=== PATIENT | female | born 1990 | race Caucasian/White ===

== ENCOUNTER 2023-05-04 10:52 | Outpatient (OUT) | payer BC, SELFPAY ==
[2023-05-04 12:50] LABS: Basophils Absolute Auto 0.1 10^3/uL (0.0-0.1); Eosinophils Absolute Auto 0.4 10^3/uL (0.0-0.7); Eosinophils Percent Auto 5.6 % (0.9-7.0); Hematocrit 40.1 % (36.0-48.0); Immature Granulocytes Abs Auto 0.03 10^3/uL (0.00-0.03); Immature Granulocytes Pct Auto 0.4 % (0.0-0.5); Lymphocytes Absolute Auto 2.4 10^3/uL (1.2-3.8); Lymphocytes Percent Auto 31.6 % (20.5-60.0); Mean Corpuscular HGB Conc 32.4 g/dL (29.9-35.2); Mean Corpuscular Hemoglobin 27.5 pg (26.7-34.0); Mean Corpuscular Volume 84.8 fL (81.0-99.0); Monocytes Absolute Auto 0.5 10^3/uL (0.3-0.8); Monocytes Percent Auto 6.7 % (1.7-12.0); Neutrophils Absolute Auto 4.2 10^3/uL (1.4-6.5); Neutrophils Percent Auto 54.7 % (43.0-75.0); Platelet Count 289 10^3/uL (150-450); Red Blood Count 4.73 10^6/uL (4.20-5.40); Red Cell Distribution Width 12.7 % (11.0-15.0); White Blood Count 7.7 10^3/uL (4.0-11.0)
[2023-05-04 13:05] LABS: Estimated Average Glucose 100 mg/dL; Glycohemoglobin A1C 5.1 % (4.5-6.2)
[2023-05-04 13:26] LABS: HCG Quantitative <1 mIU/mL
[2023-05-04 15:42] LABS: Free T4 1.12 ng/dL (0.76-1.46)
[2023-05-05 04:07] LABS: Luteinizing Hormone(LH) 9.1 mIU/mL (.)
[2023-05-07 14:08] LABS: Anti-Mullerian Hormone (AMH) 5.02 ng/mL (.)
[2023-05-11 02:07] LABS: DHEA, Serum 264 ng/dL (31-701)
== END 2023-05-04 10:53 | disposition home or self-care (01) ==
LOC: LAB 10:55
PROVIDERS: Visit Provider Obstetrics & Gynecology
DX: E28.2 Polycystic ovarian syndrome (principal)
CPT/HCPCS: 36415; 82397; 82626; 82627; 83001; 83002; 83036; 84439; 84443; 84702; 85025

== ENCOUNTER 2023-06-03 15:03 | Outpatient (OUT) | payer BC, SELFPAY ==
--- NOTE | 2023-06-03 15:07 | US_ITS ---
[address] [address] Patient Name: MABEL TOMLIN MRN: [id number] date: 1990 Sex: F Assigned Patient Location: US Current Patient Location: US Accession/Order Number: [id number] Exam Date: 06/03/2023 15:08 Report Date: 06/04/2023 18:00 At the request of: MARSHALL SALINAS Procedure: US OB transvaginal EXAMINATION: US OB transvaginal HISTORY: VAGINAL BLEEDING IN EARLY COMPARISON: No relevant comparison available. FINDINGS: Area of anechoic echogenicity in the endometrial cavity measuring 5.1 mm No pole is identified Cervix: Closed, 4 cm The uterus is normal, anteverted The ovaries are normal Clinical age: 5 weeks 3 days Clinical RONALDO: 01/31/2024 US/US OB transvaginal IMPRESSION: Possible very early intrauterine gestation. Correlate with beta hCG. Follow-up recommended Electronically authenticated by: BEN DURANT Date: 06/04/2023 18:00
== END 2023-06-03 15:04 | disposition home or self-care (01) ==
LOC: US 15:04
PROVIDERS: Visit Provider Physician Assistant
DX: R10.2 Pelvic and perineal pain (principal); R10.9 Unspecified abdominal pain; N92.6 Irregular menstruation, unspecified
CPT/HCPCS: 76817

== ENCOUNTER 2023-06-18 08:30 | Outpatient (OUT) | payer BC, SELFPAY ==
--- NOTE | 2023-06-18 08:32 | US_ITS ---
[address] [address] Patient Name: MABEL TOMLIN MRN: [id number] date: 1990 Sex: F Assigned Patient Location: US Current Patient Location: US Accession/Order Number: [id number] Exam Date: 06/18/2023 08:32 Report Date: 06/18/2023 10:23 At the request of: MIRLANDE RENE Procedure: US OB transvaginal EXAMINATION: US OB transvaginal HISTORY: MISSED MENSES COMPARISON: No relevant comparison available. FINDINGS: Plaza intrauterine gestation Gestational sac: 2.1 cm, 7 weeks 4 days CRL: 1.03 cm Yolk sac 0.1 mm Heart rate: 138 bpm Cervix: Closed, 4.2 cm The uterus is normal, retroverted, retroflexed The right ovary measures 3.3 x 2.5 x 3.0 cm. 1.8 cm corpus luteal cyst The left ovary is not visualized Clinical age: Unknown Ultrasound age: 7 weeks 1 day Ultrasound RONALDO: 02/03/2024 US/US OB transvaginal IMPRESSION: Viable plaza intrauterine gestation measuring 7 weeks 1 day Electronically authenticated by: BEN DURANT Date: 06/18/2023 10:23
== END 2023-06-18 08:31 | disposition home or self-care (01) ==
LOC: US 08:30
PROVIDERS: Visit Provider Obstetrics & Gynecology
DX: Z34.91 Encounter for supervision of normal pregnancy, unspecified, first trimester (principal); N92.6 Irregular menstruation, unspecified
CPT/HCPCS: 76817

== ENCOUNTER 2023-07-01 09:48 | Outpatient (OUT) | payer BC, SELFPAY ==
--- NOTE | 2023-07-01 09:58 | US_ITS ---
[place] [id number] Patient Name: MABEL TOMLIN MRN: [id number] date: 1990 Sex: F Assigned Patient Location: [facility] Current Patient Location: RAD Accession/Order Number: [id number] Exam Date: 07/01/2023 10:00 Report Date: 07/01/2023 15:17 At the request of: MIRLANDE RENE Procedure: US OB transvaginal EXAMINATION: US OB transvaginal HISTORY: Bleeding In Early O20.9, History Of Miscarriage COMPARISON: Ultrasound OB transvaginal 06/18/2023, 06/03/2023 FINDINGS: GESTATIONAL SAC: Present and normal appearing. YOLK SAC: Present and normal appearing. POLE: Present and normal appearing. CARDIAC: Present. UTERUS: Normal size and appearance. OVARIES: Right: Normal. Left: Not seen. CERVIX: 4.1 cm in length and closed. CUL-DE-SAC: Normal. OTHER: None. AGE BY LMP: 9 weeks 0 days RONALDO BY LMP: 02/03/2024 AGE BY US CRL: 9 weeks 0 days RONALDO BY US CRL: 02/03/2024 US/US OB transvaginal IMPRESSION: 1. Single live intrauterine . 2. No suspicious findings to suggest impending . Electronically authenticated by: FAVIAN FLORENTINO Date: 07/01/2023 15:17
== END 2023-07-01 09:49 | disposition home or self-care (01) ==
PROVIDERS: Visit Provider Obstetrics & Gynecology
DX: O20.9 Hemorrhage in early pregnancy, unspecified (principal); Z3A.09 9 weeks gestation of pregnancy
CPT/HCPCS: 76817

== ENCOUNTER 2023-07-06 11:57 | Outpatient (OUT) | payer BC, SELFPAY ==
[2023-07-06 12:35] LABS: Basophils Absolute Auto 0.1 10^3/uL (0.0-0.1); Basophils Percent Auto 0.6 % (0.2-2.0); Eosinophils Absolute Auto 0.4 10^3/uL (0.0-0.7); Eosinophils Percent Auto 2.8 % (0.9-7.0); Hematocrit 37.1 % (36.0-48.0); Hemoglobin 12.8 g/dL (12.0-16.0); Immature Granulocytes Abs Auto 0.05 10^3/uL (0.00-0.03); Immature Granulocytes Pct Auto 0.4 % (0.0-0.5); Lymphocytes Absolute Auto 2.3 10^3/uL (1.2-3.8); Lymphocytes Percent Auto 17.2 % (20.5-60.0); Mean Corpuscular HGB Conc 34.5 g/dL (29.9-35.2); Mean Corpuscular Hemoglobin 28.3 pg (26.7-34.0); Mean Corpuscular Volume 82.1 fL (81.0-99.0); Mean Platelet Volume 9.8 fL (9.5-13.5); Monocytes Percent Auto 7.4 % (1.7-12.0); Neutrophils Absolute Auto 9.4 10^3/uL (1.4-6.5); Neutrophils Percent Auto 71.6 % (43.0-75.0); Platelet Count 278 10^3/uL (150-450); Red Blood Count 4.52 10^6/uL (4.20-5.40); White Blood Count 13.1 10^3/uL (4.0-11.0)
[2023-07-06 12:43] LABS: BOX Test Sent Out Y
[2023-07-06 13:18] LABS: Thyroid Stimulating Hormone 0.037 uIU/mL (0.358-3.740)
[2023-07-06 13:26] LABS: Estimated Average Glucose 97 mg/dL
[2023-07-07 06:09] LABS: HBsAg Screen Negative (Negative); HCV Ab Non Reactive (Non Reactive); HIV Ab/p24 Ag Screen Non Reactive (Non Reactive)
[2023-07-07 07:08] LABS: Rubella Antibodies, IgG 1.04 index (Immune >0.99)
[2023-07-07 12:09] LABS: Rapid Plasma Reagin, Quant Non Reactive titer (NonRea<1:1)
== END 2023-07-06 11:58 | disposition home or self-care (01) ==
LOC: LAB 11:58
PROVIDERS: Visit Provider Obstetrics & Gynecology
DX: Z34.80 Encounter for supervision of other normal pregnancy, unspecified trimester (principal)
CPT/HCPCS: 36415; 83036; 84443; 85025; 86592; 86762; 86803; 86850; 86900; 86901; 87086; 87340; 87389

== ENCOUNTER 2023-09-23 08:27 | Outpatient (OUT) | payer BC, SELFPAY ==
--- NOTE | 2023-09-23 08:30 | US_ITS ---
[address] [address] Patient Name: MABEL TOMLIN MRN: [id number] date: 1990 Sex: F Assigned Patient Location: [facility] Current Patient Location: [facility] Accession/Order Number: [id number] Exam Date: 09/23/2023 08:31 Report Date: 09/23/2023 10:13 At the request of: MIRLANDE RENE Procedure: US OB anatomy EXAMINATION: US OB anatomy, US OB cervical length HISTORY: ANATOMY COMPARISON: No relevant comparison available. TECHNIQUE: Transabdominal sonographic examination was performed for obstetrical and evaluation. FINDINGS: Number: 1 Heart Rate: 141.0 bpm H.B. /min Amniotic Fluid Volume: Subjectively normal Placental Location: ANTERIOR with lower margin 1.9 cm from os. Cervix Length: 4.2 cm, closed. ANATOMY: Normal Structures -cerebellum, choroid plexus, cisterna magna, lateral cerebral ventricles, orbits, midline falx, hard palate, four-chamber heart, RVOT, LVOT, stomach, kidneys, bladder, umbilical cord insertion into abdomen, three-vessel cord, cervical spine, thoracic spine, lumbar spine, sacral spine, right upper extremity, left upper extremity, right lower extremity, left lower extremity. SUBOPTIMALLY SEEN: None ABNORMALITIES: None BIOMETRY: BPD: 5.1 cm 21 weeks 2 days HC: 18.8 cm 21 weeks 1 days AC: 17.8 cm 22 weeks 5 days FL: 3.4 cm 20 weeks 5 days EFW:444.1 grams; 67% FL/AC: 19.0 FL/BPD: 67.0 HC/AC: 1.1 GESTATIONAL AGE: Age by EDC: 21 weeks 2 days RONALDO by EDC: 02/01/2024 Age by current US: 21 weeks 3 days RONALDO by current US: 01/31/2024 US/US OB anatomy IMPRESSION: 1. Single live intrauterine with growth detailed above. 2. Low-lying anterior placenta. Electronically authenticated by: FAVIAN FLORENTINO Date: 09/23/2023 10:13
--- NOTE | 2023-09-23 08:30 | US_ITS ---
[address] [address] Patient Name: MABEL TOMLIN MRN: [id number] date: 1990 Sex: F Assigned Patient Location: [facility] Current Patient Location: [facility] Accession/Order Number: [id number] Exam Date: 09/23/2023 08:31 Report Date: 09/23/2023 10:13 At the request of: MIRLANDE RENE Procedure: US OB cervical length EXAMINATION: US OB anatomy, US OB cervical length HISTORY: ANATOMY COMPARISON: No relevant comparison available. TECHNIQUE: Transabdominal sonographic examination was performed for obstetrical and evaluation. FINDINGS: Number: 1 Heart Rate: 141.0 bpm H.B. /min Amniotic Fluid Volume: Subjectively normal Placental Location: ANTERIOR with lower margin 1.9 cm from os. Cervix Length: 4.2 cm, closed. ANATOMY: Normal Structures -cerebellum, choroid plexus, cisterna magna, lateral cerebral ventricles, orbits, midline falx, hard palate, four-chamber heart, RVOT, LVOT, stomach, kidneys, bladder, umbilical cord insertion into abdomen, three-vessel cord, cervical spine, thoracic spine, lumbar spine, sacral spine, right upper extremity, left upper extremity, right lower extremity, left lower extremity. SUBOPTIMALLY SEEN: None ABNORMALITIES: None BIOMETRY: BPD: 5.1 cm 21 weeks 2 days HC: 18.8 cm 21 weeks 1 days AC: 17.8 cm 22 weeks 5 days FL: 3.4 cm 20 weeks 5 days EFW:444.1 grams; 67% FL/AC: 19.0 FL/BPD: 67.0 HC/AC: 1.1 GESTATIONAL AGE: Age by EDC: 21 weeks 2 days RONALDO by EDC: 02/01/2024 Age by current US: 21 weeks 3 days RONALDO by current US: 01/31/2024 US/US OB cervical length IMPRESSION: 1. Single live intrauterine with growth detailed above. 2. Low-lying anterior placenta. Electronically authenticated by: FAVIAN FLORENTINO Date: 09/23/2023 10:13
--- OUTSIDE RECORDS SUMMARY | 2023-09-23 08:30 | XMS_ITS | CCD ---
Author Name Unknown Address [address] [place] [id number] Organization [facility] Care Team Providers Care Demo Coordinator Name Role Phone Elina Jean Primary Care Physician Jory Doran Primary Care Physician RITA SALINAS Attending Unavailable MIRLANDE BLAIR Attending Unavailable Rik Crespo Attending Unavailable rita salinas Admitting Unavailable rita salinas Attending Unavailable Mirlande BLAIR Admitting Unavailable Mirlande BLAIR Attending Unavailable Narcisa Gordon Attending Unavailable Missler, Jory Owusu Attending Unavailab le Missler, Jory Owusu Attending Unavailab le Missler, Jory Owusu Attending Unavailab le Missler, Jory Owusu Attending Unavailab le Missler, Jory Owusu Attending Unavailab le Missler, Jory Owusu Attending Unavailab le ERAN DODIMITRI Admitting Unavailable ERAN DODIMITRI Attending Unavailable ERAN DODIMITRI Admitting Unavailable ERAN DO, DIMITRI Attending Unavailable EDGARDSheylay R Admitting Unavailable EDGARDMirlande R Attending Unavailable EDGARDSheylay R Admitting Unavailable EDGARDMirlande R Attending Unavailable Allergies Allergy Classification Reported Allergen(s) Allergy Type Date of Onset Reaction(s) Facility (15 sources) atomoxetine; Translations: [atomoxetine] Drug Allergy Drug-induced acute pancreatitis (disorder) [facility] Medications Current Medications Medication Drug Class(es) Dates Sig (Normalized) Sig (Original) 24 hr amphetamine aspartate 1.25 mg / amphetamine sulfate 1.25 mg / dextroamphetamine saccharate 1.25 mg / dextroamphetamine sulfate 1.25 mg extended release oral capsule (14 sources) Central Nervous System Stimulant Start: 08-25-2023 Adderall XR 5 mg oral capsule, extended release 5 mg, 1 cap(s), Oral, qAM, 30 cap(s), Refill(s) 0 Start Date: 08/25/23 Status: Ordered Start: 05-24-2023 Adderall XR 5 mg oral capsule, extended release 5 mg, 1 cap(s), Oral, qAM, 30 cap(s), Refill(s) 0 Start Date: 05/24/23 Status: Ordered Start: 04-22-2023 End: 05-22-2023 Adderall XR 5 mg oral capsul e, extended release 5 mg, 1 cap(s), Oral, qAM for 30 day(s), 30 cap(s), Refill(s) 0 Start Date: 04/22/23 Stop Date: 05/22/23 Status: Ordered Start: 02-22-2023 End: 04-21-2023 Adderall XR 5 mg oral capsul e, extended release 5 mg, 1 cap(s), Oral, qAM for 30 day(s), 30 cap(s), Refill(s) 0 Start Date: 03/22/23 Stop Date: 04/21/23 Status: Ordered Start: 01-19-2023 End: 02-18-2023 Adderall XR 5 mg oral capsul e, extended release 5 mg, 1 cap(s), Oral, qAM for 30 day(s), 30 cap(s), Refill(s) 0 Start Date: 01/19/23 Stop Date: 02/18/23 Status: Ordered Start: 11-23-2022 End: 12-23-2022 Adderall XR 5 mg oral capsul e, extended release 5 mg, 1 cap(s), Oral, qAM for 30 day(s), 30 cap(s), Refill(s) 0 Start Date: 11/23/22 Stop Date: 12/23/22 Status: Ordered Start: 09-23-2022 End: 10-23-2022 Adderall XR 5 mg oral capsul e, extended release 5 mg, 1 cap(s), Oral, qAM for 30 day(s), 30 cap(s), Refill(s) 0, call for refills Start Date: 09/23/22 Stop Date: 10/23/22 Status: Ordered Start: 03-03-2017 take 2 capsules by m outh once daily in the morning Adderall XR 20 mg Cap-ER 40 mg = 2 cap(s), Oral, qAM, Refills(s) 0 Start Date: 03/03/17 Status: Ordered Start: 03-03-2017 take 2 capsules by m outh once daily in the morning Adderall XR 20 mg Cap-ER 40 mg = 2 cap(s), Oral, qAM, Refills(s) 0 Start Date: 03/03/17 Status: Ordered azithromycin 500 mg oral tablet (1 source) Macrolide Antimicrobial Start: 01-14-2021 take 1 tablet by mouth once daily Zithromax TRI-JOHN 500 mg oral tablet 500 mg = 1 tab(s), Oral, Daily, # 3 tab(s), Refills(s) 0 Start Date: 01/14/21 Status: Ordered cetirizine hydrochloride 10 mg oral tablet (2 sources) Histamine-1 Receptor Antagonist Start: 01-14-2021 take 1 tablet by mouth once daily cetirizine 10 mg Tab 10 mg = 1 tab(s), Oral, Daily, # 30 tab(s), Refills(s) 0 Start Date: 01/14/21 Status: Ordered dicyclomine hydrochloride 10 mg oral capsule (1 source) Anticholinergic Start: 07-24-2022 End: 07-31-2022 take 1 capsule by mouth four times daily Bentyl 10 mg Cap 10 mg = 1 cap(s), Oral, QID, X 7 day(s), # 14 cap(s), Refills(s) 0 Start Date: 07/24/22 Stop Date: 07/31/22 Status: Ordered Etonogestrel (2 sources) Progestin Start: 03-02-2017 Implanon Implant, Once, Refills(s) 0 Start Date: 03/02/17 Status: Ordered levocetirizine dihydrochloride 5 mg oral tablet (12 sources) Histamine-1 Receptor Antagonist Start: 09-23-2022 Xyzal 5 mg oral tablet Refill(s) 0 Start Date: 09/23/22 Status: Ordered Multivitamin preparation (12 sources) Start: 09-23-2022 multivitamin Refill(s) 0 Start Date: 09/23/22 Status: Ordered Zithromax TRI-JOHN 500 mg oral tablet (1 source) Start: 01-14-2021 take 1 tablet by mouth once daily Zithromax TRI-JOHN 500 mg oral tablet 500 mg = 1 tab(s), Oral, Daily, # 3 tab(s), Refills(s) 0 Start Date: 01/14/21 Status: Ordered Zofran ODT 4 mg Tab-Dis (1 source) Start: 07-24-2022 take 1 tablet by mouth every eight hours Zofran ODT 4 mg Tab-Dis 4 mg = 1 tab(s), Oral, q8hr, # 12 tab(s), Refills(s) 0 Start Date: 07/24/22 Status: Ordered Problems Active Problems Problem Classification Problem Date Documented Da te Episodic/Chronic Attention-deficit, conduct, and disruptive behavior disorders (18 sources) Attention deficit hyperactivity disorder; Translations: [Attention-deficit hyperactivity disorder, unspecified type] Onset: 09-18-2022 05-25-2010 Chronic Chronic obstructive pulmonary disease and bronchiectasis (4 sources) Bronchitis; Translations: [Bronchitis, not specified as acute or chronic] Onset: 03-15-2023 Episodic Mood disorders (4 sources) Depressive disorder 03-02-2017 Chronic Nausea and vomiting (1 source) Nausea and vomiting; Translations: [Nausea with vomiting, unspecified] Onset: 07-24-2022 Episodic Other aftercare (3 sources) Long-term current use of drug therapy; Translations: [Other half-way (current) drug therapy] Onset: 01-19-2023 Episodic Other gastrointestinal disorders (1 source) Diarrhea; Translations: [Diarrhea, unspecified] Onset: 07-24-2022 Episodic Other gastrointestinal disorders (1 source) Constipation, unspecified; Translations: [Constipation, unspecified] Onset: 07-07-2023 Episodic Other nutritional; endocrine; and metabolic disorders (1 source) Obesity; Translations: [Other obesity] Onset: 09-23-2022 Chronic Other nutritional; endocrine; and metabolic disorders (13 sources) Overweight in adulthood with body mass index of 25 or more but less than 30; Translations: [Body mass index (BMI) 27.0-27.9, adult] Onset: 09-23-2022 Episodic Other nutritional; endocrine; and metabolic disorders (12 sources) Overweight; Translations: [Overweight] Onset: 01-19-2023 Episodic Other upper respiratory disease (12 sources) Seasonal allergic rhinitis 09-23-2022 Chronic Pancreatic disorders (not diabetes) (4 sources) Pancreatitis 10-13-2013 Episodic Residual codes; unclassified (2 sources) Gestation period, 12 weeks 07-09-2023 Episodic Unclassified (10 sources) Drug therapy finding 01-19-2023 Unclassified (4 sources) Patient encounter status 01-19-2023 Past or Other Problems Problem Classification Problem Date Documented Da te Episodic/Chronic Fluid and electrolyte disorders (2 sources) Dehydration Onset: 03-06-2012 10-13-2013 Episodic Results Test Name Value Interpretation Reference Range Facility AFP Maternalon 09-08-2023 AFP [Mass/Vol] 34.6 ng/mL Invalid Interpretation Code [facility] Comment on above: Performed By: #### 1 [id number] ####[id number] [place] [address] AFP [MoM] 0.87 Invalid Interpretation Code [facility] Comment on above: Performed By: #### 1 [id number] ####[id number] [place] [address] AFP Comment Comment Invalid Interpretation Code [facility] Comment on above: Result Comment: Maximo Whitaker, Ph.D., [facility] Director References: Available Upon Request. Multiples Of Median Cutoffs For AFP Elevations Da Silva 2.5 Black 2.8 IDD 2.0 Twins 4.5 Abbreviation Definitions IDD - Insulin Dep Diabetes OSBR - Open Spina Bifida Risk For further inquiries contact [facility] at [phone]. This test was developed and its performance characteristics determined by [facility]. It has not been cleared or approved by the Food and Drug Administration. Performed at: [facility] [address] [facility], [place] [id number] [facility] Yuri Albert Performed By: #### 1 [id number] ####[facility] [address] [place] [address] AFP interpretation [Interp] Negative Invalid Interpretation Code [facility] Comment on above: Performed By: #### 1 [id number] ####[facility] [address] [place] [address] AFP interpretation Edmundo [Interp] Comment Invalid Interpretation Code [facility] Comment on above: Result Comment: Inte rpretation: Screen Negative This result is screen negative for OSB. The AFP MoM calculated is based on the gestational age provided. MS-AFP can identify up to 80% of open neural tube defects. Closed neural tube defects and some open defects may not be detected by this test. This test does not screen for Down Syndrome or Trisomy 18. If screening for Down Syndrome or Trisomy 18 is desired, contact [facility] to discuss available options. The [place] [employer] recommends amniocentesis be offered to women age 35 and older. Performed By: #### 1 [id number] ####[place] [address] AFP Maternal Report Invalid Interpretation Code [facility] Comment on above: Performed By: #### 1 [id number] ####[place] [id number] AGE.AT DELIVERY:TIME:PT: 31.1 Invalid Interpretation Code [facility] Comment on above: Performed By: #### 1 [id number] ####[place] [id number] GESTATIONAL AGE METHOD:PRID:PT: Ultrasound Invalid Interpretation Code [facility] Comment on above: Result Comment: 16:6 on 08/23/2023 Recalculations are not recommended when gestational dating by LMP and ultrasound are within 10 days. Performed By: #### 1 [id number] ####[place] [id number] GESTATIONAL AGE:TIME:PT: 18.4 week(s) Invalid Interpretation Code [facility] Comment on above: Performed By: #### 1 [id number] ####[place] [address] [id number] INSULIN DEPENDENT DIABETES MELLITUS:PRTHR:PT: No Invalid Interpretation Code [facility] Comment on above: Performed By: #### 1 [id number] ####[place] [id number] MULTIPLE :FIND:PT: No Invalid Interpretation Code [facility] Comment on above: Performed By: #### 1 [id number] ####[facility] [address] [place] [address] NEURAL TUBE DEFECT RISK:LIKELIHOOD:PT: 13987 Invalid Interpretation Code [facility] Comment on above: Performed By: #### 1 [id number] ####[facility] [address] [place] [address] RACE:TYPE:PT: Invalid Interpretation Code [facility] Comment on above: Performed By: #### 1 [id number] ####[facility] [address] [place] [address] Physician Orderon 09-08-2023 Physician Order [id number] 3#1.00TIFF [facility] CHEMISTRYOrdered By: SYSTEM SYSTEM on 09-03-2023 TSH Qn 0.66 m[IU]/L Normal 0.34 - 5.60 mcIU/mL Remisol Chem Consent for Treatmenton Consent for Treatment [id number] #1.00TIFF Normal [facility] Consent for Treatment [id number] #1.00TIFF Normal [facility] Physician Orderon 09-03-2023 Physician Order [id number] 47#1.00TIFF Normal [facility] TSHon 09-03-2023 TSH Qn 0.66 m[IU]/L Normal 0.34-5.60 [facility] Comment on above: Performed By: #### 2 [id number] #### [facility] [address] [place] [address] Ambulatory Visit Summaryon 1 09-16-2022 Ambulatory Visit Summary JOSIE TOMLIN :1990 Visit Date:07/16/2023 Ambulatory Visit Instructions Your Diagnosis ADHD - Attention deficit disorder with hyperactivity High risk medication use 12 weeks gestation of Overweight BMI 29.0-29.9,adult Your Care Team Attending Physician - Jory Monet Primary Care Physician - Jory Monet This Is Your Medications List amphetamine-dextroam phetamine (Adderall XR 5 mg oral capsule, extended release) levocetirizine (Xyzal 5 mg oral tablet) multivitamin Procedures Performed Pap smear and HPV cotesting (12/2021), Colonoscopy (2009), Maxillary sinus endoscopy with removal of cyst. Discharge Vitals Temperature (Oral) 36.8 ?C Heart Rate (Peripheral) 89 Blood Pressure 124/68 Height 168 cm Height 66 in Weight 83.5 kg Weight 183.7 lb BMI 29.58 What to do next You Need to Schedule the Following Appointments Follow Up with Jory Monet When: In 3 months Comments: f/u ADHD, med recheck Where: [address] [facility], [place] [address]- Medications What How Much When Why Instructions Unchanged amphetamine-dextroam phetamine (Adderall XR 5 mg oral capsule, extended release) 1 Capsules By Mouth Once a day (in the morning) ADHD - Attention deficit disorder with hyperactivity Unchanged levocetirizine (Xyzal 5 mg oral tablet) Unchanged multivitamin Allergies Strattera (Drug-induced acute pancreatitis) Problems Ongoing - Any problem that you are currently receiving treatment for. 12 weeks gestation of ADHD - Attention deficit disorder with hyperactivity BMI 29.0-29.9,adult High risk medication use Overweight Seasonal allergic rhinitis Patient Survey You may receive a survey via text or e-mail asking about your office visit. Please share your experience with us by completing your survey. We appreciate your feedback and thank you for choosing us for your care. Education Materials BMI for Adults What is BMI? Body mass index (BMI) is a number that is calculated from a person's weight and height. BMI can help estimate how much of a person's weight is composed of fat. BMI does not measure body fat directly. Rather, it is an alternative to procedures that directly measure body fat, which can be difficult and expensive. BMI can help identify people who may be at higher risk for certain medical problems. What are BMI measurements used for? BMI is used as a screening tool to identify possible weight problems. It helps determine whether a person is obese, overweight, a healthy weight, or underweight. BMI is useful for: ? Identifying a weight problem that may be related to a medical condition or may increase the risk for medical problems. ? Promoting changes, such as changes in diet and exercise, to help reach a healthy weight. BMI screening can be repeated to see if these changes are working. How is BMI calculated? BMI involves measuring your weight in relation to your height. Both height and weight are measured, and the BMI is calculated from those numbers. This can be done either in [place] or metric measurements. Note that charts and online BMI calculators are available to help you find your BMI quickly and easily without having to do these calculations yourself. To calculate your BMI in [place] measurements: 1. Measure your weight in pounds (lb). 2. Multiply the number of pounds by 703. ? For example, for a person who weighs 180 lb, multiply that number by 703, which equals 126,540. 3. Measure your height in inches. Then multiply that number by itself to get a measurement called inches squared. ? For example, for a person who is 70 inches tall, the inches squared measurement is 70 inches x 70 inches, which equals 4,900 inches squared. 4. Divide the total from step 2 (number of lb x 703) by the total from step 3 (inches squared): 126,540 ? 4,900 = 25.8. This is your BMI. To calculate your BMI in metric measurements: 1. Measure your weight in kilograms (kg). 2. Measure your height in meters (m). Then multiply that number by itself to get a measurement called meters squared. ? For example, for a person who is 1.75 m tall, the meters squared measurement is 1.75 m x 1.75 m, which is equal to 3.1 meters squared. 3. Divide the number of kilograms (your weight) by the meters squared number. In this example: 70 ? 3.1 = 22.6. This is your BMI. What do the results mean? BMI charts are used to identify whether you are underweight, normal weight, overweight, or obese. The following guidelines will be used: ? Underweight: BMI less than 18.5. ? Normal weight: BMI between 18.5 and 24.9. ? Overweight: BMI between 25 and 29.9. ? Obese: BMI of 30 or above. Keep these notes in mind: ? Weight includes both fat and muscle, so someone with a muscular build (more content not included)... Normal [facility] Medicine Office/Clini c Noteon 07-16-2023 Family Medicine Office/Clinic Note Chief Complaint pt here for 3 month f/u. HPI Staff Last routine labs: 07/24/22 smoker status: never Pap (21-64yo): due flu vaccine status: utd covid vaccine: utd History of Present Illness Josie is a 32 yo female presenting today for 3 mo f/u Pt is currently 12 weeks - due 02/03/24 ADHD f/u: Symptoms are present in more than one setting and include: Trouble focusing: yes Inability to concentrate: yes Trouble completing tasks: yes Hyperactivity: yes Current medications: Adderall 5mg ER qd Symptoms are well-controlled on the current regimen There are no significant side effects such as: Palpitations, Chest pain, Decreased appetite, Weight loss, Insomnia, Anxiety/jitteriness Drug holidays are not taken. Improvements have been made in work, attentiveness, hyperactivity, impulsivity, school/work behavior, home behavior, and in organizational skills. OARRS Verification: OARRS report reviewed. No problems noted. Review of Systems PHQ Score Initial Depression Screen Score: 0 SCORE Physical Exam Vitals & Measurements T: 36.8 ?C(Oral) HR: 89(Peripheral) BP: 124/68 SpO2: 98% HT: 66 in HT: 168 cm WT: 83.5 kg WT: 183.7 lb BMI: 29.58 General: Well developed, well nourished, in no acute distress Eyes: Bilateral PERRLA, conjunctivae and sclerae wnl, EOMs intact, lids without stye, chalazion, ect/extropion, ptosis, xanthelasma, blepharitis. No discharge to inner canthi.Negative for corneal abrasion or foreign bodies. Ears: grossly normal hearing Nose: No deformity, discharge, inflammation, or lesions. No congestion, no erythema; pink & moist turbinates; clear rhinorrhea. Mouth: mucous membranes pink, moist and intact. [place] posterior oropharynx, no palatal inflammation, uvula midline, no cobble-stoning, no enlarged tonsils, no tonsillar exudate, no ulcers, no active post nasal drip. tongue midline and wnl. Good dentition. Neck: Neck supple. No lymphadenopathy. Trachea midline. No thyroid, masses, tenderness, or enlargement noted. No bruit. Lungs: Normal respiratory effort and clear to auscultation Cardio: Regular rate and rhythm, normal S1 and S2, no murmur, no rub Abdomen: not assessed Musculoskeletal: No deformity or scoliosis noted. No vertebral tenderness. Normal range of motion. No vertebral point tenderness. Joints normal. No erythema, edema, effusion, crepitus, or ecchymosis. Straight leg raise negative Extremity: No clubbing, cyanosis, edema, or deformity. Normal ROM with upper and lower extremities, bilaterally. Neurologic: Cranial nerves II-XII grossly intact. motor strength equal & normal bilaterally, sensation equal & normal bilaterally. Gait normal. Skin: No rashes, ulcerations, or suspicious lesions Mental Status: Alert and oriented x3. Normal mood and affect Assessment/Plan 1. ADHD - Attention deficit disorder with hyperactivity (F90.9: Attention-deficit hyperactivity disorder, unspecified type) Pt counseled at length that teratogenicity risk is unknown with the use of Adderall during . She elected to continue the medication during this time and has discussed this with her OBGYN. stable Patient to continue medications: Adderall XR 5mg qAM at this time (see note above) Discussed side effects of this medication including: dependency, abuse, increased BP, seizures, sexual dysfunction, growth suppression, aggressive behavior, withdrawal sx if abrupt D/C (prolonged high-dose use). Pt verbalized understanding. OARRS reviewed - Patient is approved at this time for Rx f/u 3 months, call for refills in between appts Ordered: amphetamine-dextroam phetamine, 5 mg, 1 cap(s), Oral, qAM, 30 cap(s), Refill(s) 0, [email or web address] #[id number], 168, cm, 07/16/23 9:27:00 EST, Height/Length Dosing, 83.5, kg, 07/16/23 9:27:00 EST, Weight Dosing 2. 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 Last fill was 06/25/23. 3. 12 weeks gestation of (Z3A.12: 12 weeks gestation of ) followed by [facility] XIAO - Dr. Blair 4. Overweight (E66.3: Overweight) BMI is within goal range. Continue well balanced diet and portion control. Continue to exercise as tolerated to maintain weight 5. BMI 29.0-29.9,adult (Z68.29: Body mass index [BMI] 29.0-29.9, adult) The standard range for ages 18 and older is >=18.5 and < 25 kg/m2. Your BMI today was above this range, this falls in the overweight to obese category and there are medical benefits to weight loss. We can offer counselling, referral, and/or medical support in addressing this problem. Your BMI and weight management will be followed at subsequent visits. Follow-up With When Contact Information Jory Monet In 3 months [address] [facility], [place] [address]- Additional Instructions: f/u ADHD, med recheck Patient Education BMI for Adults Attention Def (more content not included)... Normal [facility] Comment on above: Result Comment: Elec tronically Signed By: Jory Monet\.br\Date and Time Signed: 07/16/23 09:50 EST Patient Educationon 07-09-20 23 Patient Education Mental and Behavioral Health Attention Deficit Hyperactivity Disorder, Adult Attention deficit hyperactivity disorder (ADHD) is a mental health disorder that starts during childhood. For many people with ADHD, the disorder continues into the adult years. Treatment can help you manage your symptoms. There are three main types of ADHD: ? Inattentive. With this type, adults have difficulty paying attention. This may affect cognitive abilities. ? Hyperactive-impulsiv e. With this type, adults have a lot of energy and have difficulty controlling their behavior. ? Combination type. Some people may have symptoms of both types. What are the causes? The exact cause of ADHD is not known. Most experts believe a person's genes and environment possibly contribute to ADHD. What increases the risk? The following factors may make you more likely to develop this condition: ? Having a first-degree relative such as a parent, brother, or sister, with the condition. ? Being born before 37 weeks of (prematurely) or at a low weight. ? Being born to a mother who smoked tobacco or drank alcohol during . ? Having experienced a brain injury. ? Being exposed to lead or other toxins in the womb or early in life. What are the signs or symptoms? Symptoms of this condition depend on the type of ADHD. Symptoms of the inattentive type include: ? Difficulty paying attention or following instructions. ? Often making simple mistakes. ? Being disorganized. ? Avoiding tasks that require time and attention. ? Losing and forgetting things. Symptoms of the hyperactive-impulsiv e type include: ? Restlessness. ? Talking out of turn, interrupting others, or talking too much. ? Difficulty with: ? Sitting still. ? Feeling motivated. ? Relaxing. ? Waiting in line or waiting for a turn. People with the combination type have symptoms of both of the other types. In adults, this condition may lead to certain problems, such as: ? Keeping jobs. ? Performing tasks at work. ? Having stable relationships. ? Being on time or keeping to a schedule. How is this diagnosed? This condition is diagnosed based on your current symptoms and your history of symptoms. The diagnosis can be made by a health care provider such as a primary care provider or a mental health rn transitional care. Your health care provider may use a symptom checklist or a behavior rating scale to evaluate your symptoms. Your health care provider may also want to talk with people who have observed your behaviors throughout your life. How is this treated? This condition can be treated with medicines and behavior therapy. Medicines may be the best option to reduce impulsive behaviors and improve attention. Your health care provider may recommend: ? Stimulant medicines. These are the most common medicines used for adult ADHD. They affect certain chemicals in the brain (neurotransmitters) and improve your ability to control your symptoms. ? A non-stimulant medicine. These medicines can also improve focus, attention, and impulsive behavior. It may take weeks to months to see the effects of this medicine. Counseling and behavioral management are also important for treating ADHD. Counseling is often used along with medicine. Your health care provider may suggest: ? Cognitive behavioral therapy (CBT). This type of therapy teaches you to replace negative thoughts and actions with positive thoughts and actions. When used as part of ADHD treatment, this therapy may also include: ? Coping strategies for organization, time management, impulse control, and stress reduction. ? Mindfulness and meditation training. ? Behavioral management. You may work with a scrum coach who is specially trained to help people with ADHD manage and organize activities and function more effectively. Follow these instructions at home: Medicines ? Take ftib-zys-axxjlei and prescription medicines only as told by your health care provider. ? Talk with your health care provider about the possible side effects of your medicines and how to manage them. Alcohol use ? Do not drink alcohol if: ? Your health care provider tells you not to drink. ? You are , may be , or are planning to become . ? If you drink alcohol: ? Limit how much you use to: ? 0?1 drink a day for women. ? 0?2 drinks a day for men. ? Know how much alcohol is in your drink. In the [place] one drink equals one 12 oz bottle of beer (355 mL), one 5 oz glass of wine (148 mL), or one 1? oz glass of hard liquor (44 mL). Lifestyle ? Do not use illegal drugs. ? Get enough sleep. ? Eat a healthy diet. ? Exercise regularly. Exercise can help to reduce stress and anxiety. General instructions ? Learn as much as you can about adult ADHD, and work closely with your health care providers to find the treatments that work best for you. ? Follow th (more content not included)... Normal [facility] ED Note-Physicianon 07-08-20 ED Note-Physician Basic Information Time Seen: Rik Crespo DO 07/07/2023 14:55 Chief Complaint pt states no BM x2 weeks now causing abd pain and bloating. 10 weeks IUP. no relief at home with enema, miralax or stool softeners History of Present Illness 32-year-old female who is currently 10 weeks to the emergency department chief complaint of constipation. Patient reports that she has morning sickness that is quite severe for which she takes Zofran. She believes the constipation of decreased intake, Zofran, dehydration has caused her to become severely constipated. She reports she did go but inability to. She attempted manual disimpaction at home. Review of Systems A 10 point review of systems is negative except as noted above. Medical and Surgical History: Reviewed and noted Social history: Lives at home Tobacco: Denies Physical Exam Vitals & Measurements T: 36.8 ?C(Oral) HR: 90(Monitored) RR: 16 BP: 141/81 SpO2: 96% HT: 168 cm WT: 84 kg BMI: 29.76 VITALS: I have reviewed the triage vital signs. GENERAL: Well developed, well appearing adult in no acute distress. NEURO: Alert and oriented. Moves all extremities. Face is symmetric and expressive. EYES: PERRL. No scleral icterus or conjunctival injection. No discharge. HENT: Normocephalic, atraumatic. Hearing is grossly intact. Nares grossly patent and without discharge. Mucous membranes moist. NECK: No JVD. Patient moves neck without restriction. CARDIO: Rhythm regular. Normal rate. No murmur, rub, or gallop. Pulses equal bilaterally in the upper and lower extremity. No lower extremity edema. PULM: Lungs clear to auscultation in all lopez. No wheezes, rales, or rhonchi. No conversational dyspnea. No splinting, stridor, or accessory muscle use. GI/: Abdomen is soft and non-tender. Normoactive bowel sounds. EXTREMITIES: Symmetric muscle bulk. No joint swelling. No clubbing, cyanosis, or deformity. SKIN: Warm and dry. Normal turgor. No rash or lesions appreciated. PSYCH: Mood, affect, and interaction is appropriate to the setting. Medical Decision Making 32-year-old female to the emergency department chief complaint of constipation. Vital stable, the patient is afebrile. Nurse present at the bedside, rectal exam was performed. There is no stool in the vault. Does not appear to be a impaction. Discussed risks and benefits of x-ray imaging and she is agreeable. She has stool burden throughout the colon. UA unremarkable. We discussed therapy at home. Will initiate MiraLAX, Colace. Return precaution discussed. All questions were answered. The patient was discharged home. Assessment/Plan Acute constipation (K59.00: Constipation, unspecified) Orders: UA With Cult Reflex XR Abdomen 1 View Disposition Plan Patient Discharge Condition Stable Discharge Disposition Home Discharge Prescription List Prescriptions No active prescription medications Follow-up With When Contact Information Jory Doran In 3 days 07/10/2023 EST [address], [place] [address]- Business (1) Additional Instructions: Call the office of your primary care doctor to arrange for follow-up within the above-stated timeframe. Follow-up with your primary care doctor about this ED visit. You should review your labs, imaging, and diagnoses from this ED visit with your primary care physician. There are occasionally non-emergent findings that require additional follow-up after your ED visit. If you were prescribed medications you should discuss possible side-effects and drug interactions with your pharmacist. Call 911 or go to the nearest Emergency Department if you develop any new or worsening symptoms. Seek immediate medical attention if you develop: worsening abdominal pain, new or worsening nausea, new or worsening vomiting, new or worsening diarrhea, chest pain, shortness of breath, pain with urination, problems urinating, fever, chills, weakness, or any new or worsening symptoms. Begin taking Colace stool softener. Buy one 250 g container of MiraLAX. Buy 2x 32oz ounce Gatorade's. Split the 250 g MiraLAX between the 2 Gatorade's. Drink 1 of those tonight. If no results drink the other 1 tomorrow. Patient Education Constipation, Adult Problem List/Past Medical History Ongoing ADHD - Attention deficit disorder with hyperactivity BMI 29.0-29.9,adult High risk medication use Overweight Seasonal allergic rhinitis Historical No qualifying data Procedure/Surgical History Pap smear and HPV cotesting (12/2021), Colonoscopy (2009), Maxillary sinus endoscopy with removal of cyst. Medications Inpatient No active inpatient medications Home Adderall XR 5 mg oral capsule, extended release, 5 mg= 1 cap(s), Oral, qAM multivitamin Xyzal 5 mg oral tablet Allergies Strattera (Drug-induced acute pancreatitis) Social History Alcohol - Denies Alcohol Use, 05/25/2010 Current, Beer, 1-2 times per week, 03/02/2017 Substance Abuse - Denies Substance Abuse, (more content not included)... Normal [facility] Comment on above: Result Comment: Elec tronically Signed By: Rik Crespo DO\.br\Date and Time Signed: 07/08/23 08:26 EST Consent for Treatmenton 12-0 Consent for Treatment [id number] 4#1.00TIFF Normal [facility] Discharge Instructionson Discharge Instructions [id number] 4#1.00TIFF Normal [facility] ED Clinical Summaryon 2022 ED Clinical Summary [place] [id number] ED Clinical Summary Person Information Name: JOSIE TOMLIN [facility] Age: 32 Years : 1990 Sex: Female Language: Slovenian PCP: Jory Monet Marital Status: Single Visit Id: Visit Reason: Constipation; Abdominal pain - ; SEVERE CONSTIPATION - SEVERE PAIN , 10 WKS Speciality: Acuity: 3 Enc Type: Emergency Med Service: Emergency Arrival: 07/07/2023 13:22:40 Discharge: 07/07/2023 16:18:41 LOS: 000 02:56 Checkin: 07/07/2023 13:22:40 Checkout: 07/07/2023 16:18:41 Dispo Type: Home (Routine DC) EVENTS: Event Name Event Status Request Date/Time Start Date/Time Complete Date/Time Arrive Complete 07/07/2023 13:22:40 07/07/2023 13:22:40 07/07/2023 13:22:40 Document Home Meds Request 07/07/2023 13:22:40 Triage Complete 07/07/2023 13:22:40 07/07/2023 13:38:47 07/07/2023 13:38:47 Bed Assign Complete 07/07/2023 14:46:53 07/07/2023 14:46:53 07/07/2023 14:46:53 Dr Exam Complete 07/07/2023 14:46:53 07/07/2023 14:55:22 07/07/2023 14:55:22 RN Exam Complete 07/07/2023 14:46:53 07/07/2023 15:22:53 07/07/2023 15:22:53 Registration Complete 07/07/2023 14:55:22 07/07/2023 15:03:31 07/07/2023 15:03:31 Pending Labs Complete 07/07/2023 14:55:45 07/07/2023 15:33:56 Lab Complete 07/07/2023 14:55:45 07/07/2023 15:33:56 Urine Collect Complete 07/07/2023 14:55:45 07/07/2023 15:33:56 Reg Complete Request 07/07/2023 15:03:31 Reg Bed Request Complete 07/07/2023 15:03:31 07/07/2023 15:03:31 07/07/2023 15:03:31 X-Ray Complete 07/07/2023 15:09:53 07/07/2023 15:24:34 07/07/2023 15:37:45 Wet Read Request 07/07/2023 15:37:45 Discharge Complete 07/07/2023 16:13:47 07/07/2023 16:18:46 07/07/2023 16:18:46 Transfer Complete 07/07/2023 16:18:46 07/07/2023 16:18:46 07/07/2023 16:18:46 ADDRESS: [address] [place] [id number] PHYS DOC NOTES: MEDICAL INFORMATION: Prescriptions Given: Medications to Continue with No Changes Other Medications amphetamine-dextroam phetamine (Adderall XR 5 mg oral capsule, extended release) 1 Capsules By Mouth once a day (in the morning). Refills: 0. levocetirizine (Xyzal 5 mg oral tablet) multivitamin PATIENT EDUCATION INFORMATION: Instructions: Constipation, Adult Follow up: With: Address: When: Jory Ghosh [facility], [place] [address] Business (1) In 3 days 07/10/2023 Comments: Call the office of your primary care doctor to arrange for follow-up within the above-stated timeframe. Follow-up with your primary care doctor about this ED visit. You should review your labs, imaging, and diagnoses from this ED visit with your primary care physician. There are occasionally non-emergent findings that require additional follow-up after your ED visit. If you were prescribed medications you should discuss possible side-effects and drug interactions with your pharmacist. Call 911 or go to the nearest Emergency Department if you develop any new or worsening symptoms. Seek immediate medical attention if you develop: worsening abdominal pain, new or worsening nausea, new or worsening vomiting, new or worsening diarrhea, chest pain, shortness of breath, pain with urination, problems urinating, fever, chills, weakness, or any new or worsening symptoms. Begin taking Colace stool softener. Buy one 250 g container of MiraLAX. Buy 2x 32oz ounce Gatorade's. Split the 250 g MiraLAX between the 2 Gatorade's. Drink 1 of those tonight. If no results drink the other 1 tomorrow. DIAGNOSIS: Acute constipation Normal [facility] ED Patient Education Noteon 07-07-2023 ED Patient Education Note Gastroenterology Constipation, Adult Constipation is when a person has fewer than three bowel movements in a week, has difficulty having a bowel movement, or has stools (feces) that are dry, hard, or larger than normal. Constipation may be caused by an underlying condition. It may become worse with age if a person takes certain medicines and does not take in enough fluids. Follow these instructions at home: Eating and drinking ? Eat foods that have a lot of fiber, such as beans, whole grains, and fresh fruits and vegetables. ? Limit foods that are low in fiber and high in fat and processed sugars, such as fried or sweet foods. These include armenian fries, hamburgers, cookies, candies, and soda. ? Drink enough fluid to keep your urine pale yellow. General instructions ? Exercise regularly or as told by your health care provider. Try to do 150 minutes of moderate exercise each week. ? Use the bathroom when you have the urge to go. Do not hold it in. ? Take nqlz-dva-mckxlmy and prescription medicines only as told by your health care provider. This includes any fiber supplements. ? During bowel movements: ? Practice deep breathing while relaxing the lower abdomen. ? Practice pelvic floor relaxation. ? Watch your condition for any changes. Let your health care provider know about them. ? Keep all follow-up visits as told by your health care provider. This is important. Contact a health care provider if: ? You have pain that gets worse. ? You have a fever. ? You do not have a bowel movement after 4 days. ? You vomit. ? You are not hungry or you lose weight. ? You are bleeding from the opening between the buttocks (anus). ? You have thin, pencil-like stools. Get help right away if: ? You have a fever and your symptoms suddenly get worse. ? You leak stool or have blood in your stool. ? Your abdomen is bloated. ? You have severe pain in your abdomen. ? You feel dizzy or you faint. Summary ? Constipation is when a person has fewer than three bowel movements in a week, has difficulty having a bowel movement, or has stools (feces) that are dry, hard, or larger than normal. ? Eat foods that have a lot of fiber, such as beans, whole grains, and fresh fruits and vegetables. ? Drink enough fluid to keep your urine pale yellow. ? Take awhh-yyj-qslnnrk and prescription medicines only as told by your health care provider. This includes any fiber supplements. This information is not intended to replace advice given to you by your health care provider. Make sure you discuss any questions you have with your health care provider. Document Revised: 06/05/2020 Document Reviewed: 06/05/2020 [employer] Patient Education ? 2022 [employer] Normal [facility] ED Patient Summaryon 023 ED Patient Summary [place] [id number] Patient Discharge Instructions Person Information Name: JOSIE TOMLIN Age: 32 Years Arrival Date: 07/07/2023 13:22:40 Discharge Diagnosis: Acute constipation Primary Care Physician: Jory Monet Provider Information Primary Provider: Rik Crespo DO Advanced Handkerchief Presser:None The exam and treatment you received in the Emergency Department were for an urgent problem and are not intended as complete care. It is important that you follow up with a doctor, nurse practitioner, or physician?s licensed loan officer assistant for ongoing care. If your symptoms become worse or you do not improve as expected and you are unable to reach your usual health care provider, you should return to the Emergency Department. We are available 24 hours a day. JOSIE TOMLIN has been given the following list of patient education materials, prescriptions and follow-up instructions: Follow-up Instructions: With: Address: When: [address], [place] [address] Business (1) In 3 days 07/10/2023 Comments: Call the office of your primary care doctor to arrange for follow-up within the above-stated timeframe. Follow-up with your primary care doctor about this ED visit. You should review your labs, imaging, and diagnoses from this ED visit with your primary care physician. There are occasionally non-emergent findings that require additional follow-up after your ED visit. If you were prescribed medications you should discuss possible side-effects and drug interactions with your pharmacist. Call 911 or go to the nearest Emergency Department if you develop any new or worsening symptoms. Seek immediate medical attention if you develop: worsening abdominal pain, new or worsening nausea, new or worsening vomiting, new or worsening diarrhea, chest pain, shortness of breath, pain with urination, problems urinating, fever, chills, weakness, or any new or worsening symptoms. Begin taking Colace stool softener. Buy one 250 g container of MiraLAX. Buy 2x 32oz ounce Gatorade's. Split the 250 g MiraLAX between the 2 Gatorade's. Drink 1 of those tonight. If no results drink the other 1 tomorrow. In the event that this physician does not participate in your insurance network, please consult with your insurance company to find a nearby participating provider. Patient Education Materials: Constipation, Adult A MESSAGE TO ALL PATIENTS REGARDING OPIOIDS PRESCRIPTION OPIOIDS: WHAT YOU NEED TO KNOW Prescription opioids can be used to help relieve hnnkudzi-mk-maontk pain and are often prescribed following a surgery or injury, or for certain health conditions. These medications can be an important part of the treatment but also come with serious risks. It is important to work with your healthcare provider to make sure you are getting the safest, most effective care. WHAT ARE THE RISKS AND SIDE EFFECTS OF OPIOID USE? Prescription opioids carry serious risks of addiction and overdose, especially with prolonged use. An opioid overdose, often marked by slowed breathing, can cause sudden . The use of prescription opioids can have a number of side effects as well, even when taken as directed: ? Tolerance?meaning you might need to take more of the medication for the same pain relief ? Physical dependence?meaning you have symptoms of withdrawal when a medication is stopped ? Increased sensitivity to pain ? Constipation ? Nausea, vomiting, and dry mouth ? Sleepiness and dizziness ? Confusion ? Depression ? Low levels of testosterone that can result in lower sex drive, energy, and strength ? Itching and sweating RISKS ARE GREATER WITH: ? History of drug misuse, substance use disorder, or overdose ? Mental health conditions (such as depression or anxiety) ? Sleep apnea ? Older age (65 years and older) ? Avoid alcohol while taking prescription opioids. Also, unless specifically advised by your health care provider, medications to avoid include: ? Benzodiazepines (such as Xanax or Valium) ? Muscle relaxants (such as Soma or Flexeril) ? Hypnotics (such as Ambien or Lunesta) ? Other prescription opioids KNOW YOUR OPTIONS Talk to your health care provider about ways to manage your pain that don?t involve prescription opioids. Some of these options may actually work better and have fewer risks and side effects. Options may include: ? Pain relievers such as acetaminophen, ibuprofen, and naproxen ? Some medication that are also used for depression or seizures ? Physical therapy and exercise ? Cognitive behavioral therapy, a psychological, goal-directed approach, in which patients learn how to modify physical, behavioral, and emotional triggers of pain and stress. IF YOU ARE PRESCRIBED OPIOIDS FOR PAIN: ? Never take op (more content not included)... Normal [facility] RAD - Consent to Procedureon 07-07-2023 RAD - Consent to Procedure [id number] 2#1.00TIFF Normal [facility] UA With Cult Reflexon 2022 Bacteria LM Ql (Urine sed) TRACE Normal Trace [facility] Comment on above: Performed By: #### 1 [id number] #### [facility] [address] [place] [address] Bilirubin Ql (U) Negative Normal Negative [facility] Comment on above: Performed By: #### 1 [id number] #### [facility] [address] [place] [address] Clarity (U) CLEAR Normal Clear [facility] Comment on above: Performed By: #### 1 [id number] #### [facility] [address] [place] [address] Color (U) YELLOW Normal Yellow [facility] Comment on above: Performed By: #### 1 [id number] #### [facility] [address] [place] [address] Epithelial cells.squamous LM.HPF (Urine sed) [#/Area] 0-2 Normal 0-2 [facility] Comment on above: Performed By: #### 1 [id number] #### [facility] [address] [place] [address] Glucose Test strip (U) [Mass/Vol] Negative Normal Negative [facility] Comment on above: Performed By: #### 1 [id number] #### [facility] [address] [place] [address] Hemoglobin Ql (U) Negative Normal Negative [facility] Comment on above: Performed By: #### 1 [id number] #### [facility] [address] [place] [address] Ketones (U) [Mass/Vol] 2+ Abnormal Negative [facility] Comment on above: Performed By: #### 1 [id number] #### [facility] [address] [place] [address] [place].plasma/Lithiu m.RBC (Bld) [Mass ratio] 0-3 Normal 0-3 [facility] Comment on above: Performed By: #### 1 [id number] #### [facility] [address] [place] [address] Mucus Ql (Urine sed) 1+ Normal [facility] Comment on above: Performed By: #### 1 [id number] #### [facility] [address] [place] [address] Nitrite Ql (U) Negative Normal Negative [facility] Comment on above: Performed By: #### 1 [id number] #### [facility] [address] [place] [address] pH (U) 5.5 [pH] Invalid Interpretation Code 5.0-9.0 [facility] Comment on above: Performed By: #### 1 [id number] #### [facility] [address] [place] [address] Protein (U) [Mass/Vol] Negative Normal Negative [facility] Comment on above: Performed By: #### 1 [id number] #### [facility] [address] [place] [address] Specific gravity (U) [Rel density] 1.025 Invalid Interpretation Code 1.005-1.030 [facility] Comment on above: Performed By: #### 1 [id number] #### [facility] [address] [place] [address] Type of Urine collection method Clean Catch Normal [facility] Comment on above: Performed By: #### 1 [id number] #### [facility] [address] [place] [address] Urobilinogen Qn (U) 0.2 {Imelda'U}/dL Normal 0.0-1.0 [facility] Comment on above: Performed By: #### 1 [id number] #### [facility] [address] [place] [address] WBC Auto Ql (U) TRACE Abnormal Negative [facility] Comment on above: Performed By: #### 1 [id number] #### [facility] [address] [place] [address] WBC LM.HPF (Urine sed) [#/Area] 0-5 Normal 0-5 [facility] Comment on above: Performed By: #### 1 [id number] #### [facility] [address] [place] [address] URINALYSISOrdered By: Jaymie Hernandez on 07-07-2023 Bacteria LM Ql (Urine sed) Trace /HPF Normal Trace/HPF [facility] UA Auto SS Bilirubin Ql (U) Negative (07/07/23 3:12 PM) Normal Negative [facility] UA Auto SS Clarity (U) Clear (07/07/23 3:12 PM) Normal Clear [facility] UA Auto SS Color (U) Yellow (07/07/23 3:12 PM) Normal Yellow [facility] UA Auto SS Epithelial cells.squamous LM.HPF (Urine sed) [#/Area] 0-2 /HPF Normal 0-2/HPF [facility] UA Aut o SS Glucose Test strip (U) [Mass/Vol] Negative (07/07/23 3:12 PM) Normal Negative [facility] UA Auto SS Hemoglobin Ql (U) Negative (07/07/23 3:12 PM) Normal Negative [facility] UA Auto SS Ketones (U) [Mass/Vol] 2+ *ABN* (07/07/23 3:12 PM) Invalid Interpretation Code Negative [facility] UA Auto SS [place].plasma/Lithiu m.RBC (Bld) [Mass ratio] 0-3 /HPF Normal 0-3/HPF [facility] UA Auto SS Mucus Ql (Urine sed) 1+ (07/07/23 3:12 PM) Normal [facility] UA Auto SS Nitrite Ql (U) Negative (07/07/23 3:12 PM) Normal Negative [facility] UA Auto SS pH (U) 5.5 *NA* (07/07/23 3:12 PM) Invalid Interpretation Code 5.0 - 9.0 [facility] UA Auto SS Protein (U) [Mass/Vol] Negative (07/07/23 3:12 PM) Normal Negative [facility] UA Auto SS Specific gravity (U) [Rel density] 1.025 *NA* (07/07/23 3:12 PM) Invalid Interpretation Code 1.005 - 1.030 [facility] UA Auto SS UA Spec Desc Clean Catch (07/07/23 3:12 PM) Normal [facility] UA Auto SS Urobilinogen Qn (U) 0.8986486 {Imelda'U}/dL Normal 0.0 - 1.0 EU/dL [facility] UA Auto SS WBC Auto Ql (U) Trace *ABN* (07/07/23 3:12 PM) Invalid Interpretation Code Negative [facility] UA Auto SS WBC LM.HPF (Urine sed) [#/Area] 0-5 /HPF Normal 0-5/HPF [facility] UA Auto SS XR Abdomen 1 Viewon 07-07-20 XR Abdomen 1 View Exam Date/Time: 07/07/2023 15:37 EST Reason for Exam: Constipation Report IMPRESSION: THERE ARE NO ACUTE CHANGES. CLINICAL HISTORY: Constipation COMPARISON: NONE. KUB FINDINGS: There are no distended loops of bowel. There is no evidence of obstruction. There are no acute osseous changes. Ordering Provider: Rik Crespo FINAL REPORT Dictated: 07/07/2023 3:45 pm Scotty Cristobal MD, V. Signed (Electronic Signature): 07/07/2023 3:45 pm Signed by: Scotty Cristobal MD, V. Transcribed by: KALI Technologist: MARILYN Technical Comments Radiation Dose: Ka,r in mGy = na DAP = na Normal [facility]CG Quanton 05-27-2023 HCG.beta subunit Qn 249 m[IU]/mL High 1-3 Fis [facility] Comment on above: Result Comment: GEST ATIONAL AGE HCG RANGE (mIU/mL) NON- <1-3 0.2-1 WEEKS 5-50 1-2 WEEKS 50-500 2-3 WEEKS 100-5,000 3-4 WEEKS 500-10,000 4-5 WEEKS 1,000-50,000 5-6 WEEKS 10,000-100,000 6-8 WEEKS 15,000-200,000 8-12 WEEKS 10,000-100,000 Performed By: #### 2 [id number] #### [facility] [address] [place] [id number] CHEMISTRYOrdered By: SYSTEM SYSTEM on 05-27-2023 HCG.beta subunit Qn 249 m[IU]/mL High 1 - 3 mIU/mL F [facility] Comment on above: Interpretive Data: G ESTATIONAL AGE HCG RANGE (mIU/mL) NON- <1-3 0.2-1 WEEKS 5-50 1-2 WEEKS 50-500 2-3 WEEKS 100-5,000 3-4 WEEKS 500-10,000 4-5 WEEKS 1,000-50,000 5-6 WEEKS 10,000-100,000 6-8 WEEKS 15,000-200,000 8-12 WEEKS 10,000-100,000 Consent for Treatmenton 10 Consent for Treatment [id number] #1.00TIFF Normal [facility] Physician Orderon 05-27-2023 Physician Order [id number] 4#1.00TIFF Normal [facility]CG [facility] 05-25-2023 HCG.beta subunit Qn 71 m[IU]/mL High 1-[address] [facility] Comment on above: Result Comment: GEST ATIONAL AGE HCG RANGE (mIU/mL) NON- <1-3 0.2-1 WEEKS 5-50 1-2 WEEKS 50-500 2-3 WEEKS 100-5,000 3-4 WEEKS 500-10,000 4-5 WEEKS 1,000-50,000 5-6 WEEKS 10,000-100,000 6-8 WEEKS 15,000-200,000 8-12 WEEKS 10,000-100,000 Performed By: #### 2 [id number] #### [facility] [address] [place] [address] CHEMISTRYOrdered By: SYSTEM SYSTEM on 05-25-2023 HCG.beta subunit Qn 71 m[IU]/mL High 1 - 3 [facility]IU[facility] Comment on above: Interpretive Data: G ESTATIONAL AGE HCG RANGE (mIU/mL) NON- <1-3 0.2-1 WEEKS 5-50 1-2 WEEKS 50-500 2-3 WEEKS 100-5,000 3-4 WEEKS 500-10,000 4-5 WEEKS 1,000-50,000 5-6 WEEKS 10,000-100,000 6-8 WEEKS 15,000-200,000 8-12 WEEKS 10,000-100,000 Consent for Treatmenton 05-03 Consent for Treatment [id number] #1.00TIFF [facility] Physician Orderon 05-25-2023 Physician Order [id number] 3#1.00TIFF [facility] Ambulatory Visit Summaryon 0 04-30-2023 Ambulatory Visit Summary JOSIE TOMLIN :1990 Visit Date:04/30/2023 Ambulatory Visit Instructions Your Diagnosis ADHD - Attention deficit disorder with hyperactivity High risk medication use Overweight BMI 29.0-29.9,adult Your Care Team Attending Physician - Jory Monet Primary Care Physician - Jory Monet This Is Your Medications List amphetamine-dextroam phetamine (Adderall XR 5 mg oral capsule, extended release) levocetirizine (Xyzal 5 mg oral tablet) multivitamin Procedures Performed Pap smear and HPV cotesting (12/2021), Colonoscopy (2009), Maxillary sinus endoscopy with removal of cyst. Discharge Vitals Temperature (Oral) 36.5 ?C Heart Rate (Peripheral) 82 Blood Pressure 118/62 Height 168 cm Height 66 in Weight 82.9 kg Weight 182.38 lb BMI 29.37 What to do next Scheduled Follow-Up Appointments Wednesday 7:00 AM EST With: Jory Monet Where: [facility] Primary Care Normal [facility] Office/Clini c Noteon 04-30-2023 Family Medicine Office/Clinic Note Chief Complaint pt here for 3 month f/u. HPI Staff Last routine labs: 07/24/22 smoker status: never Pap (21-64yo): utd flu vaccine status: due History of Present Illness Josie is a 32 yo female presenting today for f/u med recheck Pt informed me she recently had a miscarriage at 7 weeks gestational age. ADHD f/u: Symptoms are present in more than one setting and include: Trouble focusing: yes Inability to concentrate: yes Trouble completing tasks: yes Hyperactivity: yes Current medications: Adderall 5mg ER qd Symptoms are well-controlled on the current regimen There are no significant side effects such as: Palpitations, Chest pain, Decreased appetite, Weight loss, Insomnia, Anxiety/jitteriness Drug holidays are not taken. Improvements have been made in work, attentiveness, hyperactivity, impulsivity, school/work behavior, home behavior, and in organizational skills. OARRS Verification: OARRS report reviewed. No problems noted. Review of Systems PHQ Score Initial Depression Screen Score: 0 Physical Exam Vitals & Measurements T: 36.5 ?C(Oral) HR: 82(Peripheral) BP: 118/62 SpO2: 99% HT: 66 in HT: 168 cm WT: 82.9 kg WT: 182.38 lb BMI: 29.37 General: Well developed, well nourished, in no acute distress Eyes: Bilateral PERRLA, conjunctivae and sclerae wnl, EOMs intact, lids without stye, chalazion, ect/extropion, ptosis, xanthelasma, blepharitis. No discharge to inner canthi.Negative for corneal abrasion or foreign bodies. Ears: grossly normal hearing Nose: No deformity, discharge, inflammation, or lesions. No congestion, no erythema; pink & moist turbinates; clear rhinorrhea. Mouth: mucous membranes pink, moist and intact. [place] posterior oropharynx, no palatal inflammation, uvula midline, no cobble-stoning, no enlarged tonsils, no tonsillar exudate, no ulcers, no active post nasal drip. tongue midline and wnl. Good dentition. Neck: Neck supple. No lymphadenopathy. Trachea midline. No thyroid, masses, tenderness, or enlargement noted. No bruit. Lungs: Normal respiratory effort and clear to auscultation Cardio: Regular rate and rhythm, normal S1 and S2, no murmur, no rub Abdomen: not assessed Musculoskeletal: No deformity or scoliosis noted. No vertebral tenderness. Normal range of motion. No vertebral point tenderness. Joints normal. No erythema, edema, effusion, crepitus, or ecchymosis. Straight leg raise negative Extremity: No clubbing, cyanosis, edema, or deformity. Normal ROM with upper and lower extremities, bilaterally. Neurologic: Cranial nerves II-XII grossly intact. motor strength equal & normal bilaterally, sensation equal & normal bilaterally. Gait normal. Skin: No rashes, ulcerations, or suspicious lesions Mental Status: Alert and oriented x3. Normal mood and affect Assessment/Plan 1. ADHD - Attention deficit disorder with hyperactivity (F90.9: Attention-deficit hyperactivity disorder, unspecified type) Pt counseled at length that teratogenicity risk is unknown with the use of Adderall during . I encouraged the pt to stop the medication if trying to conceive - pt verbalized understanding. She will f/u with her OBGYN regarding trying to conceive and her medications. She has appt with Dr. Blair on 05/06/23. stable Patient to continue medications: Adderall XR 5mg qAM at this time (see note above) Discussed side effects of this medication including: dependency, abuse, increased BP, seizures, sexual dysfunction, growth suppression, aggressive behavior, withdrawal sx if abrupt D/C (prolonged high-dose use). Pt verbalized understanding. OARRS reviewed - Patient is approved at this time for Rx f/u 3 months, call for refills in between appts 2. High risk medication use (Z79.899: Other half-way (current) drug therapy) 04/30/2023 07:28:10 I certify that I have reviewed the OARRS report and all PDMP information in this chart. 3. Overweight (E66.3: Overweight) Reviewed importance of making a lifestyle change regarding dietary choices. Discussed goals. Encouraged routine cardio exercise with Goal: 3-5x/week for 30-45 minutes. Start out slow and increase to achieve your goals. Avoid late night snacking, do not skip breakfast and monitor cooking habits/avoid fast food and fried/fatty foods. Will monitor for progress. 4. BMI 29.0-29.9,adult (Z68.29: Body mass index [BMI] 29.0-29.9, adult) The standard range for ages 18 and older is >=18.5 and < 25 kg/m2. Your BMI today was above this range, this falls in the overweight to obese category and there are medical benefits to weight loss. We can offer counselling, referral, and/or medical support in addressing this problem. Your BMI and weight management will be followed at subsequent visits. Follow-up With When Contact Information Jory Monet In 3 months [address], [place] [address]- Additional Instructions: f/u ADHD, med recheck Patient Education BMI for Adults Attention Deficit Hyperactivity (more content not included)... Normal [facility] Comment on above: Result Comment: Elec tronically Signed By: Jory Monet\.br\Date and Time Signed: 04/30/23 07:32 EDT Patient Educationon 04-26-20 Patient Education Mental and Behavioral Health Attention Deficit Hyperactivity Disorder, Adult Attention deficit hyperactivity disorder (ADHD) is a mental health disorder that starts during childhood (neurodevelopmental disorder). For many people with ADHD, the disorder continues into the adult years. Treatment can help you manage your symptoms. What are the causes? The exact cause of ADHD is not known. Most experts believe genetics and environmental factors contribute to ADHD. What increases the risk? The following factors may make you more likely to develop this condition: ? Having a family history of ADHD. ? Being male. ? Being born to a mother who smoked or drank alcohol during . ? Being exposed to lead or other toxins in the womb or early in life. ? Being born before 37 weeks of (prematurely) or at a low weight. ? Having experienced a brain injury. What are the signs or symptoms? Symptoms of this condition depend on the type of ADHD. The two main types are inattentive and hyperactive-impulsiv e. Some people may have symptoms of both types. Symptoms of the inattentive type include: ? Difficulty paying attention. ? Making careless mistakes. ? Not following instructions. ? Being disorganized. ? Avoiding tasks that require time and attention. ? Losing and forgetting things. ? Being easily distracted. Symptoms of the hyperactive-impulsiv e type include: ? Restlessness. ? Talking too much. ? Interrupting. ? Difficulty with: ? Sitting still. ? Feeling motivated. ? Relaxing. ? Waiting in line or waiting for a turn. In adults, this condition may lead to certain problems, such as: ? Keeping jobs. ? Performing tasks at work. ? Having stable relationships. ? Being on time or keeping to a schedule. How is this diagnosed? This condition is diagnosed based on your current symptoms and your history of symptoms. The diagnosis can be made by a health care provider such as a primary care provider or a mental health rn transitional care. Your health care provider may use a symptom checklist or a behavior rating scale to evaluate your symptoms. He or she may also want to talk with people who have observed your behaviors throughout your life. How is this treated? This condition can be treated with medicines and behavior therapy. Medicines may be the best option to reduce impulsive behaviors and improve attention. Your health care provider may recommend: ? Stimulant medicines. These are the most common medicines used for adult ADHD. They affect certain chemicals in the brain (neurotransmitters) and improve your ability to control your symptoms. ? A non-stimulant medicine for adult ADHD (atomoxetine). This medicine increases a neurotransmitter called norepinephrine. It may take weeks to months to see effects from this medicine. Counseling and behavioral management are also important for treating ADHD. Counseling is often used along with medicine. Your health care provider may suggest: ? Cognitive behavioral therapy (CBT). This type of therapy teaches you to replace negative thoughts and actions with positive thoughts and actions. When used as part of ADHD treatment, this therapy may also include: ? Coping strategies for organization, time management, impulse control, and stress reduction. ? Mindfulness and meditation training. ? Behavioral management. You may work with a scrum coach who is specially trained to help people with ADHD manage and organize activities and function more effectively. Follow these instructions at home: Medicines ? Take ngis-cjt-xyrawls and prescription medicines only as told by your health care provider. ? Talk with your health care provider about the possible side effects of your medicines and how to manage them. Lifestyle ? Do not use drugs. ? Do not drink alcohol if: ? Your health care provider tells you not to drink. ? You are , may be , or are planning to become . ? If you drink alcohol: ? Limit how much you use to: ? 0?1 drink a day for women. ? 0?2 drinks a day for men. ? Be aware of how much alcohol is in your drink. In the [place] one drink equals one 12 oz bottle of beer (355 mL), one 5 oz glass of wine (148 mL), or one 1? oz glass of hard liquor (44 mL). ? Get enough sleep. ? Eat a healthy diet. ? Exercise regularly. Exercise can help to reduce stress and anxiety. General instructions ? Learn as much as you can about adult ADHD, and work closely with your health care providers to find the treatments that work best for you. ? Follow the same schedule each day. ? Use reminder devices like notes, calendars, and phone apps to stay on time and organized. ? Keep all follow-up visits as told by your health care provider and therapist. This is important. Where to find more information A health care provider may be able to recommend resources that are available online (more content not included)... [facility] HCG.beta subunit Qn 1 m[IU]/mL Normal 1-3 [facility] Comment on above: Result Comment: GEST ATIONAL AGE HCG RANGE (mIU/mL) NON- <1-3 0.2-1 WEEKS 5-50 1-2 WEEKS 50-500 2-3 WEEKS 100-5,000 3-4 WEEKS 500-10,000 4-5 WEEKS 1,000-50,000 5-6 WEEKS 10,000-100,000 6-8 WEEKS 15,000-200,000 8-12 WEEKS 10,000-100,000 Performed By: #### [id number] #### [facility] [address] [place] [address] CHEMISTRYOrdered By: SYSTEM SYSTEM on 04-09-2023 HCG.beta subunit Qn 1 m[IU]/mL Normal 1 - 3 mIU/mL FTM C Remisol Consent for Treatmenton Consent for Treatment [id number] #1.00CD:127 Normal [facility] Physician Orderon 04-09-2023 Physician Order [id number] #1.00CD:127 Normal [facility] BhCG Quanton 04-02-2023 HCG.beta subunit Qn 14 m[IU]/mL High 1-[address] [facility] Comment on above: Result Comment: GEST ATIONAL AGE HCG RANGE (mIU/mL) NON- <1-3 0.2-1 WEEKS 5-50 1-2 WEEKS 50-500 2-3 WEEKS 100-5,000 3-4 WEEKS 500-10,000 4-5 WEEKS 1,000-50,000 5-6 WEEKS 10,000-100,000 6-8 WEEKS 15,000-200,000 8-12 WEEKS 10,000-100,000 Performed By: #### 2 [id number] #### [facility] [address] [place] [address] CHEMISTRYOrdered By: SYSTEM SYSTEM on 04-02-2023 HCG.beta subunit Qn 14 m[IU]/mL High 1 - 3 mIU/mL FT [facility] Remisol Consent for Treatmenton Consent for Treatment [id number] #1.00CD:127 Normal [facility] Physician Orderon 04-02-2023 Physician Order [id number]#1.00CD:127 Normal [facility] Reportson 01-22-2023 Lab Reports [id number]# 1.00CD:127 Normal [facility] Medicine Office/Clini c Noteon 01-19-2023 Family Medicine Office/Clinic Note Chief Complaint pt here for medication refills. History of Present Illness Pt is 32 yo female presenting today for medication recheck. ADHD f/u: Current medications: Adderall XR 5mg qAM Symptoms are well-controlled on the current regimen but pt reports ongoing issues with memory and reports the medication is not perfect but she deals with it There are no significant side effects such as: Palpitations, Chest pain, Decreased appetite, Weight loss, Insomnia, Anxiety/jitteriness Drug holidays are not taken. Improvements have been made in work, attentiveness, hyperactivity, impulsivity, school/work behavior, home behavior, and in organizational skills. A refill is needed today Health Maintenance: Routine labs: 07/24/23, due now Pap (21-64yo): 2020 colonoscopy/cologuar d (45-75yo): not due yet Mammogram (qyr 45-54, q2yrs 55-85): not due yet non-smoker Specialists: none Review of Systems PHQ Score Initial Depression Screen Score: 0 Physical Exam Vitals & Measurements HR: 91(Peripheral) BP: 124/62 SpO2: 99% HT: 66 in HT: 168 cm WT: 81.1 kg WT: 178.42 lb BMI: 28.73 General: Well developed, well nourished, in no acute distress Eyes: Pupils equal, round, and reactive to light. Conjunctivae and sclerae normal, and extraocular movements intact Ears: TM normal, grossly normal hearing Nose: No deformity, discharge, inflammation, or lesions Mouth: MMM. Oropharynx and posterior pharynx without lesions or exudates. Tongue WNL Neck: Neck supple. No lymphadenopathy. Trachea midline. No thyroid, masses, tenderness, or enlargement noted. No bruit. Lungs: Normal respiratory effort and clear to auscultation Cardio: Regular rate and rhythm, normal S1 and S2, no murmur, no rub Abdomen: not assessed Musculoskeletal: No deformity or scoliosis noted. Normal range of motion. Joints normal. No erythema, edema, effusion, or ecchymosis Extremity: No clubbing, cyanosis or edema. Neurologic: Grossly normal Skin: No rashes, ulcerations, or suspicious lesions Mental Status: Alert and oriented x3. Normal mood and affect Assessment/Plan 1. ADHD - Attention deficit disorder with hyperactivity (F90.9: Attention-deficit hyperactivity disorder, unspecified type) stable Patient to continue medications: Adderall XR 5mg qAM Genesight swab completed at appt today - will call with results and make medication changes accordingly. Discussed side effects of this medication including: dependency, abuse, increased BP, seizures, sexual dysfunction, growth suppression, aggressive behavior, withdrawal sx if abrupt D/C (prolonged high-dose use). Pt verbalized understanding. OARRS reviewed - Patient is approved at this time for Rx f/u 3 months, call for refills in between appts Ordered: amphetamine-dextroam phetamine, 5 mg, 1 cap(s), Oral, qAM for 30 day(s), 30 cap(s), Refill(s) 0 2. High risk medication use (Z79.899: Other half-way (current) drug therapy) 01/19/2023 08:20:29 I certify that I have reviewed the OARRS report and all PDMP information in this chart. Last fill was 12/27/22. see #1 3. Routine adult health maintenance (Z00.00: Encounter for general adult medical examination without abnormal findings) counseled pt on diet/exercise and staying UTD on routine screenings and vaccines - pt verbalized understanding complete routine labs prior to f/u appt Ordered: CBC w/ Auto Diff Comprehensive Metabolic Panel Lipid Panel TSH With T4fr Reflex 4. BMI 28.0-28.9,adult (Z68.28: Body mass index [BMI] 28.0-28.9, adult) The standard range for ages 18 and older is >=18.5 and < 25 kg/m2. Your BMI today was above this range, this falls in the overweight to obese category and there are medical benefits to weight loss. We can offer counselling, referral, and/or medical support in addressing this problem. Your BMI and weight management will be followed at subsequent visits. 5. Overweight (E66.3: Overweight) Reviewed importance of making a lifestyle change regarding dietary choices. Discussed goals. Encouraged routine cardio exercise with Goal: 3-5x/week for 30-45 minutes. Start out slow and increase to achieve your goals. Avoid late night snacking, do not skip breakfast and monitor cooking habits/avoid fast food and fried/fatty foods. Will monitor for progress. Follow-up With When Contact Information Jory Monet In 3 months [address], [place] [address]- Additional Instructions: f/u ADHD Patient Education Health Maintenance, Female Exercising to Lose Weight Calorie Counting for Weight Loss BMI for Adults Attention Deficit Hyperactivity Disorder, Adult Problem List/Past Medical History Ongoing ADHD - Attention deficit disorder with hyperactivity BMI 28.0-28.9,adult High risk medication use Overweight Routine adult health maintenance Seasonal allergic rhinitis Historical No qualifying data Procedure/Surgical History Pap smear and HPV cotesting (01/01 (more content not included)... Normal [facility] Comment on above: Result Comment: Elec tronically Signed By: Jory Monet\.br\Date and Time Signed: 01/19/23 08:23 EDT Patient Educationon 01-20-20 Patient Education Mental and Behavioral Health Attention Deficit Hyperactivity Disorder, Adult Attention deficit hyperactivity disorder (ADHD) is a mental health disorder that starts during childhood (neurodevelopmental disorder). For many people with ADHD, the disorder continues into the adult years. Treatment can help you manage your symptoms. What are the causes? The exact cause of ADHD is not known. Most experts believe genetics and environmental factors contribute to ADHD. What increases the risk? The following factors may make you more likely to develop this condition: ? Having a family history of ADHD. ? Being male. ? Being born to a mother who smoked or drank alcohol during . ? Being exposed to lead or other toxins in the womb or early in life. ? Being born before 37 weeks of (prematurely) or at a low weight. ? Having experienced a brain injury. What are the signs or symptoms? Symptoms of this condition depend on the type of ADHD. The two main types are inattentive and hyperactive-impulsiv e. Some people may have symptoms of both types. Symptoms of the inattentive type include: ? Difficulty paying attention. ? Making careless mistakes. ? Not following instructions. ? Being disorganized. ? Avoiding tasks that require time and attention. ? Losing and forgetting things. ? Being easily distracted. Symptoms of the hyperactive-impulsiv e type include: ? Restlessness. ? Talking too much. ? Interrupting. ? Difficulty with: ? Sitting still. ? Feeling motivated. ? Relaxing. ? Waiting in line or waiting for a turn. In adults, this condition may lead to certain problems, such as: ? Keeping jobs. ? Performing tasks at work. ? Having stable relationships. ? Being on time or keeping to a schedule. How is this diagnosed? This condition is diagnosed based on your current symptoms and your history of symptoms. The diagnosis can be made by a health care provider such as a primary care provider or a mental health rn transitional care. Your health care provider may use a symptom checklist or a behavior rating scale to evaluate your symptoms. He or she may also want to talk with people who have observed your behaviors throughout your life. How is this treated? This condition can be treated with medicines and behavior therapy. Medicines may be the best option to reduce impulsive behaviors and improve attention. Your health care provider may recommend: ? Stimulant medicines. These are the most common medicines used for adult ADHD. They affect certain chemicals in the brain (neurotransmitters) and improve your ability to control your symptoms. ? A non-stimulant medicine for adult ADHD (atomoxetine). This medicine increases a neurotransmitter called norepinephrine. It may take weeks to months to see effects from this medicine. Counseling and behavioral management are also important for treating ADHD. Counseling is often used along with medicine. Your health care provider may suggest: ? Cognitive behavioral therapy (CBT). This type of therapy teaches you to replace negative thoughts and actions with positive thoughts and actions. When used as part of ADHD treatment, this therapy may also include: ? Coping strategies for organization, time management, impulse control, and stress reduction. ? Mindfulness and meditation training. ? Behavioral management. You may work with a scrum coach who is specially trained to help people with ADHD manage and organize activities and function more effectively. Follow these instructions at home: Medicines ? Take vaar-kbs-lakkpcm and prescription medicines only as told by your health care provider. ? Talk with your health care provider about the possible side effects of your medicines and how to manage them. Lifestyle ? Do not use drugs. ? Do not drink alcohol if: ? Your health care provider tells you not to drink. ? You are , may be , or are planning to become . ? If you drink alcohol: ? Limit how much you use to: ? 0?1 drink a day for women. ? 0?2 drinks a day for men. ? Be aware of how much alcohol is in your drink. In the [place] one drink equals one 12 oz bottle of beer (355 mL), one 5 oz glass of wine (148 mL), or one 1? oz glass of hard liquor (44 mL). ? Get enough sleep. ? Eat a healthy diet. ? Exercise regularly. Exercise can help to reduce stress and anxiety. General instructions ? Learn as much as you can about adult ADHD, and work closely with your health care providers to find the treatments that work best for you. ? Follow the same schedule each day. ? Use reminder devices like notes, calendars, and phone apps to stay on time and organized. ? Keep all follow-up visits as told by your health care provider and therapist. This is important. Where to find more information A health care provider may be able to recommend resources that are available online (more content not included)... Normal [facility] 12-08-2022 Consent [id number] #1.00CD:127 Normal [facility] Nurse Consultation Noteon Nurse Consultation Note Reason for Visit Kenalog Injection Medications Adderall XR 5 mg oral capsule, extended release, 5 mg= 1 cap(s), Oral, qAM multivitamin Xyzal 5 mg oral tablet Allergies Strattera (Drug-induced acute pancreatitis) Immunizations Vaccine Date Status Comments influenza virus vaccine, inactivated 06/17/2022 Recorded SARS-CoV-2 (COVID-19) mRNA BNT-162b2 vax 07/27/2021 Recorded influenza virus vaccine, inactivated 05/15/2021 Recorded SARS-CoV-2 (COVID-19) mRNA BNT-162b2 vax 11/15/2020 Given Prophylaxis SARS-CoV-2 (COVID-19) mRNA BNT-162b2 vax 10/18/2020 Given Prophylaxis influenza virus vaccine, inactivated 05/13/2020 Recorded influenza virus vaccine, inactivated 05/19/2019 Recorded influenza virus vaccine, inactivated 04/28/2018 Recorded influenza virus vaccine, inactivated 05/13/2016 Recorded diphtheria/pertussis , acel/tetanus adult 11/21/2015 Recorded measles/mumps/rubell a virus vaccine 11/21/2015 Recorded influenza virus vaccine, inactivated 06/15/2015 Recorded influenza virus vaccine, inactivated 05/12/2013 Recorded influenza virus vaccine, inactivated 07/05/2012 Recorded typhoid vaccine, inactivated 12/04/2011 Recorded influenza virus vaccine, inactivated 06/21/2007 Recorded varicella virus vaccine 11/24/2006 Recorded human papillomavirus vaccine 11/24/2006 Recorded diphtheria/pertussis , acel/tetanus adult 03/31/2006 Recorded influenza, whole 04/25/2003 Recorded influenza, whole 05/09/2002 Recorded measles/mumps/rubell a virus vaccine 02/14/1998 Recorded DTaP, unspecified formulation 02/14/1998 Recorded varicella virus vaccine 02/18/1995 Recorded DTaP, unspecified formulation 08/21/1994 Recorded measles/mumps/rubell a virus vaccine 04/27/1994 Recorded haemophilus b conjugate (PRP-T) vaccine 04/27/1994 Recorded hepatitis B pediatric vaccine 10/01/1993 Recorded Hib, unspecified formulation 06/30/1993 Recorded DTaP, unspecified formulation 06/30/1993 Recorded Hib, unspecified formulation 04/21/1993 Recorded DTaP, unspecified formulation 04/21/1993 Recorded hepatitis B pediatric vaccine 02/17/1993 Recorded Hib, unspecified formulation 02/17/1993 Recorded DTaP, unspecified formulation 02/17/1993 Recorded hepatitis B pediatric vaccine 01/20/1993 Recorded [facility] Formson 09-24-2022 Forms [id number] #1.00CD:127 [facility] Medication [facility] 023 Medication Consent [id number] #1.00CD:127 [facility] Ambulatory Visit Summaryon 09-23-2022 Ambulatory Visit Summary JOSIE TOMLIN :1990 Visit Date:09/23/2022 Ambulatory Visit Instructions Your Diagnosis ADHD - Attention deficit disorder with hyperactivity BMI 27.0-27.9,adult Other obesity Your Care Team Attending Physician - Espinoza HARDEN, Jory Owusu Primary Care Physician - Ted THAKKAR, Elina Rhodes This Is Your Medications List amphetamine-dextroam phetamine (Adderall XR 5 mg oral capsule, extended release) levocetirizine (Xyzal 5 mg oral tablet) multivitamin [Image Removed: STOP]Stop taking these medications azithromycin (Zithromax TRI-JOHN 500 mg oral tablet) cetirizine (cetirizine 10 mg Tab) etonogestrel (Implanon) ondansetron (Zofran ODT 4 mg Tab-Dis) Procedures Performed Pap smear and HPV cotesting (12/2021), Colonoscopy (2009), Maxillary sinus endoscopy with removal of cyst. Discharge Vitals Heart Rate (Peripheral) 96 Respiratory Rate 18 Blood Pressure 118/78 Height 168 cm Height 66 in Weight 78.3 kg Weight 172.26 lb BMI 27.74 What to do next You Need to Schedule the Following Appointments Follow Up with Espinoza HARDEN, Jory Owusu When: In 3 months Comments: f/u ADHD Where: [address], [facility] [place] [address]- Medications What How Much When Why Instructions Changed amphetamine-dextroam phetamine (Adderall XR 5 mg oral capsule, extended release) 1 Capsules By Mouth Once a day (in the morning) ADHD - Attention deficit disorder with hyperactivity Duration: 30 Days call for refills Printed Prescription Unchanged levocetirizine (Xyzal 5 mg oral tablet) Unchanged multivitamin What How Much When Comments Stop Taking azithromycin (Zithromax TRI-JOHN 500 mg oral tablet) 1 Tablets By Mouth Every day Stop Taking cetirizine (cetirizine 10 mg Tab) 1 Tablets By Mouth Every day Stop Taking etonogestrel (Implanon) Implant Once Stop Taking ondansetron (Zofran ODT 4 mg Tab-Dis) 1 Tablets By Mouth Every 8 hours Allergies Strattera (Drug-induced acute pancreatitis) Problems Ongoing - Any problem that you are currently receiving treatment for. ADHD - Attention deficit disorder with hyperactivity Historical - Any problem that you are no longer receiving treatment for. Depression Pancreatitis Education Materials BMI for Adults Body mass index (BMI) is a number that is calculated from a person's weight and height. BMI may help to estimate how much of a person's weight is composed of fat. BMI can help identify those who may be at higher risk for certain medical problems. How is BMI used with adults? BMI is used as a screening tool to identify possible weight problems. It is used to check whether a person is obese, overweight, healthy weight, or underweight. How is BMI calculated? BMI measures your weight and compares it to your height. This can be done either in [place] ([place] or metric measurements. Note that charts are available to help you find your BMI quickly and easily without having to do these calculations yourself. To calculate your BMI in [place] measurements, your health care provider will: 1. Measure your weight in pounds (lb). 2. Multiply the number of pounds by 703. ? For example, for a person who weighs 180 lb, multiply that number by 703, which equals 126,540. 3. Measure your height in inches (in). Then multiply that number by itself to get a measurement called inches squared. ? For example, for a person who is 70 in tall, the inches squared measurement is 70 in x 70 in, which equals 4900 inches squared. 4. Divide the total from Step 2 (number of lb x 703) by the total from Step 3 (inches squared): 126,540 ? 4900 = 25.8. This is your BMI. To calculate your BMI in metric measurements, your health care provider will: 1. Measure your weight in kilograms (kg). 2. Measure your height in meters (m). Then multiply that number by itself to get a measurement called meters squared. ? For example, for a person who is 1.75 m tall, the meters squared measurement is 1.75 m x 1.75 m, which is equal to 3.1 meters squared. 3. Divide the number of kilograms (your weight) by the meters squared number. In this example: 70 ? 3.1 = 22.6. This is your BMI. How is BMI interpreted? To interpret your results, your health care provider will use BMI charts to identify whether you are underweight, normal weight, overweight, or obese. The following guidelines will be used: ? Underweight: BMI less than 18.5. ? Normal weight: BMI between 18.5 and 24.9. ? Overweight: BMI between 25 and 29.9. ? Obese: BMI of 30 and above. Please note: ? Weight includes both fat and muscle, so someone with a muscular build, such as an athlete, may have a BMI that is higher than 24.9. In cases like these, BMI is not an accurate measure of body fat. ? To determine if excess body fat is the cause of a BMI of 25 or higher, further assessments may need to be don (more content not included)... Normal [facility]/Afshin Finnon 09-23-2022 Family Medicine Office/Clinic Note Chief Complaint Establish --- Takes adderall and it was time for an appointment History of Present Illness Pt is a 31 yo female presenting today to [facility]. Pt was previously a patient at [facility] primary care and [facility]. Medical hx includes the following: Pt has hx of ADHD, she is currently taking Adderall 10mg XR currently. Pt reports good control Pt denies medication side effects Appetite is appropriate Sleep is normal, no difficulty falling asleep. Improvements have been made in work, have been made in attentiveness, have been made in hyperactivity, have been made in impulsivity, have been made in work behavior, have been made in home behavior, and have been made in organizational skills. Pt is interested in cutting back dose to 5mg XR in the morning as a trial. OARRS Verification: OARRS report reviewed. Last fill was 08/29/22. No problems noted. 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 no recent vision changes reported Dentist: yes, has routine exams/cleanings Specialists: none Pap: 2021 at [facility] colonoscopy: 2009 at [facility] routine labs done at [facility] within the last year Review of Systems PHQ Score Initial Depression Screen Score: 0 Physical Exam Vitals & Measurements HR: 96(Peripheral) RR: 18 BP: 118/78 SpO2: 98% HT: 66 in HT: 168 cm WT: 78.3 kg WT: 172.26 lb BMI: 27.74 General: Well developed, well nourished, in no acute distress Eyes: Pupils equal, round, and reactive to light. Conjunctivae and sclerae normal, and extraocular movements intact Ears: TM clear, grossly normal hearing Nose: No deformity, discharge, inflammation, or lesions Mouth: MMM. Oropharynx and posterior pharynx without lesions or exudates. Tongue WNL Neck: Neck supple. No lymphadenopathy. Trachea midline. No thyroid, masses, tenderness, or enlargement noted. No bruit. Lungs: Normal respiratory effort and clear to auscultation Cardio: Regular rate and rhythm, normal S1 and S2, no murmur, no rub Abdomen: not assessed Musculoskeletal: No deformity or scoliosis noted. Normal range of motion. Joints normal. No erythema, edema, effusion, or ecchymosis Extremity: No clubbing, cyanosis or edema. Neurologic: Grossly normal Skin: No rashes, ulcerations, or suspicious lesions Mental Status: Alert and oriented x3. Normal mood and affect Assessment/Plan 1. ADHD - Attention deficit disorder with hyperactivity (F90.9: Attention-deficit hyperactivity disorder, unspecified type) chronic controlled 09/23/2022 16:37:56 I certify that I have reviewed the OARRS report and all PDMP information in this chart. Filled out paper Rx for Adderall XR 5mg once in the AM #30. Pt to trial lower dose and reassess in 1 mo. Last fill was 08/29/22. Medication agreement signed at appt today. Discussed medication side effects Pt verbalized understanding. f/u q3mo call for monthly refills Ordered: amphetamine-dextroam phetamine, 5 mg, 1 cap(s), Oral, qAM for 30 day(s), 30 cap(s), Refill(s) 0, call for refills 2. BMI 27.0-27.9,adult (Z68.27: Body mass index [BMI] 27.0-27.9, adult) The standard range for ages 18 and older is >=18.5 and < 25 kg/m2. Your BMI today was above this range, this falls in the overweight to obese category and there are medical benefits to weight loss. We can offer counselling, referral, and/or medical support in addressing this problem. Your BMI and weight management will be followed at subsequent visits. 3. Other obesity (E66.8: Other obesity) Reviewed importance of making a lifestyle change regarding dietary choices. Discussed goals. Encouraged routine cardio exercise with Goal: 3-5x/week for 30-45 minutes. Start out slow and increase to achieve your goals. Avoid late night snacking, do not skip breakfast and monitor cooking habits/avoid fast food and fried/fatty foods. Will monitor for progress. Follow-up With When Contact Information Jory Monet In 3 months [address] [facility] [address], [place] [address]- Additional Instructions: f/u ADHD Patient Education BMI for Adults Attention Deficit Hyperactivity Disorder, Adult Problem List/Past Medical History Ongoing ADHD - Attention deficit disorder with hyperactivity Seasonal allergic rhinitis Historical Depression Pancreatitis Procedure/Surgical History Pap smear and HPV cotesting (12/2021), Colonoscopy (2009), Maxillary sinus endoscopy with removal of cyst. Medications Adderall XR 5 mg oral capsule, extended release, 5 mg= 1 cap(s), Oral, qAM multivitamin Xyzal 5 mg oral tablet Allergies Strattera (Drug-induced acute pancreatitis) Social History Alcohol - Denies Alcohol Use, 05/25/2010 Current, Beer, 1-2 times per week, 03/02/2017 Substance Abuse - Denies Substance Abuse, 05/25/2010 Tobacco - Denies Tobacco Use, 05/25/2010 Never (less than 100 in lifetime) Tobacco Use:. Ne (more content not included)... Normal [facility] Comment on above: Result Comment: Elec tronically Signed By: Jory Monet\.br\Date and Time Signed: 09/23/22 17:03 EST Patient Educationon 09-23-19 23 Patient Education Mental and Behavioral Health Attention Deficit Hyperactivity Disorder, Adult Attention deficit hyperactivity disorder (ADHD) is a mental health disorder that starts during childhood (neurodevelopmental disorder). For many people with ADHD, the disorder continues into the adult years. Treatment can help you manage your symptoms. What are the causes? The exact cause of ADHD is not known. Most experts believe genetics and environmental factors contribute to ADHD. What increases the risk? The following factors may make you more likely to develop this condition: ? Having a family history of ADHD. ? Being male. ? Being born to a mother who smoked or drank alcohol during . ? Being exposed to lead or other toxins in the womb or early in life. ? Being born before 37 weeks of (prematurely) or at a low weight. ? Having experienced a brain injury. What are the signs or symptoms? Symptoms of this condition depend on the type of ADHD. The two main types are inattentive and hyperactive-impulsiv e. Some people may have symptoms of both types. Symptoms of the inattentive type include: ? Difficulty paying attention. ? Making careless mistakes. ? Not following instructions. ? Being disorganized. ? Avoiding tasks that require time and attention. ? Losing and forgetting things. ? Being easily distracted. Symptoms of the hyperactive-impulsiv e type include: ? Restlessness. ? Talking too much. ? Interrupting. ? Difficulty with: ? Sitting still. ? Feeling motivated. ? Relaxing. ? Waiting in line or waiting for a turn. In adults, this condition may lead to certain problems, such as: ? Keeping jobs. ? Performing tasks at work. ? Having stable relationships. ? Being on time or keeping to a schedule. How is this diagnosed? This condition is diagnosed based on your current symptoms and your history of symptoms. The diagnosis can be made by a health care provider such as a primary care provider or a mental health rn transitional care. Your health care provider may use a symptom checklist or a behavior rating scale to evaluate your symptoms. He or she may also want to talk with people who have observed your behaviors throughout your life. How is this treated? This condition can be treated with medicines and behavior therapy. Medicines may be the best option to reduce impulsive behaviors and improve attention. Your health care provider may recommend: ? Stimulant medicines. These are the most common medicines used for adult ADHD. They affect certain chemicals in the brain (neurotransmitters) and improve your ability to control your symptoms. ? A non-stimulant medicine for adult ADHD (atomoxetine). This medicine increases a neurotransmitter called norepinephrine. It may take weeks to months to see effects from this medicine. Counseling and behavioral management are also important for treating ADHD. Counseling is often used along with medicine. Your health care provider may suggest: ? Cognitive behavioral therapy (CBT). This type of therapy teaches you to replace negative thoughts and actions with positive thoughts and actions. When used as part of ADHD treatment, this therapy may also include: ? Coping strategies for organization, time management, impulse control, and stress reduction. ? Mindfulness and meditation training. ? Behavioral management. You may work with a scrum coach who is specially trained to help people with ADHD manage and organize activities and function more effectively. Follow these instructions at home: Medicines ? Take eyiw-oqo-tuhkksl and prescription medicines only as told by your health care provider. ? Talk with your health care provider about the possible side effects of your medicines and how to manage them. Lifestyle ? Do not use drugs. ? Do not drink alcohol if: ? Your health care provider tells you not to drink. ? You are , may be , or are planning to become . ? If you drink alcohol: ? Limit how much you use to: ? 0?1 drink a day for women. ? 0?2 drinks a day for men. ? Be aware of how much alcohol is in your drink. In the [place] one drink equals one 12 oz bottle of beer (355 mL), one 5 oz glass of wine (148 mL), or one 1? oz glass of hard liquor (44 mL). ? Get enough sleep. ? Eat a healthy diet. ? Exercise regularly. Exercise can help to reduce stress and anxiety. General instructions ? Learn as much as you can about adult ADHD, and work closely with your health care providers to find the treatments that work best for you. ? Follow the same schedule each day. ? Use reminder devices like notes, calendars, and phone apps to stay on time and organized. ? Keep all follow-up visits as told by your health care provider and therapist. This is important. Where to find more information A health care provider may be able to recommend resources that are available online (more content not included)... Normal [facility] CHEMISTRYOrdered By: SYSTEM SYSTEM on 07-24-2022 Albumin [Mass/Vol] 4.4 g/dL Normal 3.3 - 5.0 gm/dL [facility] Albumin/Globulin [Mass ratio] 1.3 {ratio} Normal 1.1 - 2.2 [facility] ALP [Catalytic activity/Vol] 51 [iU]/d Normal 21 - 98 Int._Unit/L [facility] ALT No additional P-5'-P [Catalytic activity/Vol] 24 [iU]/d Normal 6 - 46 Int._Unit/L [facility] Anion gap [Moles/Vol] 13 mmol/L Normal 6 - 16 mEq/L [facility] Rem[facility] AST [Catalytic activity/Vol] 22 [iU]/d Normal 5 - 43 Int._Unit/L [facility] Bilirubin [Mass/Vol] 3.1 mg/dL High 0.0 - 1 .1 mg/dL [facility] Bilirubin.direct [Mass/Vol] 0.3 mg/dL Normal 0.1 - 0.4 mg/dL [facility] Bilirubin.indirect [Mass or moles/Vol] 2.8 mg/dL High 0.1 - 0.9 mg/dL [facility] Calcium [Mass/Vol] 8.6 mg/dL Low 8.9 - 11. 1 mg/dL [facility] Chloride [Moles/Vol] 101 mmol/L Normal 101 - 1 11 mmol/L [facility] CO2 [Moles/Vol] 22 mmol/L Normal 21 - 31 mmol/L [facility] Creatinine [Mass/Vol] 0.6 mg/dL Normal 0.5 - 1.3 mg/dL [facility] GFR/1.73 sq M.predicted among blacks MDRD (S/P/Bld) [Vol rate/Area] mL/min/1.73 m2 Normal >=59mL/min/1. 73 m2 [facility] S GFR/1.73 sq M.predicted among non-blacks MDRD (S/P/Bld) [Vol rate/Area] mL/min/1.73 m2 Normal >=59mL/min/1. 73 m2 [facility] S Globulin (S) [Mass/Vol] 3.4 g/dL Normal 1.4 - 4.0 gm/dL [facility] Glucose [Mass/Vol] 105 mg/dL Normal 55 - 199 mg/dL [facility] Lipase [Catalytic activity/Vol] 28 U/L Normal 13 - 58 unit/L [facility] Potassium [Moles/Vol] 3.5 mmol/L Normal 3.5 - 5.3 mmol/L [facility] Protein [Mass/Vol] 7.8 g/dL Normal 6.0 - 7.8 gm/dL [facility] Sodium [Moles/Vol] 132 mmol/L Low 135 - 145 mmol/L [facility] Urea nitrogen [Mass/Vol] 15 mg/dL Normal 5 - 21 mg/dL [facility] Urea nitrogen/Creatinine [Mass ratio] 25 mg/mg High 10 - 20 [facility] HEMATOLOGYOrdered By: SYSTEM SYSTEM on 07-24-2022 Basophils/100 WBC (Bld) 0.2 % Normal 0.0 - 2.0 % [facility]eAutoSS Basophils/Leukocytes Auto (Bld) [Pure # fraction] 0.0 E9/L Normal 0.0 - 0.2 E9/L [facility] Eosinophils/100 WBC (Bld) 1.4 % Normal 0.0 - 8.0 % [facility] Eosinophils/Leukocyte s Auto (Bld) [Pure # fraction] 0.1 E9/L Normal 0.0 - 0.5 E9/L [facility] Lymphocytes/100 WBC (Bld) 10.7 % Low 14.0 - 50.0 % [facility] Lymphocytes/Leukocyte s Auto (Bld) [Pure # fraction] 1.2 E9/L Normal 1.0 - 4.0 E9/L [facility] Monocytes/100 WBC (Bld) 4.8 % Normal 4.0 - 14.0 % [facility]eAuto[facility] Monocytes/Leukocytes Auto (Bld) [Pure # fraction] 0.5 E9/L Normal 0.2 - 1.0 E9/L [facility] Neutrophils/100 WBC (Bld) 82.9 % High 36.0 - 75.0 % [facility] Neutrophils/Leukocyte s Auto (Bld) [Pure # fraction] 9.0 E9/L High 2.0 - 7.5 E9/L [facility] HEMATOLOGYOrdered By: Alliso n Shayy on 07-24-2022 Erythrocyte distribution width (RBC) [Ratio] 13.6 % Normal 10.9 - 14.2 % [facility] Hematocrit (Bld) [Volume fraction] 43.2 % Normal 34.0 - 46.0 % [facility] Hemoglobin (Bld) [Mass/Vol] 14.6 g/dL Normal 12.0 - 16.0 gm/dL [facility] MCH (RBC) [Entitic mass] 27.9 pg Normal 27.0 - 34.0 pg [facility] MCHC (RBC) [Mass/Vol] 33.7 g/dL Normal 31.4 - 36.0 gm/dL [facility] MCV (RBC) [Entitic vol] 82.8 fL Normal 80.0 - 100.0 fL [facility] Platelet mean volume (Bld) [Entitic vol] 7.4 fL Normal 6.4 - 10.8 fL [facility] Platelets (Bld) [#/Vol] 306.0 E9/L Normal 150.0 - 500.0 E9/L [facility] RBC (Bld) [#/Vol] 5.2 E12/L Normal 4.3 - 5.9 E12/L [facility] WBC corrected for nucl RBC Auto (Bld) [#/Vol] 10.8 E9/L Normal 4.0 - 11.0 E9/L [facility] SEROLOGYOrdered By: Anay Verdugo on 07-24-2022 Beta hCG Ql Negative (07/24/22 8:51 PM) Normal [facility] URINALYSISOrdered By: Los Verdugo on 07-24-2022 Bacteria LM Ql (Urine sed) 1+ /HPF Invalid Interpretation Code Trace/HPF [facility] UA Auto SS Bilirubin Ql (U) Negative (07/24/22 8:52 PM) Normal Negative [facility]A Auto SS Clarity (U) Clear (07/24/22 8:52 PM) Normal Clear [facility] Auto SS Color (U) Yellow (07/24/22 8:52 PM) Normal Yellow [facility]A Auto SS Epithelial cells.squamous LM.HPF (Urine sed) [#/Area] 5-8 /HPF Normal 0-2/HPF [facility] UA Aut o SS Glucose Test strip (U) [Mass/Vol] Negative (07/24/22 8:52 PM) Normal Negative [facility]A Auto SS Hemoglobin Ql (U) Negative (07/24/22 8:52 PM) Normal Negative [facility]A Auto SS Ketones (U) [Mass/Vol] Trace *NA* (07/24/22 8:52 PM) Invalid Interpretation Code Negative [facility] UA Auto SS [place].plasma/Lithiu m.RBC (Bld) [Mass ratio] 0-3 /HPF Normal 0-3/HPF [facility] UA Auto SS Mucus Ql (Urine sed) Trace (07/24/22 8:52 PM) Normal [facility] Auto SS Nitrite Ql (U) Negative (07/24/22 8:52 PM) Normal Negative [facility]A Auto SS pH (U) 6.0 *NA* (07/24/22 8:52 PM) Invalid Interpretation Code 5.0 - 9.0 [facility] Auto SS Protein (U) [Mass/Vol] Trace *ABN* (07/24/22 8:52 PM) Invalid Interpretation Code Negative [facility]A Auto SS Specific gravity (U) [Rel density] 1.025 *NA* (07/24/22 8:52 PM) Invalid Interpretation Code 1.005 - 1.030 [facility] Auto SS UA Spec Desc Clean Catch (07/24/22 8:52 PM) Normal [facility] Auto SS Urobilinogen Qn (U) [id number] {Imelda'U}/dL Normal 0.0 - 1.0 EU/dL [facility]A Auto SS WBC Auto Ql (U) Negative (07/24/22 8:52 PM) Normal Negative [facility]A Auto SS WBC LM.HPF (Urine sed) [#/Area] 6-15 /HPF Invalid Interpretation Code 0-5/HPF [facility]A Auto SS CHEMISTRYOrdered By: SYSTEM SYSTEM on 10-20-2021 Albumin [Mass/Vol] 3.9 g/dL Normal 3.3 - 5.0 gm/dL [facility] Albumin/Globulin [Mass ratio] 1.6 {ratio} Normal 1.1 - 2.2 [facility] ALP [Catalytic activity/Vol] 42 [iU]/d Normal 21 - 98 Int._Unit/L [facility] ALT No additional P-5'-P [Catalytic activity/Vol] 21 [iU]/d Normal 6 - 46 Int._Unit/L [facility] Comment on above: Result Comment: 'Spe cimen hemolyzed, result may be affected. Recommend redraw.' Anion gap [Moles/Vol] 11 mmol/L Normal 6 - 16 mEq/L [facility] AST [Catalytic activity/Vol] 34 [iU]/d Normal 5 - 43 Int._Unit/L [facility] Comment on above: Result Comment: 'Spe cimen hemolyzed, result may be affected. Recommend redraw.' Bilirubin [Mass/Vol] 1.8 mg/dL High 0.0 - 1 .1 mg/dL [facility] Comment on above: Result Comment: 'Spe cimen hemolyzed, result may be affected. Redraw is recommended.' Bilirubin.direct [Mass/Vol] 0.5 mg/dL High 0.1 - 0.4 mg/dL [facility] Comment on above: Result Comment: 'Spe cimen hemolyzed, result may be affected. Redraw recommended.' Calcium [Mass/Vol] 8.9 mg/dL Normal 8.9 - 11. 1 mg/dL [facility] Chloride [Moles/Vol] 108 mmol/L Normal 101 - 1 11 mmol/L [facility] Cholesterol [Mass/Vol] 226 mg/dL High 120 - 200 mg/dL [facility] Cholesterol in HDL [Mass/Vol] 36 mg/dL Invalid Interpretation Code [facility] Cholesterol in LDL [Mass/Vol] 180 mg/dL High <=129mg/dL [facility] Cholesterol in VLDL [Mass/Vol] 11 mg/dL Normal 7 - 40 mg/dL [facility] CO2 [Moles/Vol] 22 mmol/L Normal 21 - 31 mmol/L [facility] Creatinine [Mass/Vol] 0.7 mg/dL Normal 0.5 - 1.3 mg/dL [facility] Free T4 index Calc [Mass/Vol] 9.88 ng/dL Normal 5.90 - 13.10 ng/dL [facility] GFR/1.73 sq M.predicted among blacks MDRD (S/P/Bld) [Vol rate/Area] mL/min/1.73 m2 Normal >=59mL/min/1. 73 m2 [facility] Chem S GFR/1.73 sq M.predicted among non-blacks MDRD (S/P/Bld) [Vol rate/Area] mL/min/1.73 m2 Normal >=59mL/min/1. 73 m2 [facility] S Globulin (S) [Mass/Vol] 2.5 g/dL Normal 1.4 - 4.0 gm/dL [facility] Glucose [Mass/Vol] 92 mg/dL Normal 55 - 199 mg/dL [facility] Potassium [Moles/Vol] 4.8 mmol/L Normal 3.5 - 5.3 mmol/L [facility] Protein [Mass/Vol] 6.4 g/dL Normal 6.0 - 7.8 gm/dL [facility] Sodium [Moles/Vol] 136 mmol/L Normal 135 - 145 mmol/L [facility] T4 [Mass/Vol] 10.4 ug/dL High 4.6 - 9.1 mcg/dL [facility] T4 uptake [Mass/Vol] 38.0 % Normal 32.0 - 48.4 % [facility] Triglyceride [Mass/Vol] 57 mg/dL Normal <=149mg/dL [facility] TSH Qn 1.29 m[IU]/L Normal 0.34 - 5.60 mcIU/mL [facility] Urea nitrogen [Mass/Vol] 14 mg/dL Normal 5 - 21 mg/dL [facility] Urea nitrogen/Creatinine [Mass ratio] 20 mg/mg Normal 10 - 20 [facility] HEMATOLOGYOrdered By: SYSTEM SYSTEM on 10-20-2021 Basophils/100 WBC (Bld) 0.6 % Normal 0.0 - 2.0 % [facility] Basophils/Leukocytes Auto (Bld) [Pure # fraction] 0.0 E9/L Normal 0.0 - 0.2 E9/L [facility] Eosinophils/100 WBC (Bld) 3.2 % Normal 0.0 - 8.0 % [facility] Eosinophils/Leukocyte s Auto (Bld) [Pure # fraction] 0.2 E9/L Normal 0.0 - 0.5 E9/L [facility] Lymphocytes/100 WBC (Bld) 38.5 % Normal 14.0 - 50.0 % [facility] Lymphocytes/Leukocyte s Auto (Bld) [Pure # fraction] 2.6 E9/L Normal 1.0 - 4.0 E9/L [facility] Monocytes/100 WBC (Bld) 5.4 % Normal 4.0 - 14.0 % [facility] Monocytes/Leukocytes Auto (Bld) [Pure # fraction] 0.4 E9/L Normal 0.2 - 1.0 E9/L [facility] Neutrophils/100 WBC (Bld) 52.3 % Normal 36.0 - 75.0 % [facility] Neutrophils/Leukocyte s Auto (Bld) [Pure # fraction] 3.5 E9/L Normal 2.0 - 7.5 E9/L [facility] HEMATOLOGYOrdered By: Jer Zepeda on 10-20-2021 Erythrocyte distribution width (RBC) [Ratio] 13.2 % Normal 10.9 - 14.2 % [facility] Hematocrit (Bld) [Volume fraction] 40.1 % Normal 34.0 - 46.0 % [facility] Hemoglobin (Bld) [Mass/Vol] 13.6 g/dL Normal 12.0 - 16.0 gm/dL [facility] MCH (RBC) [Entitic mass] 27.9 pg Normal 27.0 - 34.0 pg [facility] MCHC (RBC) [Mass/Vol] 33.9 g/dL Normal 31.4 - 36.0 gm/dL [facility] MCV (RBC) [Entitic vol] 82.2 fL Normal 80.0 - 100.0 fL [facility] Platelet mean volume (Bld) [Entitic vol] 8.4 fL Normal 6.4 - 10.8 fL [facility] Platelets (Bld) [#/Vol] 287.0 E9/L Normal 150.0 - 500.0 E9/L [facility] RBC (Bld) [#/Vol] 4.9 E12/L Normal 4.3 - 5.9 E12/L [facility] WBC corrected for nucl RBC Auto (Bld) [#/Vol] 6.8 E9/L Normal 4.0 - 11.0 E9/L [facility] Vital Signs Date Time Vital Sign Value Performing Clinician Facility 09-08-2023 08:07-0500 Body weight 86.184 kg Rik Crespo [facility] Comment on above: Performed By: #### [id number] ####Bimal [facility] [id number] [place] [address] 07-07-2023 16:00-0500 Diastolic blood pressure 81 mm[Hg] Rik Crespo [facility] 07-07-2023 16:00-0500 Heart rate 90 /min Rik Zak [facility] 07-07-2023 16:00-0500 Mean blood pressure 101 mm[Hg] Rik Zak [facility] 07-07-2023 16:00-0500 SaO2% (BldA) [Mass fraction] 96 % Rik Zak [facility] 07-07-2023 16:00-0500 Systolic blood pressure 141 mm[Hg] Rik Zak [facility] 07-07-2023 15:08-0500 Diastolic blood pressure 79 mm[Hg] Rik Zak [facility] 07-07-2023 15:08-0500 Heart rate 96 /min Rik Zak [facility] 07-07-2023 15:08-0500 Mean blood pressure 92 mm[Hg] Rik Zak [facility] 07-07-2023 15:08-0500 Respiratory rate 15 /min Rik Zak [facility] 07-07-2023 15:08-0500 SaO2% (BldA) [Mass fraction] 99 % Rik Zak [facility] 07-07-2023 15:08-0500 Systolic blood pressure 119 mm[Hg] Rik Zak [facility] 07-07-2023 13:33-0500 Body temperature 98.24 [degF] Rik Zak [facility] 07-07-2023 13:33-0500 Diastolic blood pressure 91 mm[Hg] Rik Zak [facility] 07-07-2023 13:33-0500 Heart rate 110 /min Rik Zak [facility] 07-07-2023 13:33-0500 Respiratory rate 16 /min Rik Crespo [facility] 07-07-2023 13:33-0500 SaO2% (BldA) [Mass fraction] 100 % Rik Crespo [facility] 07-07-2023 13:33-0500 Systolic blood pressure 128 mm[Hg] Rik Crespo [facility] 04-30-2023 07:05-0400 Blood Pressure Location Jory Doran [facility] 04-30-2023 07:05-0400 Body temperature 97.7 [degF] Jory Missler [facility] 04-30-2023 07:05-0400 Diastolic blood pressure 62 mm[Hg] Jory Missler [facility] 04-30-2023 07:05-0400 Heart rate 82 /min Jory Missler [facility] 04-30-2023 07:05-0400 SaO2% (BldA) [Mass fraction] 99 % Jory Missler [facility] 04-30-2023 07:05-0400 Systolic blood pressure 118 mm[Hg] Jory Missler [facility] 01-19-2023 07:52-0400 Blood Pressure Location Jory Missler [facility] 01-19-2023 07:52-0400 Diastolic blood pressure 62 mm[Hg] Jory Missler [facility] 01-19-2023 07:52-0400 Heart rate 91 /min Jory Missler [facility] 01-19-2023 07:52-0400 SaO2% (BldA) [Mass fraction] 99 % Jory Missler [facility] 01-19-2023 07:52-0400 Systolic blood pressure 124 mm[Hg] Jory Missler [facility] 09-23-2022 16:18-0500 Blood Pressure Location Jory Missler [facility] 09-23-2022 16:18-0500 Diastolic blood pressure 78 mm[Hg] Jory Missler [facility] 09-23-2022 16:18-0500 Heart rate 96 /min Jory Missler [facility] 09-23-2022 16:18-0500 Respiratory rate 18 /min Jory Missler [facility] 09-23-2022 16:18-0500 SaO2% (BldA) [Mass fraction] 98 % Jory Missler [facility] 09-23-2022 16:18-0500 Systolic blood pressure 118 mm[Hg] Jory Missler [facility] 07-24-2022 23:30-0500 Diastolic blood pressure 79 mm[Hg] Kaylinn Dokken [facility] 07-24-2022 23:30-0500 Heart rate 90 /min Kaylinn Dokken [facility] 07-24-2022 23:30-0500 Respiratory rate 16 /min Kaylinn Dokken [facility] 07-24-2022 23:30-0500 SaO2% (BldA) [Mass fraction] 99 % Kaylinn Dokken [facility] 07-24-2022 23:30-0500 Systolic blood pressure 100 mm[Hg] Kaylinn Dokken [facility] 07-24-2022 22:00-0500 Diastolic blood pressure 75 mm[Hg] Kaylinn Dokken [facility] 07-24-2022 22:00-0500 Heart rate 101 /min Kaylinn Dokken [facility] 07-24-2022 22:00-0500 Mean blood pressure 87 mm[Hg] Kaylinn Dokken [facility] 07-24-2022 22:00-0500 Respiratory rate 18 /min Kaylinn Dokken [facility] 07-24-2022 22:00-0500 SaO2% (BldA) [Mass fraction] 98 % Kaylinn Dokken [facility] 07-24-2022 22:00-0500 Systolic blood pressure 110 mm[Hg] Kaylinn Dokken [facility] 07-24-2022 21:30-0500 Diastolic blood pressure 68 mm[Hg] Kaylinn Dokken [facility] 07-24-2022 21:30-0500 Heart rate 109 /min Kaylinn Dokken [facility] 07-24-2022 21:30-0500 Mean blood pressure 79 mm[Hg] Kaylinn Dokken [facility] 07-24-2022 21:30-0500 Respiratory rate 20 /min Kaylinn Dokken [facility] 07-24-2022 21:30-0500 SaO2% (BldA) [Mass fraction] 97 % Sunithan kken [facility] 07-24-2022 21:30-0500 Systolic blood pressure 100 mm[Hg] Sunithan Dokken [facility] 07-24-2022 21:00-0500 Heart rate 116 /min Jessica Lua [facility] 07-24-2022 21:00-0500 Mean blood pressure 89 mm[Hg] Sunithan kkdulce maria [facility] 07-24-2022 20:36-0500 Body temperature 98.78 [degF] Jessica Lua [facility] 07-24-2022 20:36-0500 [facility] 130 [facility] Encounters Encounter Date Encounter Type Care Provider Facility Start: 09-03-2023 End: 09-04-2023 ambulatory Mirlande BLAIR [place] Start: 09-03-2023 End: 09-03-2023 Patient encounter procedure rita dominick [facility] Start: 08-23-2023 End: 08-23-2023 ambulatory RITA SALINAS Not Available Start: 07-22-2023 End: 07-22-2023 ambulatory MIRLANDE BLAIR Not Available Start: 07-16-2023 End: 07-17-2023 ambulatory Jory Doran Facility:[facility] Start: 07-07-2023 End: 07-07-2023 Emergency department patient visit Rik Crespo [facility] Start: 07-07-2023 End: 07-07-2023 Emergency department patient visit Rik Crespo [facility] Start: 06-18-2023 End: 06-18-2023 ambulatory RITA SALINAS Not Available Start: 05-27-2023 End: 05-28-2023 ambulatory Mirlande R EDGARD [facility] Start: 05-27-2023 End: 05-27-2023 Patient encounter procedure Mirlande R EDGARD [facility] Start: 05-25-2023 End: 05-26-2023 ambulatory Mirlande R EDGARD [facility] Start: 05-25-2023 End: 05-25-2023 Patient encounter procedure Mirlande R EDGARD [facility] Start: 04-30-2023 End: 05-01-2023 ambulatory Joryvani Doran Facility:[facility] Start: 04-30-2023 End: 04-30-2023 Patient encounter procedure Jory Doran [facility] Start: 04-09-2023 End: 04-10-2023 ambulatory DIMITRI BARILLAS DO Facility[place] Start: 04-09-2023 End: 04-09-2023 Patient encounter procedure DIMITRI BARILLAS DO [facility] Start: 04-02-2023 End: 04-03-2023 ambulatory DIMITRI BARILLAS DO Facility[facility] Start: 04-02-2023 End: 04-02-2023 Patient encounter procedure DIMITRI BARILLAS DO [facility] Start: 03-15-2023 End: 03-16-2023 ambulatory Narcisa Gordon Facility:[facility] Start: 03-15-2023 End: 03-15-2023 Patient encounter procedure Narcisa Gordon [facility] Start: 01-19-2023 End: 01-20-2023 ambulatory Jory Doran [facility] Start: 01-19-2023 End: 01-19-2023 Patient encounter procedure Jory Doran [facility] Start: 01-19-2023 End: 01-19-2023 Well adult monitoring check done Jory Doran [facility] Start: 12-08-2022 End: 12-09-2022 ambulatory Jory Doran Facility:[facility] Start: 12-08-2022 End: 12-08-2022 Patient encounter procedure Jory Doran [facility] Start: 10-28-2022 ambulatory Rik Crespo Facility:[facility] Start: 09-23-2022 End: 09-24-2022 ambulatory Jory Doran Facility:[facility] Start: 09-23-2022 End: 09-23-2022 Patient encounter procedure Jory Doran [facility] Start: 07-24-2022 End: 07-24-2022 Emergency department patient visit Jessica Lua [facility] Start: 10-20-2021 End: 10-20-2021 Lab Drop off JORY DORAN [facility] Procedures Date Procedure Procedure Detail Performing Clinician Start: 12-31-2021 Microscopic examinat ion of cervical Papanicolaou smear and Human papillomavirus deoxyribonucleic acid detection cotesting Jory Doran Start: 08-02-2009 Colonoscopy Jory rosas Maxillary sinus endo scopy with removal of cyst JORY DORAN Plan of Treatment Date Care Activity Detail Author Start: 10-05-2023 ambulatory Ambulatory Facility:[facility] Immunizations Immunization Date Immunization Notes Care Provider Fa cility 06-01-2023 influenza virus vaccine, unspecified formulation rita salinas [facility] 09-26-2022 SARS-CoV-2 (COVID-19 ) [id number] Jory Doran [facility] 06-17-2022 influenza virus vaccine, unspecified formulation Jory Doran [facility] 07-27-2021 SARS-CoV-2 (COVID-19 ) mRNA BNT-162b2 vax Jory Doran [facility] 05-15-2021 influenza virus vaccine, unspecified formulation Jory Doran [facility] 11-15-2020 COVID-19, mRNA, LNP- S, PF, 30 mcg/0.3 mL dose; Translations: [Pfizer-BioNTech COVID-19 Vaccine] JORY DORAN [facility] Comment on above: Reason for Medicatio n: Prophylaxis 10-18-2020 COVID-19, mRNA, LNP- S, PF, 30 mcg/0.3 mL dose; Translations: [Pfizer-BioNTech COVID-19 Vaccine] JORY DORAN [facility] Comment on above: Reason for Medicatio n: Prophylaxis 05-13-2020 influenza virus vaccine, unspecified formulation Jory Doran [facility] 05-19-2019 influenza virus vaccine, unspecified formulation Jory Doran [facility] 04-28-2018 influenza virus vaccine, unspecified formulation Jory Missler [facility] 05-13-2016 influenza virus vaccine, unspecified formulation Jory Missler [facility] 11-21-2015 measles, mumps and rubella virus vaccine Jory Missler [facility] 11-21-2015 tetanus toxoid, redu stephon diphtheria toxoid, and acellular pertussis vaccine, adsorbed Jory Missler [facility] 06-15-2015 influenza virus vaccine, unspecified formulation Jory Missler [facility] 05-12-2013 influenza virus vaccine, unspecified formulation Jory Missler [facility] 07-05-2012 influenza virus vaccine, unspecified formulation Jory Missler [facility] 12-04-2011 typhoid vaccine, unspecified formulation Jory Missler [facility] 06-21-2007 influenza virus vaccine, unspecified formulation Jory Missler [facility] 11-24-2006 HPV, unspecified formulation Jory Missler [facility] 11-24-2006 varicella virus vaccine Jacl ynn Missler [facility] 03-31-2006 tetanus toxoid, redu stephon diphtheria toxoid, and acellular pertussis vaccine, adsorbed Jory Missler [facility] 04-25-2003 influenza, whole Jory Mis sler [facility] 05-09-2002 influenza, whole Jory Mis sler [facility] 02-14-1998 DTaP, unspecified formulation Jory Missler [facility] 02-14-1998 measles, mumps and rubella virus vaccine Jory Missler [facility] 02-18-1995 varicella virus vaccine Jacl yantoinette Hogueler [facility] 08-21-1994 DTaP, unspecified formulation Jory Missler [facility] 04-27-1994 haemophilus influenz ae type b vaccine, PRP-T conjugate Jory Doran [facility] 04-27-1994 measles, mumps and rubella virus vaccine Jory Missler [facility] 10-01-1993 hepatitis B vaccine, pediatric or pediatric/adolescent dosage Jory Missler [facility] 06-30-1993 DTaP, unspecified formulation Jory Missler [facility] 06-30-1993 Hib, unspecified formulation Jory Missler [facility] 04-21-1993 DTaP, unspecified formulation Jory Missler [facility] 04-21-1993 Hib, unspecified formulation Jory Missler [facility] 02-17-1993 DTaP, unspecified formulation Jory Missler [facility] 02-17-1993 hepatitis B vaccine, pediatric or pediatric/adolescent dosage Jory Missler [facility] 02-17-1993 Hib, unspecified formulation Jory Doran [facility] 01-20-1993 hepatitis B vaccine, pediatric or pediatric/adolescent dosage Jory Doran [facility] Payers Date Payer Category Payer Unknown [id number] 1992 Unknown [id number] 2.16.84 [id number] 1992 Unknown [id number] 1992 Unknown [id number] 2.16.840 .[id number] 1992 Unknown [id number] 2.16.8 40.1.783789.3.579.2. 1992 Unknown [id number] 2.16.8 40.1.180979.3.579.2. 1992 Unknown [id number] 2.16.8 40.1.504700.3.579.2. 1992 Unknown [id number] 2.16.8 40.1.190898.3.579.2. 1992 Unknown [id number] 2.16.8 40.1.775299.3.579.2. 1992 Unknown [id number] 2.16.8 40.1.653615.3.579.2. 1992 Unknown [id number] 2.16.8 40.1.078961.3.579.2. 1992 Unknown [id number] 2.16.8 40.1.965840.3.579.2. 1992 Unknown [id number] 2.16.8 40.1.448010.3.579.2. 1992 Unknown [id number] 2.16.8 40.1.578062.3.579.2.727 1992 Unknown [id number] 2.16.8 40.1.523886.3.579.2.727 1992 Unknown [id number] 2.16.8 40.1.113164.3.579.2.727 1992 Unknown [id number] 2.16.8 40.1.510227.3.579.2.727 1992 Unknown [id number] 2.16.8 [id number] Social History Date Type Detail Facility Tobacco smoking status [place] Sex Assigned At Female [facility] Tobacco smoking status No Smokin g Status Entered [facility] Start: 09-23-2022 End: 07-16-2023 Tobacco smoking status Never smoked tobacco (finding) [facility] Tobacco smoking status Never [facility] Functional Status Date Assessment Result Facility 07-07-2023 Functional Status N/A [facility] 04-30-2023 Functional Status N/A [facility] 01-19-2023 Functional Status N/A [facility] 09-23-2022 Functional Status N/A [facility] 07-24-2022 Functional Status N/A [facility] Clinical Notes 07-24-2022 to 07-07-2023 Laboratory Note Date & Type Note Facility 07-07-2023 Hospital Discharg e instructions Patient Education 07/07/2023 16:13:52 Constipation, Adult Constipation, Adult Constipation is when a person has fewer than three bowel movements in a week, has difficulty having a bowel movement, or has stools (feces) that are dry, hard, or larger than normal. Constipation may be caused by an underlying condition. It may become worse with age if a person takes certain medicines and does not take in enough fluids. Follow these instructions at home: Eating and drinking Eat foods that have a lot of fiber, such as beans, whole grains, and fresh fruits and vegetables. Limit foods that are low in fiber and high in fat and processed sugars, such as fried or sweet foods. These include armenian fries, hamburgers, cookies, candies, and soda. Drink enough fluid to keep your urine pale yellow. General instructions Exercise regularly or as told by your health care provider. Try to do 150 minutes of moderate exercise each week. Use the bathroom when you have the urge to go. Do not hold it in. Take xape-mzn-vqlnrno and prescription medicines only as told by your health care provider. This includes any fiber supplements. During bowel movements: ?Practice deep breathing while relaxing the lower abdomen. ?Practice pelvic floor relaxation. Watch your condition for any changes. Let your health care provider know about them. Keep all follow-up visits as told by your health care provider. This is important. Contact a health care provider if: You have pain that gets worse. You have a fever. You do not have a bowel movement after 4 days. You vomit. You are not hungry or you lose weight. You are bleeding from the opening between the buttocks (anus). You have thin, pencil-like stools. Get help right away if: You have a fever and your symptoms suddenly get worse. You leak stool or have blood in your stool. Your abdomen is bloated. You have severe pain in your abdomen. You feel dizzy or you faint. Summary Constipation is when a person has fewer than three bowel movements in a week, has difficulty having a bowel movement, or has stools (feces) that are dry, hard, or larger than normal. Eat foods that have a lot of fiber, such as beans, whole grains, and fresh fruits and vegetables. Drink enough fluid to keep your urine pale yellow. Take leyi-uho-rrqvqdx and prescription medicines only as told by your health care provider. This includes any fiber supplements. This information is not intended to replace advice given to you by your health care provider. Make sure you discuss any questions you have with your health care provider. Document Revised: 06/05/2020 Document Reviewed: 06/05/2020 [employer] Patient Education 2022 [employer]. Follow Up Care 07/07/2023 13:26:20 With:Jory Doran Address: [address] [place] [address], [place] [address] Business (1) When:07/10/2023 16:11:14 Comments:Call the office of your primary care doctor to arrange for follow-up within the above-stated timeframe. Follow-up with your primary care doctor about this ED visit. You should review your labs, imaging, and diagnoses from this ED visit with your primary care physician. There are occasionally non-emergent findings that require additional follow-up after your ED visit. If you were prescribed medications you should discuss possible side-effects and drug interactions with your pharmacist. Call 911 or go to the nearest Emergency Department if you develop any new or worsening symptoms.Seek immediate medical attention if you develop:worsening abdominal pain, new or worsening nausea, new or worsening vomiting, new or worsening diarrhea, chest pain, shortness of breath, pain with urination, problems urinating, fever, chills, weakness, or any new or worsening symptoms.Begin taking Colace stool softener. Buy one 250 g container of MiraLAX. Buy 2x 32oz ounce Gatorade's. Split the 250 g MiraLAX between the 2 Gatorade's. Drink 1 of those tonight. If no results drink the other 1 tomorrow. [facility] 04-26-2023 Hospital Discharg e instructions Patient Education 04/26/2023 07:02:54 BMI for Adults BMI for Adults What is BMI? Body mass index (BMI) is a number that is calculated from a person's weight and height. BMI can help estimate how much of a person's weight is composed of fat. BMI does not measure body fat directly. Rather, it is an alternative to procedures that directly measure body fat, which can be difficult and expensive. BMI can help identify people who may be at higher risk for certain medical problems. What are BMI measurements used for? BMI is used as a screening tool to identify possible weight problems. It helps determine whether a person is obese, overweight, a healthy weight, or underweight. BMI is useful for: Identifying a weight problem that may be related to a medical condition or may increase the risk for medical problems. Promoting changes, such as changes in diet and exercise, to help reach a healthy weight. BMI screening can be repeated to see if these changes are working. How is BMI calculated? BMI involves measuring your weight in relation to your height. Both height and weight are measured, and the BMI is calculated from those numbers. This can be done either in [place] or metric measurements. Note that charts and online BMI calculators are available to help you find your BMI quickly and easily without having to do these calculations yourself. To calculate your BMI in [place] measurements: 1.Measure your weight in pounds (lb). 2.Multiply the number of pounds by 703. For example, for a person who weighs 180 lb, multiply that number by 703, which equals 126,540. 3.Measure your height in inches. Then multiply that number by itself to get a measurement called inches squared. For example, for a person who is 70 inches tall, the inches squared measurement is 70 inches x 70 inches, which equals 4,900 inches squared. 4.Divide the total from step 2 (number of lb x 703) by the total from step 3 (inches squared): 126,540 4,900 = 25.8. This is your BMI. To calculate your BMI in metric measurements: 1.Measure your weight in kilograms (kg). 2.Measure your height in meters (m). Then multiply that number by itself to get a measurement called meters squared. For example, for a person who is 1.75 m tall, the meters squared measurement is 1.75 m x 1.75 m, which is equal to 3.1 meters squared. 3.Divide the number of kilograms (your weight) by the meters squared number. In this example: 70 3.1 = 22.6. This is your BMI. What do the results mean? BMI charts are used to identify whether you are underweight, normal weight, overweight, or obese. The following guidelines will be used: Underweight: BMI less than 18.5. Normal weight: BMI between 18.5 and 24.9. Overweight: BMI between 25 and 29.9. Obese: BMI of 30 or above. Keep these notes in mind: Weight includes both fat and muscle, so someone with a muscular build, such as an athlete, may have a BMI that is higher than 24.9. In cases like these, BMI is not an accurate measure of body fat. To determine if excess body fat is the cause of a BMI of 25 or higher, further assessments may need to be done by a health care provider. BMI is usually interpreted in the same way for men and women. Where to find more information For more information about BMI, including tools to quickly calculate your BMI, go to these websites: Centers for Disease Control and Prevention: www.cdc.gov [place] [employer]: www.heart.org National Heart, Lung, and Blood Browns: www.nhlbi.nih.gov Summary Body mass index (BMI) is a number that is calculated from a person's weight and height. BMI may help estimate how much of a person's weight is composed of fat. BMI can help identify those who may be at higher risk for certain medical problems. BMI can be measured using [place] measurements or metric measurements. BMI charts are used to identify whether you are underweight, normal weight, overweight, or obese. This information is not intended to replace advice given to you by your health care provider. Make sure you discuss any questions you have with your health care provider. Document Revised: 04/10/2020 Document Reviewed: 02/16/2020 [employer] Patient Education 2022 [employer]. 04/26/2023 07:02:53 Attention Deficit Hyperactivity Disorder, Adult Attention Deficit Hyperactivity Disorder, Adult Attention deficit hyperactivity disorder (ADHD) is a mental health disorder that starts during childhood (neurodevelopmental disorder). For many people with ADHD, the disorder continues into the adult years. Treatment can help you manage your symptoms. What are the causes? The exact cause of ADHD is not known. Most experts believe genetics and environmental factors contribute to ADHD. What increases the risk? The following factors may make you more likely to develop this condition: Having a family history of ADHD. Being male. Being born to a mother who smoked or drank alcohol during . Being exposed to lead or other toxins in the womb or early in life. Being born before 37 weeks of (prematurely) or at a low weight. Having experienced a brain injury. What are the signs or symptoms? Symptoms of this condition depend on the type of ADHD. The two main types are inattentive and hyperactive-impulsive. Some people may have symptoms of both types. Symptoms of the inattentive type include: Difficulty paying attention. Making careless mistakes. Not following instructions. Being disorganized. Avoiding tasks that require time and attention. Losing and forgetting things. Being easily distracted. Symptoms of the hyperactive-impulsive type include: Restlessness. Talking too much. Interrupting. Difficulty with: ?Sitting still. ?Feeling motivated. ?Relaxing. ?Waiting in line or waiting for a turn. In adults, this condition may lead to certain problems, such as: Keeping jobs. Performing tasks at work. Having stable relationships. Being on time or keeping to a schedule. How is this diagnosed? This condition is diagnosed based on your current symptoms and your history of symptoms. The diagnosis can be made by a health care provider such as a primary care provider or a mental health rn transitional care. Your health care provider may use a symptom checklist or a behavior rating scale to evaluate your symptoms. He or she may also want to talk with people who have observed your behaviors throughout your life. How is this treated? This condition can be treated with medicines and behavior therapy. Medicines may be the best option to reduce impulsive behaviors and improve attention. Your health care provider may recommend: Stimulant medicines. These are the most common medicines used for adult ADHD. They affect certain chemicals in the brain (neurotransmitters) and improve your ability to control your symptoms. A non-stimulant medicine for adult ADHD (atomoxetine). This medicine increases a neurotransmitter called norepinephrine. It may take weeks to months to see effects from this medicine. Counseling and behavioral management are also important for treating ADHD. Counseling is often used along with medicine. Your health care provider may suggest: Cognitive behavioral therapy (CBT). This type of therapy teaches you to replace negative thoughts and actions with positive thoughts and actions. When used as part of ADHD treatment, this therapy may also include: ?Coping strategies for organization, time management, impulse control, and stress reduction. ?Mindfulness and meditation training. Behavioral management. You may work with a scrum coach who is specially trained to help people with ADHD manage and organize activities and function more effectively. Follow these instructions at home: Medicines Take [id number] and prescription medicines only as told by your health care provider. Talk with your health care provider about the possible side effects of your medicines and how to manage them. Lifestyle Do not use drugs. Do not drink alcohol if: ?Your health care provider tells you not to drink. ?You are , may be , or are planning to become . If you drink alcohol: ?Limit how much you use to: ?0 1 drink a day for women. ?0 2 drinks a day for men. ?Be aware of how much alcohol is in your drink. In the [place] one drink equals one 12 oz bottle of beer (355 mL), one 5 oz glass of wine (148 mL), or one 1 oz glass of hard liquor (44 mL). Get enough sleep. Eat a healthy diet. Exercise regularly. Exercise can help to reduce stress and anxiety. General instructions Learn as much as you can about adult ADHD, and work closely with your health care providers to find the treatments that work best for you. Follow the same schedule each day. Use reminder devices like notes, calendars, and phone apps to stay on time and organized. Keep all follow-up visits as told by your health care provider and therapist. This is important. Where to find more information A health care provider may be able to recommend resources that are available online or over the phone. You could start with: Attention Deficit Disorder Association (ADDA): www.add.org National Browns of Mental Health (NIMH): www.nimh.nih.gov Contact a health care provider if: Your symptoms continue to cause problems. You have side effects from your medicine, such as: ?Repeated muscle twitches, coughing, or speech outbursts. ?Sleep problems. ?Loss of appetite. ?Dizziness. ?Unusually fast heartbeat. ?Stomach pains. ?Headaches. You are struggling with anxiety, depression, or substance abuse. Get help right away if you: Have a severe reaction to a medicine. If you ever feel like you may hurt yourself or others, or have thoughts about taking your own life, get help right away. You can go to the nearest emergency department or call: Your local emergency services (911 in the [place] A suicide crisis helpline, such as the National Suicide Prevention Lifeline at or 068 in the [place] This is open 24 hours a day. Summary ADHD is a mental health disorder that starts during childhood (neurodevelopmental disorder) and often continues into the adult years. The exact cause of ADHD is not known. Most experts believe genetics and environmental factors contribute to ADHD. There is no cure for ADHD, but treatment with medicine, cognitive behavioral therapy, or behavioral management can help you manage your condition. This information is not intended to replace advice given to you by your health care provider. Make sure you discuss any questions you have with your health care provider. Document Revised: 02/11/2022 Document Reviewed: 12/11/2019 [employer] Patient Education 2022 [employer]. Follow Up Care 03/25/2023 08:48:35 With:Jory Monet Address: [address], [place] [address]- When:Within 3 Month(s) Comments:f/u ADHD, med recheck [facility] 01-19-2023 Evaluation + Plan note Future Scheduled TestsTSH With T4fr Reflex 01/19/23CBC w/ Auto Diff 01/19/23Comprehensive Metabolic Panel 01/19/23Lipid Panel 01/19/23 [facility] 01-19-2023 Hospital Discharg e instructions Patient Education 01/19/2023 08:21:02 Health Maintenance, Female Health Maintenance, Female Adopting a healthy lifestyle and getting preventive care are important in promoting health and wellness. Ask your health care provider about: The right schedule for you to have regular tests and exams. Things you can do on your own to prevent diseases and keep yourself healthy. What should I know about diet, weight, and exercise? Eat a healthy diet Eat a diet that includes plenty of vegetables, fruits, low-fat dairy products, and lean protein. Do not eat a lot of foods that are high in solid fats, added sugars, or sodium. Maintain a healthy weight Body mass index (BMI) is used to identify weight problems. It estimates body fat based on height and weight. Your health care provider can help determine your BMI and help you achieve or maintain a healthy weight. Get regular exercise Get regular exercise. This is one of the most important things you can do for your health. Most adults should: Exercise for at least 150 minutes each week. The exercise should increase your heart rate and make you sweat (moderate-intensity exercise). Do strengthening exercises at least twice a week. This is in addition to the moderate-intensity exercise. Spend less time sitting. Even light physical activity can be beneficial. Watch cholesterol and blood lipids Have your blood tested for lipids and cholesterol at 20 years of age, then have this test every 5 years. Have your cholesterol levels checked more often if: Your lipid or cholesterol levels are high. You are older than 40 years of age. You are at high risk for heart disease. What should I know about cancer screening? Depending on your health history and family history, you may need to have cancer screening at various ages. This may include screening for: Breast cancer. Cervical cancer. Colorectal cancer. Skin cancer. Lung cancer. What should I know about heart disease, diabetes, and high blood pressure? Blood pressure and heart disease High blood pressure causes heart disease and increases the risk of stroke. This is more likely to develop in people who have high blood pressure readings or are overweight. Have your blood pressure checked: ?Every 3 5 years if you are 18 39 years of age. ?Every year if you are 40 years old or older. Diabetes Have regular diabetes screenings. This checks your fasting blood sugar level. Have the screening done: Once every three years after age 40 if you are at a normal weight and have a low risk for diabetes. More often and at a younger age if you are overweight or have a high risk for diabetes. What should I know about preventing infection? Hepatitis B If you have a higher risk for hepatitis B, you should be screened for this virus. Talk with your health care provider to find out if you are at risk for hepatitis B infection. Hepatitis C Testing is recommended for: Everyone born from 1945 through 1965. Anyone with known risk factors for hepatitis C. Sexually transmitted infections (STIs) Get screened for STIs, including gonorrhea and chlamydia, if: ?You are sexually active and are younger than 24 years of age. ?You are older than 24 years of age and your health care provider tells you that you are at risk for this type of infection. ?Your sexual activity has changed since you were last screened, and you are at increased risk for chlamydia or gonorrhea. Ask your health care provider if you are at risk. Ask your health care provider about whether you are at high risk for HIV. Your health care provider may recommend a prescription medicine to help prevent HIV infection. If you choose to take medicine to prevent HIV, you should first get tested for HIV. You should then be tested every 3 months for as long as you are taking the medicine. If you are about to stop having your period (premenopausal) and you may become , seek counseling before you get . Take 400 to 800 micrograms (mcg) of folic acid every day if you become . Ask for control (contraception) if you want to prevent . Osteoporosis and menopause Osteoporosis is a disease in which the bones lose minerals and strength with aging. This can result in bone fractures. If you are 65 years old or older, or if you are at risk for osteoporosis and fractures, ask your health care provider if you should: Be screened for bone loss. Take a calcium or vitamin D supplement to lower your risk of fractures. Be given hormone replacement therapy (HRT) to treat symptoms of menopause. Follow these instructions at home: Alcohol use Do not drink alcohol if: ?Your health care provider tells you not to drink. ?You are , may be , or are planning to become . If you drink alcohol: ?Limit how much you have to: ?0 1 drink a day. ?Know how much alcohol is in your drink. In the [place] one drink equals one 12 oz bottle of beer (355 mL), one 5 oz glass of wine (148 mL), or one 1 oz glass of hard liquor (44 mL). Lifestyle Do not use any products that contain nicotine or tobacco. These products include cigarettes, chewing tobacco, and vaping devices, such as e-cigarettes. If you need help quitting, ask your health care provider. Do not use street drugs. Do not share needles. Ask your health care provider for help if you need support or information about quitting drugs. General instructions Schedule regular health, dental, and eye exams. Stay current with your vaccines. Tell your health care provider if: ?You often feel depressed. ?You have ever been abused or do not feel safe at home. Summary Adopting a healthy lifestyle and getting preventive care are important in promoting health and wellness. Follow your health care provider's instructions about healthy diet, exercising, and getting tested or screened for diseases. Follow your health care provider's instructions on monitoring your cholesterol and blood pressure. This information is not intended to replace advice given to you by your health care provider. Make sure you discuss any questions you have with your health care provider. Document Revised: 12/08/2021 Document Reviewed: 12/08/2021 [employer] Patient Education 2022 [employer]. 01/19/2023 08:20:59 Exercising to Lose Weight Exercising to Lose Weight Getting regular exercise is important for everyone. It is especially important if you are overweight. Being overweight increases your risk of heart disease, stroke, diabetes, high blood pressure, and several types of cancer. Exercising, and reducing the calories you consume, can help you lose weight and improve fitness and health. Exercise can be moderate or vigorous intensity. To lose weight, most people need to do a certain amount of moderate or vigorous-intensity exercise each week. How can exercise affect me? You lose weight when you exercise enough to burn more calories than you eat. Exercise also reduces body fat and builds muscle. The more muscle you have, the more calories you burn. Exercise also: Improves mood. Reduces stress and tension. Improves your overall fitness, flexibility, and endurance. Increases bone strength. Moderate-intensity exercise Moderate-intensity exercise is any activity that gets you moving enough to burn at least three times more energy (calories) than if you were sitting. Examples of moderate exercise include: Walking a mile in 15 minutes. Doing light yard work. Biking at an easy pace. Most people should get at least 150 minutes of moderate-intensity exercise a week to maintain their body weight. Vigorous-intensity exercise Vigorous-intensity exercise is any activity that gets you moving enough to burn at least six times more calories than if you were sitting. When you exercise at this intensity, you should be working hard enough that you are not able to carry on a conversation. Examples of vigorous exercise include: Running. Playing a team sport, such as football, basketball, and soccer. Jumping rope. Most people should get at least 75 minutes a week of vigorous exercise to maintain their body weight. What actions can I take to lose weight? The amount of exercise you need to lose weight depends on: Your age. The type of exercise. Any health conditions you have. Your overall physical ability. Talk to your health care provider about how much exercise you need and what types of activities are safe for you. Nutrition Make changes to your diet as told by your health care provider or diet and nutrition services manager (dietitian). This may include: ?Eating fewer calories. ?Eating more protein. ?Eating less unhealthy fats. ?Eating a diet that includes fresh fruits and vegetables, whole grains, low-fat dairy products, and lean protein. ?Avoiding foods with added fat, salt, and sugar. Drink plenty of water while you exercise to prevent dehydration or heat stroke. Activity Choose an activity that you enjoy and set realistic goals. Your health care provider can help you make an exercise plan that works for you. Exercise at a moderate or vigorous intensity most days of the week. ?The intensity of exercise may vary from person to person. You can tell how intense a workout is for you by paying attention to your breathing and heartbeat. Most people will notice their breathing and heartbeat get faster with more intense exercise. Do resistance training twice each week, such as: ?Push-ups. ?Sit-ups. ?Lifting weights. ?Using resistance bands. Getting short amounts of exercise can be just as helpful as long, structured periods of exercise. If you have trouble finding time to exercise, try doing these things as part of your daily routine: ?Get up, stretch, and walk around every 30 minutes throughout the day. ?Go for a walk during your lunch break. ?Park your car farther away from your destination. ?If you take public transportation, get off one stop early and walk the rest of the way. ?Make phone calls while standing up and walking around. ?Take the stairs instead of elevators or escalators. Wear comfortable clothes and shoes with good support. Do not exercise so much that you hurt yourself, feel dizzy, or get very short of breath. Where to find more information [place] Department of Health and Human Services: www.hhs.gov Centers for Disease Control and Prevention: www.cdc.gov Contact a health care provider: Before starting a new exercise program. If you have questions or concerns about your weight. If you have a medical problem that keeps you from exercising. Get help right away if: You have any of the following while exercising: ?Injury. ?Dizziness. ?Difficulty breathing or shortness of breath that does not go away when you stop exercising. ?Chest pain. ?Rapid heartbeat. These symptoms may represent a serious problem that is an emergency. Do not wait to see if the symptoms will go away. Get medical help right away. Call your local emergency services (911 in the [place] Do not drive yourself to the hospital. Summary Getting regular exercise is especially important if you are overweight. Being overweight increases your risk of heart disease, stroke, diabetes, high blood pressure, and several types of cancer. Losing weight happens when you burn more calories than you eat. Reducing the amount of calories you eat, and getting regular moderate or vigorous exercise each week, helps you lose weight. This information is not intended to replace advice given to you by your health care provider. Make sure you discuss any questions you have with your health care provider. Document Revised: 09/14/2021 Document Reviewed: 09/14/2021 [employer] Patient Education 2022 [employer]. 01/19/2023 08:20:57 Calorie Counting for Weight Loss Calorie Counting for Weight Loss Calories are units of energy. Your body needs a certain number of calories from food to keep going throughout the day. When you eat or drink more calories than your body needs, your body stores the extra calories mostly as fat. When you eat or drink fewer calories than your body needs, your body [place] fat to get the energy it needs. Calorie counting means keeping track of how many calories you eat and drink each day. Calorie counting can be helpful if you need to lose weight. If you eat fewer calories than your body needs, you should lose weight. Ask your health care provider what a healthy weight is for you. For calorie counting to work, you will need to eat the right number of calories each day to lose a healthy amount of weight per week. A dietitian can help you figure out how many calories you need in a day and will suggest ways to reach your calorie goal. A healthy amount of weight to lose each week is usually 1 2 lb (0.5 0.9 kg). This usually means that your daily calorie intake should be reduced by 500 750 calories. Eating 1,200 1,500 calories a day can help most women lose weight. Eating 1,500 1,800 calories a day can help most men lose weight. What do I need to know about calorie counting? Work with your health care provider or dietitian to determine how many calories you should get each day. To meet your daily calorie goal, you will need to: Find out how many calories are in each food that you would like to eat. Try to do this before you eat. Decide how much of the food you plan to eat. Keep a food log. Do this by writing down what you ate and how many calories it had. To successfully lose weight, it is important to balance calorie counting with a healthy lifestyle that includes regular activity. Where do I find calorie information? The number of calories in a food can be found on a Nutrition Facts label. If a food does not have a Nutrition Facts label, try to look up the calories online or ask your dietitian for help. Remember that calories are listed per serving. If you choose to have more than one serving of a food, you will have to multiply the calories per serving by the number of servings you plan to eat. For example, the label on a package of bread might say that a serving size is 1 slice and that there are 90 calories in a serving. If you eat 1 slice, you will have eaten 90 calories. If you eat 2 slices, you will have eaten 180 calories. How do I keep a food log? After each time that you eat, record the following in your food log as soon as possible: What you ate. Be sure to include toppings, sauces, and other extras on the food. How much you ate. This can be measured in cups, ounces, or number of items. How many calories were in each food and drink. The total number of calories in the food you ate. Keep your food log near you, such as in a pocket-sized notebook or on an isaiah or website on your mobile phone. Some programs will calculate calories for you and show you how many calories you have left to meet your daily goal. What are some portion-control tips? Know how many calories are in a serving. This will help you know how many servings you can have of a certain food. Use a measuring cup to measure serving sizes. You could also try weighing out portions on a kitchen scale. With time, you will be able to estimate serving sizes for some foods. Take time to put servings of different foods on your favorite plates or in your favorite bowls and cups so you know what a serving looks like. Try not to eat straight from a food's packaging, such as from a bag or box. Eating straight from the package makes it hard to see how much you are eating and can lead to overeating. Put the amount you would like to eat in a cup or on a plate to make sure you are eating the right portion. Use smaller plates, glasses, and bowls for smaller portions and to prevent overeating. Try not to multitask. For example, avoid watching TV or using your computer while eating. If it is time to eat, sit down at a table and enjoy your food. This will help you recognize when you are full. It will also help you be more mindful of what and how much you are eating. What are tips for following this plan? Reading food labels Check the calorie count compared with the serving size. The serving size may be smaller than what you are used to eating. Check the source of the calories. Try to choose foods that are high in protein, fiber, and vitamins, and low in saturated fat, trans fat, and sodium. Shopping Read nutrition labels while you shop. This will help you make healthy decisions about which foods to buy. Pay attention to nutrition labels for low-fat or fat-free foods. These foods sometimes have the same number of calories or more calories than the full-fat versions. They also often have added sugar, starch, or salt to make up for flavor that was removed with the fat. Make a grocery list of lower-calorie foods and stick to it. Cooking Try to cook your favorite foods in a healthier way. For example, try baking instead of frying. Use low-fat dairy products. Meal planning Use more fruits and vegetables. One-half of your plate should be fruits and vegetables. Include lean proteins, such as chicken, turkey, and fish. Lifestyle Each week, aim to do one of the followin minutes of moderate exercise, such as walking. 75 minutes of vigorous exercise, such as running. General information Know how many calories are in the foods you eat most often. This will help you calculate calorie counts faster. Find a way of tracking calories that works for you. Get creative. Try different apps or programs if writing down calories does not work for you. What foods should I eat? Eat nutritious foods. It is better to have a nutritious, high-calorie food, such as an avocado, than a food with few nutrients, such as a bag of potato chips. Use your calories on foods and drinks that will fill you up and will not leave you hungry soon after eating. ?Examples of foods that fill you up are nuts and nut butters, vegetables, lean proteins, and high-fiber foods such as whole grains. High-fiber foods are foods with more than 5 g of fiber per serving. Pay attention to calories in drinks. Low-calorie drinks include water and unsweetened drinks. The items listed above may not be a complete list of foods and beverages you can eat. Contact a dietitian for more information. What foods should I limit? Limit foods or drinks that are not good sources of vitamins, minerals, or protein or that are high in unhealthy fats. These include: Candy. Other sweets. Sodas, specialty coffee drinks, alcohol, and juice. The items listed above may not be a complete list of foods and beverages you should avoid. Contact a dietitian for more information. How do I count calories when eating out? Pay attention to portions. Often, portions are much larger when eating out. Try these tips to keep portions smaller: ?Consider sharing a meal instead of getting your own. ?If you get your own meal, eat only half of it. Before you start eating, ask for a container and put half of your meal into it. ?When available, consider ordering smaller portions from the menu instead of full portions. Pay attention to your food and drink choices. Knowing the way food is cooked and what is included with the meal can help you eat fewer calories. ?If calories are listed on the menu, choose the lower-calorie options. ?Choose dishes that include vegetables, fruits, whole grains, low-fat dairy products, and lean proteins. ?Choose items that are boiled, broiled, grilled, or steamed. Avoid items that are buttered, battered, fried, or served with cream sauce. Items labeled as crispy are usually fried, unless stated otherwise. ?Choose water, low-fat milk, unsweetened iced tea, or other drinks without added sugar. If you want an alcoholic beverage, choose a lower-calorie option, such as a glass of wine or light beer. ?Ask for dressings, sauces, and syrups on the side. These are usually high in calories, so you should limit the amount you eat. ?If you want a salad, choose a garden salad and ask for grilled meats. Avoid extra toppings such as carnes, cheese, or fried items. Ask for the dressing on the side, or ask for olive oil and vinegar or lemon to use as dressing. Estimate how many servings of a food you are given. Knowing serving sizes will help you be aware of how much food you are eating at restaurants. Where to find more information Centers for Disease Control and Prevention: www.cdc.gov [place] Department of Agriculture: myplate.gov Summary Calorie counting means keeping track of how many calories you eat and drink each day. If you eat fewer calories than your body needs, you should lose weight. A healthy amount of weight to lose per week is usually 1 2 lb (0.5 0.9 kg). This usually means reducing your daily calorie intake by 500 750 calories. The number of calories in a food can be found on a Nutrition Facts label. If a food does not have a Nutrition Facts label, try to look up the calories online or ask your dietitian for help. Use smaller plates, glasses, and bowls for smaller portions and to prevent overeating. Use your calories on foods and drinks that will fill you up and not leave you hungry shortly after a meal. This information is not intended to replace advice given to you by your health care provider. Make sure you discuss any questions you have with your health care provider. Document Revised: 08/29/2020 Document Reviewed: 08/29/2020 [employer] Patient Education 2022 [employer]. 01/19/2023 08:20:56 BMI for Adults BMI for Adults What is BMI? Body mass index (BMI) is a number that is calculated from a person's weight and height. BMI can help estimate how much of a person's weight is composed of fat. BMI does not measure body fat directly. Rather, it is an alternative to procedures that directly measure body fat, which can be difficult and expensive. BMI can help identify people who may be at higher risk for certain medical problems. What are BMI measurements used for? BMI is used as a screening tool to identify possible weight problems. It helps determine whether a person is obese, overweight, a healthy weight, or underweight. BMI is useful for: Identifying a weight problem that may be related to a medical condition or may increase the risk for medical problems. Promoting changes, such as changes in diet and exercise, to help reach a healthy weight. BMI screening can be repeated to see if these changes are working. How is BMI calculated? BMI involves measuring your weight in relation to your height. Both height and weight are measured, and the BMI is calculated from those numbers. This can be done either in [place] or metric measurements. Note that charts and online BMI calculators are available to help you find your BMI quickly and easily without having to do these calculations yourself. To calculate your BMI in [place] measurements: 1.Measure your weight in pounds (lb). 2.Multiply the number of pounds by 703. For example, for a person who weighs 180 lb, multiply that number by 703, which equals 126,540. 3.Measure your height in inches. Then multiply that number by itself to get a measurement called inches squared. For example, for a person who is 70 inches tall, the inches squared measurement is 70 inches x 70 inches, which equals 4,900 inches squared. 4.Divide the total from step 2 (number of lb x 703) by the total from step 3 (inches squared): 126,540 4,900 = 25.8. This is your BMI. To calculate your BMI in metric measurements: 1.Measure your weight in kilograms (kg). 2.Measure your height in meters (m). Then multiply that number by itself to get a measurement called meters squared. For example, for a person who is 1.75 m tall, the meters squared measurement is 1.75 m x 1.75 m, which is equal to 3.1 meters squared. 3.Divide the number of kilograms (your weight) by the meters squared number. In this example: 70 3.1 = 22.6. This is your BMI. What do the results mean? BMI charts are used to identify whether you are underweight, normal weight, overweight, or obese. The following guidelines will be used: Underweight: BMI less than 18.5. Normal weight: BMI between 18.5 and 24.9. Overweight: BMI between 25 and 29.9. Obese: BMI of 30 or above. Keep these notes in mind: Weight includes both fat and muscle, so someone with a muscular build, such as an athlete, may have a BMI that is higher than 24.9. In cases like these, BMI is not an accurate measure of body fat. To determine if excess body fat is the cause of a BMI of 25 or higher, further assessments may need to be done by a health care provider. BMI is usually interpreted in the same way for men and women. Where to find more information For more information about BMI, including tools to quickly calculate your BMI, go to these websites: Centers for Disease Control and Prevention: www.cdc.gov [place] [employer]: www.heart.org National Heart, Lung, and Blood Browns: www.nhlbi.nih.gov Summary Body mass index (BMI) is a number that is calculated from a person's weight and height. BMI may help estimate how much of a person's weight is composed of fat. BMI can help identify those who may be at higher risk for certain medical problems. BMI can be measured using [place] measurements or metric measurements. BMI charts are used to identify whether you are underweight, normal weight, overweight, or obese. This information is not intended to replace advice given to you by your health care provider. Make sure you discuss any questions you have with your health care provider. Document Revised: 04/10/2020 Document Reviewed: 02/16/2020 [employer] Patient Education 2022 [employer]. 01/19/2023 08:20:55 Attention Deficit Hyperactivity Disorder, Adult Attention Deficit Hyperactivity Disorder, Adult Attention deficit hyperactivity disorder (ADHD) is a mental health disorder that starts during childhood (neurodevelopmental disorder). For many people with ADHD, the disorder continues into the adult years. Treatment can help you manage your symptoms. What are the causes? The exact cause of ADHD is not known. Most experts believe genetics and environmental factors contribute to ADHD. What increases the risk? The following factors may make you more likely to develop this condition: Having a family history of ADHD. Being male. Being born to a mother who smoked or drank alcohol during . Being exposed to lead or other toxins in the womb or early in life. Being born before 37 weeks of (prematurely) or at a low weight. Having experienced a brain injury. What are the signs or symptoms? Symptoms of this condition depend on the type of ADHD. The two main types are inattentive and hyperactive-impulsive. Some people may have symptoms of both types. Symptoms of the inattentive type include: Difficulty paying attention. Making careless mistakes. Not following instructions. Being disorganized. Avoiding tasks that require time and attention. Losing and forgetting things. Being easily distracted. Symptoms of the hyperactive-impulsive type include: Restlessness. Talking too much. Interrupting. Difficulty with: ?Sitting still. ?Feeling motivated. ?Relaxing. ?Waiting in line or waiting for a turn. In adults, this condition may lead to certain problems, such as: Keeping jobs. Performing tasks at work. Having stable relationships. Being on time or keeping to a schedule. How is this diagnosed? This condition is diagnosed based on your current symptoms and your history of symptoms. The diagnosis can be made by a health care provider such as a primary care provider or a mental health rn transitional care. Your health care provider may use a symptom checklist or a behavior rating scale to evaluate your symptoms. He or she may also want to talk with people who have observed your behaviors throughout your life. How is this treated? This condition can be treated with medicines and behavior therapy. Medicines may be the best option to reduce impulsive behaviors and improve attention. Your health care provider may recommend: Stimulant medicines. These are the most common medicines used for adult ADHD. They affect certain chemicals in the brain (neurotransmitters) and improve your ability to control your symptoms. A non-stimulant medicine for adult ADHD (atomoxetine). This medicine increases a neurotransmitter called norepinephrine. It may take weeks to months to see effects from this medicine. Counseling and behavioral management are also important for treating ADHD. Counseling is often used along with medicine. Your health care provider may suggest: Cognitive behavioral therapy (CBT). This type of therapy teaches you to replace negative thoughts and actions with positive thoughts and actions. When used as part of ADHD treatment, this therapy may also include: ?Coping strategies for organization, time management, impulse control, and stress reduction. ?Mindfulness and meditation training. Behavioral management. You may work with a scrum coach who is specially trained to help people with ADHD manage and organize activities and function more effectively. Follow these instructions at home: Medicines Take ubdx-vev-agersrs and prescription medicines only as told by your health care provider. Talk with your health care provider about the possible side effects of your medicines and how to manage them. Lifestyle Do not use drugs. Do not drink alcohol if: ?Your health care provider tells you not to drink. ?You are , may be , or are planning to become . If you drink alcohol: ?Limit how much you use to: ?0 1 drink a day for women. ?0 2 drinks a day for men. ?Be aware of how much alcohol is in your drink. In the [place] one drink equals one 12 oz bottle of beer (355 mL), one 5 oz glass of wine (148 mL), or one 1 oz glass of hard liquor (44 mL). Get enough sleep. Eat a healthy diet. Exercise regularly. Exercise can help to reduce stress and anxiety. General instructions Learn as much as you can about adult ADHD, and work closely with your health care providers to find the treatments that work best for you. Follow the same schedule each day. Use reminder devices like notes, calendars, and phone apps to stay on time and organized. Keep all follow-up visits as told by your health care provider and therapist. This is important. Where to find more information A health care provider may be able to recommend resources that are available online or over the phone. You could start with: Attention Deficit Disorder Association (ADDA): www.add.org National Browns of Mental Health (NIMH): www.nimh.nih.gov Contact a health care provider if: Your symptoms continue to cause problems. You have side effects from your medicine, such as: ?Repeated muscle twitches, coughing, or speech outbursts. ?Sleep problems. ?Loss of appetite. ?Dizziness. ?Unusually fast heartbeat. ?Stomach pains. ?Headaches. You are struggling with anxiety, depression, or substance abuse. Get help right away if you: Have a severe reaction to a medicine. If you ever feel like you may hurt yourself or others, or have thoughts about taking your own life, get help right away. You can go to the nearest emergency department or call: Your local emergency services (911 in the [place] A suicide crisis helpline, such as the National Suicide Prevention Lifeline at or 159 in the [place] This is open 24 hours a day. Summary ADHD is a mental health disorder that starts during childhood (neurodevelopmental disorder) and often continues into the adult years. The exact cause of ADHD is not known. Most experts believe genetics and environmental factors contribute to ADHD. There is no cure for ADHD, but treatment with medicine, cognitive behavioral therapy, or behavioral management can help you manage your condition. This information is not intended to replace advice given to you by your health care provider. Make sure you discuss any questions you have with your health care provider. Document Revised: 02/11/2022 Document Reviewed: 12/11/2019 [email or web address] Patient Education 2022 [employer]. Follow Up Care 01/18/2023 08:48:37 With:Jory Monet Address: [address], [facility] [address]- When:Within 3 Month(s) Comments:f/u ADHD [facility] 09-23-2022 Hospital Discharg e instructions Patient Education 09/23/2022 16:39:31 BMI for Adults BMI for Adults Body mass index (BMI) is a number that is calculated from a person's weight and height. BMI may help to estimate how much of a person's weight is composed of fat. BMI can help identify those who may be at higher risk for certain medical problems. How is BMI used with adults? BMI is used as a screening tool to identify possible weight problems. It is used to check whether a person is obese, overweight, healthy weight, or underweight. How is BMI calculated? BMI measures your weight and compares it to your height. This can be done either in [place] or metric measurements. Note that charts are available to help you find your BMI quickly and easily without having to do these calculations yourself. To calculate your BMI in [place] measurements, your health care provider will: 1.Measure your weight in pounds (lb). 2.Multiply the number of pounds by 703. For example, for a person who weighs 180 lb, multiply that number by 703, which equals 126,540. 3.Measure your height in inches (in). Then multiply that number by itself to get a measurement called inches squared. For example, for a person who is 70 in tall, the inches squared measurement is 70 in x 70 in, which equals 4900 inches squared. 4.Divide the total from Step 2 (number of lb x 703) by the total from Step 3 (inches squared): 126,540 4900 = 25.8. This is your BMI. To calculate your BMI in metric measurements, your health care provider will: 1.Measure your weight in kilograms (kg). 2.Measure your height in meters (m). Then multiply that number by itself to get a measurement called meters squared. For example, for a person who is 1.75 m tall, the meters squared measurement is 1.75 m x 1.75 m, which is equal to 3.1 meters squared. 3.Divide the number of kilograms (your weight) by the meters squared number. In this example: 70 3.1 = 22.6. This is your BMI. How is BMI interpreted? To interpret your results, your health care provider will use BMI charts to identify whether you are underweight, normal weight, overweight, or obese. The following guidelines will be used: Underweight: BMI less than 18.5. Normal weight: BMI between 18.5 and 24.9. Overweight: BMI between 25 and 29.9. Obese: BMI of 30 and above. Please note: Weight includes both fat and muscle, so someone with a muscular build, such as an athlete, may have a BMI that is higher than 24.9. In cases like these, BMI is not an accurate measure of body fat. To determine if excess body fat is the cause of a BMI of 25 or higher, further assessments may need to be done by a health care provider. BMI is usually interpreted in the same way for men and women. Why is BMI a useful tool? BMI is useful in two ways: Identifying a weight problem that may be related to a medical condition, or that may increase the risk for medical problems. Promoting lifestyle and diet changes in order to reach a healthy weight. Summary Body mass index (BMI) is a number that is calculated from a person's weight and height. BMI may help to estimate how much of a person's weight is composed of fat. BMI can help identify those who may be at higher risk for certain medical problems. BMI can be measured using [place] measurements or metric measurements. To interpret your results, your health care provider will use BMI charts to identify whether you are underweight, normal weight, overweight, or obese. This information is not intended to replace advice given to you by your health care provider. Make sure you discuss any questions you have with your health care provider. Document Released: 03/30/2005 Document Revised: 07/01/2018 Document Reviewed: 06/01/2018 [employer] Patient Education 2020 [employer]. 09/23/2022 16:39:29 Attention Deficit Hyperactivity Disorder, Adult Attention Deficit Hyperactivity Disorder, Adult Attention deficit hyperactivity disorder (ADHD) is a mental health disorder that starts during childhood (neurodevelopmental disorder). For many people with ADHD, the disorder continues into the adult years. Treatment can help you manage your symptoms. What are the causes? The exact cause of ADHD is not known. Most experts believe genetics and environmental factors contribute to ADHD. What increases the risk? The following factors may make you more likely to develop this condition: Having a family history of ADHD. Being male. Being born to a mother who smoked or drank alcohol during . Being exposed to lead or other toxins in the womb or early in life. Being born before 37 weeks of (prematurely) or at a low weight. Having experienced a brain injury. What are the signs or symptoms? Symptoms of this condition depend on the type of ADHD. The two main types are inattentive and hyperactive-impulsive. Some people may have symptoms of both types. Symptoms of the inattentive type include: Difficulty paying attention. Making careless mistakes. Not following instructions. Being disorganized. Avoiding tasks that require time and attention. Losing and forgetting things. Being easily distracted. Symptoms of the hyperactive-impulsive type include: Restlessness. Talking too much. Interrupting. Difficulty with: ?Sitting still. ?Feeling motivated. ?Relaxing. ?Waiting in line or waiting for a turn. In adults, this condition may lead to certain problems, such as: Keeping jobs. Performing tasks at work. Having stable relationships. Being on time or keeping to a schedule. How is this diagnosed? This condition is diagnosed based on your current symptoms and your history of symptoms. The diagnosis can be made by a health care provider such as a primary care provider or a mental health rn transitional care. Your health care provider may use a symptom checklist or a behavior rating scale to evaluate your symptoms. He or she may also want to talk with people who have observed your behaviors throughout your life. How is this treated? This condition can be treated with medicines and behavior therapy. Medicines may be the best option to reduce impulsive behaviors and improve attention. Your health care provider may recommend: Stimulant medicines. These are the most common medicines used for adult ADHD. They affect certain chemicals in the brain (neurotransmitters) and improve your ability to control your symptoms. A non-stimulant medicine for adult ADHD (atomoxetine). This medicine increases a neurotransmitter called norepinephrine. It may take weeks to months to see effects from this medicine. Counseling and behavioral management are also important for treating ADHD. Counseling is often used along with medicine. Your health care provider may suggest: Cognitive behavioral therapy (CBT). This type of therapy teaches you to replace negative thoughts and actions with positive thoughts and actions. When used as part of ADHD treatment, this therapy may also include: ?Coping strategies for organization, time management, impulse control, and stress reduction. ?Mindfulness and meditation training. Behavioral management. You may work with a scrum coach who is specially trained to help people with ADHD manage and organize activities and function more effectively. Follow these instructions at home: Medicines Take lyxp-obj-qmjtqoo and prescription medicines only as told by your health care provider. Talk with your health care provider about the possible side effects of your medicines and how to manage them. Lifestyle Do not use drugs. Do not drink alcohol if: ?Your health care provider tells you not to drink. ?You are , may be , or are planning to become . If you drink alcohol: ?Limit how much you use to: ?0 1 drink a day for women. ?0 2 drinks a day for men. ?Be aware of how much alcohol is in your drink. In the [place] one drink equals one 12 oz bottle of beer (355 mL), one 5 oz glass of wine (148 mL), or one 1 oz glass of hard liquor (44 mL). Get enough sleep. Eat a healthy diet. Exercise regularly. Exercise can help to reduce stress and anxiety. General instructions Learn as much as you can about adult ADHD, and work closely with your health care providers to find the treatments that work best for you. Follow the same schedule each day. Use reminder devices like notes, calendars, and phone apps to stay on time and organized. Keep all follow-up visits as told by your health care provider and therapist. This is important. Where to find more information A health care provider may be able to recommend resources that are available online or over the phone. You could start with: Attention Deficit Disorder Association (ADDA): www.add.org National Browns of Mental Health (NIM): www.nimh.nih.gov Contact a health care provider if: Your symptoms continue to cause problems. You have side effects from your medicine, such as: ?Repeated muscle twitches, coughing, or speech outbursts. ?Sleep problems. ?Loss of appetite. ?Dizziness. ?Unusually fast heartbeat. ?Stomach pains. ?Headaches. You are struggling with anxiety, depression, or substance abuse. Get help right away if you: Have a severe reaction to a medicine. If you ever feel like you may hurt yourself or others, or have thoughts about taking your own life, get help right away. You can go to the nearest emergency department or call: Your local emergency services (911 in the [place] A suicide crisis helpline, such as the National Suicide Prevention Lifeline at . This is open 24 hours a day. Summary ADHD is a mental health disorder that starts during childhood (neurodevelopmental disorder) and often continues into the adult years. The exact cause of ADHD is not known. Most experts believe genetics and environmental factors contribute to ADHD. There is no cure for ADHD, but treatment with medicine, cognitive behavioral therapy, or behavioral management can help you manage your condition. This information is not intended to replace advice given to you by your health care provider. Make sure you discuss any questions you have with your health care provider. Document Released: 03/10/2018 Document Revised: 12/11/2019 Document Reviewed: 12/11/2019 [email or web address] Patient Education 2020 [employer]. Follow Up Care 09/17/2022 12:43:24 With:Espinoza HARDEN, Jory Owusu Address: Augie Tamayo, [place] [address]- When:Within 3 Month(s) Comments:f/u [facility] 07-25-2022 Hospital Discharg e instructions Patient Education 07/24/2022 23:42:28 Nausea and Vomiting, Adult, Ipcn-gk-Epoo Nausea and Vomiting, Adult Nausea is feeling sick to your stomach or feeling that you are about to throw up (vomit). Vomiting is when food in your stomach is thrown up and out of the mouth. Throwing up can make you feel weak. It can also make you lose too much water in your body (get dehydrated). If you lose too much water in your body, you may: Feel tired. Feel thirsty. Have a dry mouth. Have cracked lips. Go pee (urinate) less often. Older adults and people with other diseases or a weak body defense system (immune system) are at higher risk for losing too much water in the body. If you feel sick to your stomach and you throw up, it is important to follow instructions from your doctor about how to take care of yourself. Follow these instructions at home: Watch your symptoms for any changes. Tell your doctor about them. Follow these instructions to care for yourself at home. Eating and drinking Take an ORS (oral rehydration solution). This is a drink that is sold at pharmacies and stores. Drink clear fluids in small amounts as you are able, such as: ?Water. ?Ice chips. ?Fruit juice that has water added (diluted fruit juice). ?Low-calorie sports drinks. Eat bland, ofoh-lh-zhzjmv foods in small amounts as you are able, such as: ?Bananas. ?Applesauce. ?Rice. ?Low-fat (lean) meats. ?Diamond Bar. ?Crackers. Avoid drinking fluids that have a lot of sugar or caffeine in them. This includes energy drinks, sports drinks, and soda. Avoid alcohol. Avoid spicy or fatty foods. General instructions Take atso-qtg-oyvaowt and prescription medicines only as told by your doctor. Drink enough fluid to keep your pee (urine) pale yellow. Wash your hands often with soap and water. If you cannot use soap and water, use hand exchange clerk. Make sure that all people in your home wash their hands well and often. Rest at home while you get better. Watch your condition for any changes. Take slow and deep breaths when you feel sick to your stomach. Keep all follow-up visits as told by your doctor. This is important. Contact a doctor if: Your symptoms get worse. You have new symptoms. You have a fever. You cannot drink fluids without throwing up. You feel sick to your stomach for more than 2 days. You feel light-headed or dizzy. You have a headache. You have muscle cramps. You have a rash. You have pain while peeing. Get help right away if: You have pain in your chest, neck, arm, or jaw. You feel very weak or you pass out (faint). You throw up again and again. You have throw up that is bright red or looks like black coffee grounds. You have bloody or black poop (stools) or poop that looks like tar. You have a very bad headache, a stiff neck, or both. You have very bad pain, cramping, or bloating in your belly (abdomen). You have trouble breathing. You are breathing very quickly. Your heart is beating very quickly. Your skin feels cold and clammy. You feel confused. You have signs of losing too much water in your body, such as: ?Dark pee, very little pee, or no pee. ?Cracked lips. ?Dry mouth. ?Sunken eyes. ?Sleepiness. ?Weakness. These symptoms may be an emergency. Do not wait to see if the symptoms will go away. Get medical help right away. Call your local emergency services (911 in the [place] Do not drive yourself to the hospital. Summary Nausea is feeling sick to your stomach or feeling that you are about to throw up (vomit). Vomiting is when food in your stomach is thrown up and out of the mouth. Follow instructions from your doctor about eating and drinking to keep from losing too much water in your body. Take ngso-wfp-npfmrmh and prescription medicines only as told by your doctor. Contact your doctor if your symptoms get worse or you have new symptoms. Keep all follow-up visits as told by your doctor. This is important. This information is not intended to replace advice given to you by your health care provider. Make sure you discuss any questions you have with your health care provider. Document Released: 01/04/2009 Document Revised: 11/10/2019 Document Reviewed: 12/27/2018 [employer] Patient Education 2020 [employer]. 07/24/2022 23:42:28 Diarrhea, Adult, Esuh-gp-Vyrl Diarrhea, Adult Diarrhea is when you pass loose and watery poop (stool) often. Diarrhea can make you feel weak and cause you to lose water in your body (get dehydrated). Losing water in your body can cause you to: Feel tired and thirsty. Have a dry mouth. Go pee (urinate) less often. Diarrhea often lasts 2 3 days. However, it can last longer if it is a sign of something more serious. It is important to treat your diarrhea as told by your doctor. Follow these instructions at home: Eating and drinking Follow these instructions as told by your doctor: Take an ORS (oral rehydration solution). This is a drink that helps you replace fluids and minerals your body lost. It is sold at pharmacies and stores. Drink plenty of fluids, such as: ?Water. ?Ice chips. ?Diluted fruit juice. ?Low-calorie sports drinks. ?Milk, if you want. Avoid drinking fluids that have a lot of sugar or caffeine in them. Eat bland, gilq-tw-agyduy foods in small amounts as you are able. These foods include: ?Bananas. ?Applesauce. ?Rice. ?Low-fat (lean) meats. ?Diamond Bar. ?Crackers. Avoid alcohol. Avoid spicy or fatty foods. Medicines Take ykaf-kwz-vbtittg and prescription medicines only as told by your doctor. If you were prescribed an antibiotic medicine, take it as told by your doctor. Do not stop using the antibiotic even if you start to feel better. General instructions Wash your hands often using soap and water. If soap and water are not available, use a hand exchange clerk. Others in your home should wash their hands as well. Hands should be washed: ?After using the toilet or changing a diaper. ?Before preparing, cooking, or serving food. ?While caring for a sick person. ?While visiting someone in a hospital. Drink enough fluid to keep your pee (urine) pale yellow. Rest at home while you get better. Watch your condition for any changes. Take a warm bath to help with any burning or pain from having diarrhea. Keep all follow-up visits as told by your doctor. This is important. Contact a doctor if: You have a fever. Your diarrhea gets worse. You have new symptoms. You cannot keep fluids down. You feel light-headed or dizzy. You have a headache. You have muscle cramps. Get help right away if: You have chest pain. You feel very weak or you pass out (faint). You have bloody or black poop or poop that looks like tar. You have very bad pain, cramping, or bloating in your belly (abdomen). You have trouble breathing or you are breathing very quickly. Your heart is beating very quickly. Your skin feels cold and clammy. You feel confused. You have signs of losing too much water in your body, such as: ?Dark pee, very little pee, or no pee. ?Cracked lips. ?Dry mouth. ?Sunken eyes. ?Sleepiness. ?Weakness. Summary Diarrhea is when you pass loose and watery poop (stool) often. Diarrhea can make you feel weak and cause you to lose water in your body (get dehydrated). Take an ORS (oral rehydration solution). This is a drink that is sold at pharmacies and stores. Eat bland, zzje-ud-zflhin foods in small amounts as you are able. Contact a doctor if your condition gets worse. Get help right away if you have signs that you have lost too much water in your body. This information is not intended to replace advice given to you by your health care provider. Make sure you discuss any questions you have with your health care provider. Document Released: 01/04/2009 Document Revised: 12/23/2018 Document Reviewed: 12/23/2018 [employer] Patient Education 2020 [employer]. Follow Up Care 07/24/2022 20:30:40 With:Elina Jena Address: [address] [place] [address]- Business (1) When:07/27/2022 Comments:You can use the Zofran, Bentyl as prescribed as needed for pain and nausea. Please follow-up with your primary care doctor in the next 2 to 3 days. Please return to the ED for any new or worsening symptoms. [facility] 07-24-2022 Evaluation + Plan note Extrac dewayne from: Title:ED Note Author:Jessica Lua DO Date :07/24/22 Diarrhea (R19.7: Diarrhea, u nspecified) Nausea and vomiting (R11.2: Nausea with vomiting, unspecified) Orders: Al hydroxide/Mg hydroxide/simethicone, 30 mL, Susp-Oral, Oral, Once, Stop date 07/24/22 21:09:00 EST, STAT, Start date 07/24/22 21:09:00 EST atropine/hyoscyamine/PB/scopolamine, 10 mL, Elixir, Oral, Once, Stop date 07/24/22 21:09:00 EST, STAT, Start date 07/24/22 21:09:00 EST dicyclomine, 20 mg = 2 mL, Injection, IntraMuscular, Once, Stop date 07/24/22 21:08:00 EST, STAT, Start date 07/24/22 21:08:00 EST, 07/24/22 21:08:00 EST dicyclomine, 10 mg = 1 cap(s), Oral, QID, X 7 day(s), # 14 cap(s), Refills(s) 0 lidocaine topical, 200 mg, 10 mL, Soln-Oral, Oral, Once, Stop date 07/24/22 21:09:00 EST, STAT, Start date 07/24/22 21:09:00 EST ondansetron, 4 mg = 2 mL, Injection, IV Push, Once, Stop date 07/24/22 20:46:00 EST, STAT, Start date 07/24/22 20:46:00 EST, 07/24/22 20:46:00 EST ondansetron, 4 mg = 1 tab(s), Tab-Dis, Oral, Once, Stop date 07/24/22 22:31:00 EST, STAT, Start date 07/24/22 22:31:00 EST, 07/24/22 22:31:00 EST ondansetron, 4 mg = 1 tab(s), Oral, q8hr, # 12 tab(s), Refills(s) 0 pantoprazole, 40 mg = 10 mL, Injection, IV Push, Once, Stop date 07/24/22 21:09:00 EST, STAT, Start date 07/24/22 21:09:00 EST, 07/24/22 21:09:00 EST Sodium Chloride 0.9% intravenous solution, Soln-IV, Misc, Once, Stop date 07/24/22 20:53:27 EST, Physician Stop, 07/24/22 20:53:27 EST Sodium Chloride 0.9% intravenous solution, 1,000 mL, Soln-IV, IV, Once, Stop date 07/24/22 20:46:00 EST, STAT, Start date 07/24/22 20:46:00 EST, Infuse over 61, minute(s) Sodium Chloride 0.9% intravenous solution 1,000 mL, 1,000 mL, IV, 983.61 mL/hr, for 30 day(s), Stop date 08/23/22 21:13:00 EST, STAT, Start date 07/24/22 21:14:00 EST, 61 minute(s), Total volume (mL): 1,000, 79.2 kg, 1.92, m2 Automated Diff Basic Metabolic Panel Beta hCG Qual CBC w/ Auto Diff eGFR Hepatic Function Panel Lipase Level UA With Cult Reflex Urine Culture US Abdomen, Limited Diagnostic Tests Pending * Urine Culture [facility] No data available for this section [facility] Future App[facility]ments Appointment Date:04/30/2023 07:00:00 AM Scheduled Provider:Jory Monet Location:[facility] Appointment Type: Open Future Scheduled Tests Laboratory* TSH With T4fr Reflex 01/19/23 * CBC w/ Auto Diff 01/19/23 * Comprehensive Metabolic Panel 01/19/23 * Lipid Panel [facility]19/23 [facility] Future Appointments Appointment Date:07/30/2023 07:00:00 AM Scheduled Provider:Jory Monet Location:[facility] Appointment Type:FM Open Future Scheduled Tests Laboratory* TSH With T4fr Reflex 01/19/23 * CBC w/ Auto Diff 01/19/23 * Comprehensive Metabolic Panel 01/19/23 * Lipid Panel 01/19/23 [facility] Evaluation + Plan note Future Appointments Appointment Date:07/16/2023 09:20:00 AM Scheduled Provider:Jory Monet Location:[facility] Appointment Type:FM Open Future Scheduled Tests Laboratory* TSH With T4fr Reflex 01/19/23 * CBC w/ Auto Diff 01/19/23 * Comprehensive Metabolic Panel 01/19/23 * Lipid Panel 01/19/23 [facility]ments Appointment Date:10/05/2023 09:20:00 AM Scheduled Provider:Jory Monet Location:[facility] Appointment Type:FM Open Future Scheduled Tests Laboratory* TSH With T4fr Reflex 01/19/23 * CBC w/ Auto Diff 01/19/23 * Comprehensive Metabolic Panel 01/19/23 * Lipid Panel [facility]/19/23 [facility] Future Appointments Appointment Date:10/05/2023 09:20:00 AM Scheduled Provider:Jory Monet Location:[facility] Appointment Type: Open Diagnostic Tests Pending * AFP Maternal 09/03/23 Future Scheduled Tests Laboratory* TSH With T4fr Reflex 01/19/23 * CBC w/ Auto Diff 01/19/23 * Comprehensive Metabolic Panel 01/19/23 * Lipid [facility] No data available for this section [facility] No data available for this section [facility] Summary Purpose Family History No Family History Records Found Advance Directives No Advanced Directives Records FoundNo Advanced Directives Records Found Additional Source Comments Patient Care team informatio n (unrecognized section and content) Personnel Name: Elina Jean MD Address: Address: [address] [place] Personnel Name: Elina Jean MD Address: Address: [address] [place], [address] Personnel Name: aniket ARMASLanJory Address: Address: [address], [address] Personnel Name: Espinoza HARDENJory Address: Address: [address], [address] Personnel Name: Espinoza HARDENJory Address: Address: [address], [address] Personnel Name: Espinoza HARDENJory Address: Address: [address], [facility] [address] Personnel Name: Espinoza HARDENJory Address: Address: [address], [address] Personnel Name: Espinoza HARDENJory Address: Address: [address], [facility] [address] Personnel Name: Espinoza HARDENJory Address: Address: [address], [address] Personnel Name: Espinoza HARDENJory Address: Address: [address], [address] Personnel Name: Espinoza HARDENJory Address: Address: [address], [address] Personnel Name: Espinoza HARDENJory Address: Address: [address], [address] Personnel Name: Espinoza HARDENJory Address: Address: [address], [facility] [address] INFORMATION SOURCE (unrecogn ized section and content) DATE CREATED AUTHOR 08/23/2023 [facility] EPIC DATE CREATED AUTHOR AUTHOR'S CHRISTOPHER ATION 09/09/2023 [facility] FOR RECORDS PERTAINING TO PATIENTS WHO ARE OR HAVE BEEN ENROLLED IN A CHEMICAL DEPENDENCY/SUBSTANCEABUSE PROGRAM, SOME INFORMATION MAY BE OMITTED. This clinical summary was aggregated from multiple sources. Caution should be exercised in using it in the provision of clinical care. This summary normalizes information from multiple sources, and as a consequence, information in this document may materially change the coding, format and clinical context of patient data. In addition, data may be omitted in some cases. CLINICAL DECISIONS SHOULD BE BASED ON THE PRIMARY CLINICAL RECORDS. [facility]. provides no warranty or guarantee of the accuracy or completeness of information in this document.
== END 2023-09-23 08:28 | disposition home or self-care (01) ==
LOC: NOMS 08:27
PROVIDERS: Visit Provider Obstetrics & Gynecology
DX: Z36.89 Encounter for other specified antenatal screening (principal); Z3A.21 21 weeks gestation of pregnancy; O44.42 Low lying placenta NOS or without hemorrhage, second trimester
CPT/HCPCS: 76805; 76817

== ENCOUNTER 2023-11-04 07:23 | Outpatient (OUT) | payer BC, SELFPAY ==
--- OUTSIDE RECORDS SUMMARY | 2023-11-04 07:25 | XMS_ITS | CCD ---
Author Organization [facility] Care Team Providers Care Corporate Bond Trader Name Role Phone Elina Jean Primary Care Physician Jory Doran Primary Care Physician [phone] RITA SALINAS Attending Unavailable MIRLANDE BLAIR Attending Unavailable MIRLANDE BLAIR Attending Unavailable EDGARD, MIRLANDE Attending Unavailable DIMITRI BARILLAS DO Admitting Unavailable ERAN VELEZ, DIMITRI Attending Unavailable Oren Mohamud Attending Unavailable Jory Doran Attending Unavailab le Missler, Jory Owusu Attending Unavailab Narcisa Brenner Attending Unavailable MisslerJory Attending Unavailab le Missler, Jory Owusu Attending Unavailab le Missler, Jory Owusu Attending Unavailab le Missler, Jory Owusu Attending Unavailab le DIMITRI BARILLAS DO Admitting Unavailable DIMITRI BARILLAS DO Attending Unavailable EDGARD, Mirlande R Attending Unavailable EDGARD, Mirlande R Admitting Unavailable EDGARD, Mirlande R Attending Unavailable EDGARD, Mirlande R Admitting Unavailable RITA SALINAS Admitting Unavailable RITA SALINAS Attending Unavailable Rik Crespo Attending Unavailable EDGARD Mirlande R Attending Unavailable EDGARD, Mirlande R Referring Unavailable EDGARD, Mirlande R Admitting Unavailable EDGARD, Mirlande R Attending Unavailable EDGARD, Mirlande R Admitting Unavailable Allergies Allergy Classification Reported Allergen(s) Allergy Type Date of Onset Reaction(s) Facility (18 sources) atomoxetine; Translations: [atomoxetine] Drug Allergy Drug-induced acute pancreatitis (disorder) [facility] Medications Current Medications Medication Drug Class(es) Dates Sig (Normalized) Sig (Original) 24 hr amphetamine aspartate 1.25 mg / amphetamine sulfate 1.25 mg / dextroamphetamine saccharate 1.25 mg / dextroamphetamine sulfate 1.25 mg extended release oral capsule (17 sources) Central Nervous System Stimulant Start: 09-28-2023 Adderall XR 5 mg oral capsule, extended release 5 mg, 1 cap(s), Oral, qAM, 30 cap(s), Refill(s) 0 Start Date: 09/28/23 Status: Ordered Start: 08-25-2023 Adderall XR 5 mg oral [...] Ordered levocetirizine dihydrochloride 5 mg oral tablet (15 sources) Histamine-1 Receptor Antagonist Start: 09-23-2022 Xyzal 5 mg oral tablet Refill(s) 0 Start Date: 09/23/22 Status: Ordered Multivitamin preparation (15 sources) Start: 09-23-2022 multivitamin Refill(s) 0 Start [...] Episodic/Chronic Attention-deficit, conduct, and disruptive behavior disorders (20 sources) Attention deficit hyperactivity disorder; Translations: [Attention-deficit hyperactivity disorder, unspecified type] Onset: 09-18-2022 05-25-2010 Chronic Chronic obstructive pulmonary disease and bronchiectasis (4 sources) Bronchitis; Translations: [Bronchitis, not specified as acute or chronic] Onset: 03-15-2023 Episodic Influenza (1 source) Influenza; Translations: [Influenza due to other identified influenza virus with other respiratory manifestations] Onset: 10-25-2023 Episodic Mood disorders (4 sources) Depressive disorder 03-02-2017 Chronic Nausea and vomiting (1 source) Nausea and vomiting; Translations: [Nausea with vomiting, unspecified] Onset: 07-24-2022 Episodic Other aftercare (4 sources) Long-term current use of drug therapy; Translations: [Other usp (current) drug therapy] Onset: 01-19-2023 Episodic Other gastrointestinal disorders (1 source) Diarrhea; Translations: [Diarrhea, unspecified] Onset: 07-24-2022 Episodic Other gastrointestinal disorders (1 source) Constipation, unspecified; Translations: [Constipation, unspecified] Onset: 07-07-2023 Episodic Other nutritional; endocrine; and metabolic disorders (1 source) Obesity; Translations: [Other obesity] Onset: 09-23-2022 Chronic Other nutritional; endocrine; and metabolic disorders (2 sources) Obese class I; Translations: [Body mass index (BMI) 31.0-31.9, adult] Onset: 10-04-2023 Chronic Other nutritional; endocrine; and metabolic disorders (3 sources) Body mass index 30+ - obesity 10-04-2023 Chronic Other nutritional; endocrine; and metabolic disorders (13 sources) Overweight in adulthood with body mass index of 25 or more but less than 30; Translations: [Body mass index (BMI) 27.0-27.9, adult] Onset: 09-23-2022 Episodic Other nutritional; endocrine; and metabolic disorders (12 sources) Overweight; Translations: [Overweight] Onset: 01-19-2023 Episodic Other upper respiratory disease (15 sources) Seasonal allergic rhinitis 09-23-2022 Chronic Pancreatic disorders (not diabetes) (4 sources) Pancreatitis 10-13-2013 Episodic Residual codes; unclassified (2 sources) Gestation period, 12 weeks 07-09-2023 Episodic Residual codes; unclassified (4 sources) Gestation period, 24 weeks; Translations: [24 weeks gestation of ] Onset: 09-27-2023 Episodic Residual codes; unclassified (1 source) Other general symptoms and signs; Translations: [Other general symptoms and signs] Onset: 10-25-2023 Episodic Unclassified (13 sources) Drug therapy finding 01-19-2023 Unclassified (4 sources) Patient encounter status 01-19-2023 Past or Other Problems Problem Classification Problem Date Documented Da te Episodic/Chronic Fluid and electrolyte disorders (2 sources) Dehydration Onset: 03-06-2012 10-13-2013 Episodic Results Test Name Value Interpretation Reference Range Facility Family Medicine Office/Clini c Noteon 10-26-2023 Family Medicine Office/Clinic Note Chief Complaint Current pt cough, bodyaches, headache, fever, chills, sinus congestion, fatigue HPI Staff 32 yo female here with fever, bodyaches Symptoms began yesterday Complains of fever, bodyaches, sinus congestion, neck pain, jaw pain, cough, sore throat for 1 day, fatigue, ear pain, fever 100, chills Pt is 26 wks Pt has taken tylenol cold Daughter has ear infection History of Present Illness I have reviewed and verified the staff HPI to be accurate for this encounter. Portions of this record have been created with voice recognition software. Occasional wrong-word or ?eymtj-s-lhah? substitutions may have occurred due to the inherent limitations of voice recognition software. 32-year-old female who is currently 26 weeks ,1 living child 1 prior spontaneous miscarriage presents today with chief complaint of fever and body aches. States onset of symptoms started yesterday. States sinus congestion neck and jaw pain cough sore throat x 1 day just feeling rundown also states ear pain low-grade temp of 100 with chills. She has taken Tylenol cold and flu. States her daughter is currently being treated for an ear infection. Patient states she was actually seen by her OB this morning for an appointment and follow-up ultrasound. Patient states that he offered to have her come back to the office to be swabbed for influenza however she did not feel like driving back to [place]. Came in for further evaluation today. Symptoms started around 6 PM last evening but woke up feeling worse this morning and throughout the day increase in body aches states her heart rate was elevated in office today. States she has taken Tylenol for body aches but states she really woke up around 1 AM and after that had not been back to sleep. Patient is febrile upon arrival 100.5 in which she states she is due for another dose of Tylenol. Discussed that fever can increase heart rate. She has been able to tolerate fluids but states lack of appetite. She denies any sick contacts at home. She denies any influenza exposure. States her and daughter had COVID-19 about 4 weeks ago which she states she did not get thought. She denies any abdominal pain nausea vomiting or diarrhea. She states runny stuffy nose and dry cough. Denies any chest pain shortness of breath or difficulty breathing with cough. States some left-sided ear pain and pressure with her nasal congestion. She has no other concerns at this time. Review of Systems PHQ Score Initial Depression Screen Score: 0 SCORE ROS negative unless otherwise stated in HPI. Physical Exam Vitals & Measurements T: 38 ?C(Oral) HR: 139(Peripheral) BP: 116/76 SpO2: 98% HT: 66 in HT: 168 cm WT: 91.9 kg WT: 202.18 lb BMI: 32.56 General: Very pleasant young female, no acute distress Eyes: Bilateral conjunctiva within normal limits no injection Ears: bilateral TMs are within normal limits no erythema or bulging. Bilateral external auditory canals are within normal limits no erythema or edema. Nose: mild nasal mucosa inflammation and edema no active nasal drainage no deformities or lesions Mouth: Moist mucous membranes. Uvula is midline. No acute tonsillar erythema edema or exudates. No signs of peritonsillar abscess. No trismus or drooling. Neck: no adenopathy Lungs: Lung sounds are clear bilaterally. No wheezing rhonchi or crackles on exam. Cardio: S1, S2, tachycardic, regular rhythm. No murmurs gallops or rubs. Abdomen: abdomen Musculoskeletal: not assessed Extremity: Patient walked back into convenient care on her own without gait abnormality. Neurologic: not assessed Skin: not assessed Mental Status: Alert and oriented x3. Normal mood and affect Assessment/Plan Patient tested positive for influenza A in the office. I updated her in regards to this positive result. Discussed with patient close follow-up with [facility] she should contact their office to discuss treatment with Tamiflu. Also discussed ojky-ylc-hvplqpc medications that may be of benefit discussed continuation of mqfw-smk-ivssqna Tylenol as needed for body aches or fever and when she should take another dose of Tylenol and returning home continue fluids rest hydration. Discussed notes any chest pain shortness of breath or difficulty breathing she should seek ER for reevaluation in which patient agrees and understands plan. 1. Influenza A (J10.1: Influenza due to other identified influenza virus with other respiratory manifestations) Tested at patient's request. Rapid influenza test POSITIVE Flu A. Discussed viral nature of illness and typical duration- the worst (fever, body aches) is usually the first 3-5 days with cold symptoms lasting 7-14 days typically. Advised inside of the tamiflu window. Advised of possible benefits (shortening duration of illness by about 24 hours, possibly less severe illness) vs possible risks/side effects including temporary altered mental status. Discussed that I would like her to speak with her (more content not included)... [facility] Comment on above: Result Comment: Elec tronically Signed By: Cade MILLER, Oren De La Fuente\.br\Date and Time Signed: 10/26/23 12:53 EDT Patient Educationon 10-26-19 Patient Education Infectious Disease Influenza, Adult Influenza, also called the flu, is a viral infection that mainly affects the respiratory tract. This includes the lungs, nose, and throat. The flu spreads easily from person to person (is contagious). It causes common cold symptoms, along with high fever and body aches. What are the causes? This condition is caused by the influenza virus. You can get the virus by: ? Breathing in droplets that are in the air from an infected person's cough or sneeze. ? Touching something that has the virus on it (has been contaminated) and then touching your mouth, nose, or eyes. What increases the risk? The following factors may make you more likely to get the flu: ? Not washing or sanitizing your hands often. ? Having close contact with many people during cold and flu season. ? Touching your mouth, eyes, or nose without first washing or sanitizing your hands. ? Not getting an annual flu shot. You may have a higher risk for the flu, including serious problems, such as a lung infection (pneumonia), if you: ? Are older than 65. ? Are . ? Have a weakened disease-fighting system (immune system). This includes people who have HIV or AIDS, are on chemotherapy, or are taking medicines that reduce (suppress) the immune system. ? Have a long-term (chronic) illness, such as heart disease, kidney disease, diabetes, or lung disease. ? Have a liver disorder. ? Are severely overweight (morbidly obese). ? Have anemia. ? Have asthma. What are the signs or symptoms? Symptoms of this condition usually begin suddenly and last 4?14 days. These may include: ? Fever and chills. ? Headaches, body aches, or muscle aches. ? Sore throat. ? Cough. ? Runny or stuffy (congested) nose. ? Chest discomfort. ? Poor appetite. ? Weakness or fatigue. ? Dizziness. ? Nausea or vomiting. How is this diagnosed? This condition may be diagnosed based on: ? Your symptoms and medical history. ? A physical exam. ? Swabbing your nose or throat and testing the fluid for the influenza virus. How is this treated? If the flu is diagnosed early, you can be treated with antiviral medicine that is given by mouth (orally) or through an IV. This can help reduce how severe the illness is and how long it lasts. Taking care of yourself at home can help relieve symptoms. Your health care provider may recommend: ? Taking exkd-axm-vnrlqms medicines. ? Drinking plenty of fluids. In many cases, the flu goes away on its own. If you have severe symptoms or complications, you may be treated in a hospital. Follow these instructions at home: Activity ? Rest as needed and get plenty of sleep. ? Stay home from work or school as told by your health care provider. Unless you are visiting your health care provider, avoid leaving home until your fever has been gone for 24 hours without taking medicine. Eating and drinking ? Take an oral rehydration solution (ORS). This is a drink that is sold at pharmacies and retail stores. ? Drink enough fluid to keep your urine pale yellow. ? Drink clear fluids in small amounts as you are able. Clear fluids include water, ice chips, fruit juice mixed with water, and low-calorie sports drinks. ? Eat bland, fqwm-vc-ykwoil foods in small amounts as you are able. These foods include bananas, applesauce, rice, lean meats, toast, and crackers. ? Avoid drinking fluids that contain a lot of sugar or caffeine, such as energy drinks, regular sports drinks, and soda. ? Avoid alcohol. ? Avoid spicy or fatty foods. General instructions ? Take hdoj-mzs-zqvzkty and prescription medicines only as told by your health care provider. ? Use a cool mist humidifier to add humidity to the air in your home. This can make it easier to breathe. ? When using a cool mist humidifier, clean it daily. Empty the water and replace it with clean water. ? Cover your mouth and nose when you cough or sneeze. ? Wash your hands with soap and water often and for at least 20 seconds, especially after you cough or sneeze. If soap and water are not available, use alcohol-based hand brake machine operator. ? Keep all follow-up visits. This is important. How is this prevented? ? Get an annual flu shot. This is usually available in late summer, fall, or winter. Ask your health care provider when you should get your flu shot. ? Avoid contact with people who are sick during cold and flu season. This is generally fall and winter. Contact a health care provider if: ? You develop new symptoms. ? You have: ? Chest pain. ? Diarrhea. ? A fever. ? Your cough gets worse. ? You produce more mucus. ? You feel nauseous or you vomit. Get help right away if you: ? Develop shortness of breath or have difficulty breathing. ? Have skin or nails that turn a bluish color. ? Have severe pain or stiffness in your neck. ? Deve (more content not included)... [facility] Ambulatory Visit Summaryon 0 10-25-2023 Ambulatory Visit Summary JOSIE TOMLIN :1990 Visit Date:10/25/2023 Ambulatory Visit Instructions Your Diagnosis Influenza A BMI 32.0-32.9,adult Flu-like symptoms Your Care Team Attending Physician - Oren Mohamud PA-C Primary Care Physician - Jory Monet This Is Your Medications List Contact prescribing physician if questions or concerns amphetamine-dextroam phetamine (Adderall XR 5 mg oral capsule, extended release) levocetirizine (Xyzal 5 mg oral tablet) multivitamin Procedures Performed Pap smear and HPV cotesting (12/2021), Colonoscopy (2009), Maxillary sinus endoscopy with removal of cyst. Discharge Vitals Temperature (Oral) 38 ?C Heart Rate (Peripheral) 139 Blood Pressure 116/76 Height 168 cm Height 66 in Weight 91.9 kg Weight 202.18 lb BMI 32.56 What to do next Scheduled Follow-Up Appointments Wednesday 8:00 AM EDT With: Jory Monet Where: [facility] Primary Care [facility] US Follow Upon US Follow Up Exam Date/Time: 10/21/2023 09:34 EDT Reason for Exam: O44.40 Low lying placenta NOS or without hemorrhage, unspecified trimester Report IMPRESSION: SINGLE LIVE INTRAUTERINE CORRESPONDING TO APPROXIMATELY Composite Ultrasound Age: 25 weeks, 3 days. NO EVIDENCE OF PLACENTA PREVIA OR OTHER GROSS ABNORMALITY IDENTIFIED, WITHIN THE LIMITS OF THE STUDY. EXAM: US Follow Up DATE: 10/21/2023 8:55 AM CLINICAL HISTORY: O44.40 Low lying placenta NOS or without hemorrhage, unspecified trimester. Gestational Age by LMP: 25 weeks, 2 days COMPARISON: None available for this . Transabdominal ultrasound of the gravid uterus was performed. FINDINGS: A single live intrauterine is noted in breech position. cardiac activity is measured at 150 bpm. The cervix is closed, measuring approximately 4.4 cm in longitudinal length. PLACENTA: A grade 0-appearing placenta is anterior without evidence of placenta previa. The inferior placental margin measures approximately 3 cm from the internal cervical os. The amniotic fluid volume appears within normal limits for gestation. Amniotic Fluid Index: 16.8 cm MEASUREMENTS: The following measurements were obtained: * Biparietal Diameter: 6.4 cm with the Growth Percentile Rank: 58.0 Percent * Head Circumference: 23.3 cm with the Growth Percentile Rank: 29.0 Percent * Abdominal Circumference: 21.3 cm with the Growth Percentile Rank: 57.0 Percent * Femur Length: 4.4 cm with the Growth Percentile Rank: 13.0 Percent * which corresponds to Composite Ultrasound Age: 25 weeks, 3 days. ESTIMATED WEIGHT: Estimated Weight: 784.7 (grams) Report Estimated Weight: 1lbs 11.7ozs (lbs/oz) EFW growth percentile rank: 36 (Percent) EFW LMP Percentile: 36.8 (Percent) A full anatomy survey was not performed. Ordering Provider: Mirlande BLAIR FINAL REPORT Dictated: 10/22/2023 1:32 pm Ramon West MD Signed (Electronic Signature): 10/22/2023 1:32 pm Signed by: Ramon West MD Transcribed by: KALI Technologist: JAY Technical Comments RONALDO 02/01/24 History 3 Para 1 SAB 1 Transabdominal Ultrasound Performed FHR (bpm) 150 Cervical Length (cm) 4.4 Placenta Grade 0 Positioning Breech Amniotic Fluid Volume ALFREDO (cm) 16.8 Normal [facility] Consent for Treatmenton 10-01 Consent for Treatment [id number] #1.00TIFF [facility] RAD - MISCon 10-20-2023 RAD - MISC [id number]#1.00TIFF [facility] Physician Orderon 10-18-2023 Physician Order [id number] #1.00TIFF [facility] Medication Consenton 024 Medication Consent [id number] #1.00TIFF [facility] Ambulatory Visit Summaryon 0 10-04-2023 Ambulatory Visit Summary JOSIE TOMLIN :1990 Visit Date:10/04/2023 Ambulatory Visit Instructions Your Diagnosis 24 weeks gestation of ADHD - Attention deficit disorder with hyperactivity High risk medication use BMI 31.0-31.9,adult Your Care Team Attending Physician - Jory Mnoet Primary Care Physician - Jory Monet This Is Your Medications List Contact prescribing physician if questions or concerns amphetamine-dextroam phetamine (Adderall XR 5 mg oral capsule, extended release) levocetirizine (Xyzal 5 mg oral tablet) multivitamin Procedures Performed Pap smear and HPV cotesting (12/2021), Colonoscopy (2009), Maxillary sinus endoscopy with removal of cyst. Discharge Vitals Temperature (Oral) 37.1 ?C Heart Rate (Peripheral) 88 Blood Pressure 122/64 Height 168 cm Height 66 in Weight 88.6 kg Weight 194.92 lb BMI 31.39 What to do next You Need to Schedule the Following Appointments Follow Up with Jory Monet When: In 3 months Comments: f/u ADHD, med recheck Where: [address], [place] [address]- Medications What How Much When Why Instructions Unchanged amphetamine-dextroam phetamine (Adderall XR 5 mg oral capsule, extended release) 1 Capsules By Mouth Once a day (in the morning) ADHD - Attention deficit disorder with hyperactivity Contact prescribing physician if questions or concerns Unchanged levocetirizine (Xyzal 5 mg oral tablet) Contact prescribing physician if questions or concerns Unchanged multivitamin Contact prescribing physician if questions or concerns Allergies Strattera (Drug-induced acute pancreatitis) Problems Ongoing - Any problem that you are currently receiving treatment for. 24 weeks gestation of ADHD - Attention deficit disorder with hyperactivity BMI 31.0-31.9,adult High risk medication use Seasonal allergic rhinitis Patient Survey You may receive a survey via text or e-mail asking about your office visit. Please share your experience with us by completing your survey. We appreciate your feedback and thank you for choosing us for your care. Education Materials Basics of Medicine Management Taking your medicines correctly is an important part of managing or preventing medical problems. Make sure you know what disease or condition your medicine is treating, and how and when to take it. If you do not take your medicine correctly, it may not work well and may cause unpleasant side effects, including serious health problems. What should I do when I am taking medicines? ? Read all the labels and inserts that come with your medicines. Review the information often and with each refill. ? Talk with your pharmacist if you get a refill and notice a change in the size, color, or shape of your medicines. ? Know the potential side effects for each medicine that you take. ? Try to get all your medicines from the same pharmacy. The pharmacist will have all your information and will understand how your medicines will affect each other (interact). ? Always carry an updated list of your medicines with you. If there is an emergency, a vp software support can quickly see what medicines you are taking. ? Tell your health care provider about all your medicines, including mspk-igj-cksbpoy medicines, vitamins, and herbal or dietary supplements. Your health care provider will make sure that nothing will interact with any of your prescribed medicines. How can I take my medicines safely? ? Take medicines only as told by your health care provider. ? Do not take more of your medicine than instructed. ? Do not take anyone else's medicines. ? Do not share your medicines with others. ? Do not stop taking your medicines unless your health care provider tells you to do so. ? You may need to avoid alcohol or certain foods or liquids when taking certain medicines. Follow your health care provider's instructions. ? Do not split, cut, crush, or chew your medicines unless your health care provider tells you to do so. Tell your health care provider if you have trouble swallowing your medicines. ? For liquid medicine, use the dosing container that was provided. Household spoons are not accurate. How should I organize my medicines? Know your medicines ? Know what each of your medicines looks like. This includes size, color, and shape. Tell your health care provider if you are having trouble recognizing all the medicines that you are taking. ? If you cannot tell your medicines apart because they look similar, keep them in the original bottles. ? If you cannot read the labels on the bottles, tell your pharmacist to put your medicines in containers with large print. ? Review your medicines and your schedule with family members, a friend, or a caregiver. Use a pill organizer ? (more content not included)... [facility] Family Medicine Office/Clini c Noteon 10-04-2023 Family Medicine Office/Clinic Note Chief Complaint pt here for 3 month f/u. HPI Staff Last routine labs: 07/24/22 smoker status: never Pap (21-64yo): utd due for med agreement. History of Present Illness Josie is a 32 yo female presenting today for 3 mo f/u Pt is currently 24? weeks - due 02/03/24 Pt has placenta previa - doing US p7cynmf for monitoring ADHD f/u: Symptoms are present in more [...] SCORE Physical Exam Vitals & Measurements T: 37.1 ?C(Oral) HR: 88(Peripheral) BP: 122/64 SpO2: 98% HT: 66 in HT: 168 cm WT: 88.6 kg WT: 194.92 lb BMI: 31.39 General: Well developed, well nourished, in no [...] Mouth: mucous membranes pink, moist and intact. [place] posterior oropharynx, no palatal inflammation, uvula midline, [...] x3. Normal mood and affect Assessment/Plan 1. 24 weeks gestation of (Z3A.24: 24 weeks gestation of ) followed by [facility] - Dr. Blair 2. ADHD - Attention deficit disorder with hyperactivity [...] months, call for refills in between appts 3. High risk medication use (Z79.899: Other usp (current) drug therapy) 10/04/2023 14:04:30 I certify that I have reviewed the OARRS report and all PDMP information in this chart. Last fill was 09/29/23. Refill not due until 10/28/23. 4. BMI 31.0-31.9,adult (Z68.31: Body mass index [BMI] 31.0-31.9, adult) This is not accurate d/t pt's status Follow-up With When Contact Information Jory Monet In 3 months [address] [facility], [place] [address]- Additional Instructions: f/u ADHD, med recheck Patient Education Basics of Medicine Management Attention Deficit Hyperactivity Disorder, Adult Problem List/Past Medical History Ongoing 24 weeks gestation of ADHD - Attention deficit disorder with hyperactivity BMI 31.0-31.9,adult High risk medication use Seasonal allergic rhinitis Historical No qualifying data Procedure/Surgical History Pap smear and HPV cotesting (12/2021), Colonoscopy (2009), Maxillary sinus endoscopy with removal of cyst. Medications Adderall XR 5 mg oral capsule, extended release, 5 mg= 1 cap(s), Oral, qAM multivitamin Xyzal 5 mg oral tablet Allergies Strattera (Drug-induced acute pancreatitis) Social History Al (more content not included)... [facility] Comment on above: Result Comment: Elec tronically Signed By: Jory Monet\.br\Date and Time Signed: 10/04/23 14:21 EST Patient Educationon 09-27-19 Patient Education Caregiving Basics of Medicine Management Taking your medicines correctly is an important part of managing or preventing medical problems. Make sure you know what disease or condition your medicine is treating, and how and when to take it. If you do not take your medicine correctly, it may not work well and may cause unpleasant side effects, including serious health problems. What should I do when I am taking medicines? ? Read all the labels and inserts that come with your medicines. Review the information often and with each refill. ? Talk with your pharmacist if you get a refill and notice a change in the size, color, or shape of your medicines. ? Know the potential side effects for each medicine that you take. ? Try to get all your medicines from the same pharmacy. The pharmacist will have all your information and will understand how your medicines will affect each other (interact). ? Always carry an updated list of your medicines with you. If there is an emergency, a vp software support can quickly see what medicines you are taking. ? Tell your health care provider about all your medicines, including uirv-klw-ajrofvb medicines, vitamins, and herbal or dietary supplements. Your health care provider will make sure that nothing will interact with any of your prescribed medicines. How can I take my medicines safely? ? Take medicines only as told by your health care provider. ? Do not take more of your medicine than instructed. ? Do not take anyone else's medicines. ? Do not share your medicines with others. ? Do not stop taking your medicines unless your health care provider tells you to do so. ? You may need to avoid alcohol or certain foods or liquids when taking certain medicines. Follow your health care provider's instructions. ? Do not split, cut, crush, or chew your medicines unless your health care provider tells you to do so. Tell your health care provider if you have trouble swallowing your medicines. ? For liquid medicine, use the dosing container that was provided. Household spoons are not accurate. How should I organize my medicines? Know your medicines ? Know what each of your medicines looks like. This includes size, color, and shape. Tell your health care provider if you are having trouble recognizing all the medicines that you are taking. ? If you cannot tell your medicines apart because they look similar, keep them in the original bottles. ? If you cannot read the labels on the bottles, tell your pharmacist to put your medicines in containers with large print. ? Review your medicines and your schedule with family members, a friend, or a caregiver. Use a pill organizer ? Use a tool to organize your medicine schedule. Tools include a weekly pillbox, a written chart, a notebook, or a calendar. ? Your tool should help you remember the following things about each medicine: ? The name of the medicine. ? The amount (dose) to take. ? The schedule. This is the day and time the medicine should be taken. ? The appearance. This includes color, shape, size, and stamp. ? How to take your medicines. This includes instructions to take them with food, without food, with fluids, or with other medicines. ? Create reminders for taking your medicines. Use sticky notes, or use alarms on your watch, mobile device, or phone calendar. ? You may choose to use a more advanced management system. These systems have storage, alarms, and visual and audio prompts. ? Some medicines can be taken on an as-needed basis. These may include medicines for nausea, constipation, pain, cough and cold, allergies, and anxiety. If you take an as-needed medicine, write down the name and dose, as well as the date and time that you took it. How should I plan for travel? ? Take your pillbox, medicines, and organization system with you when traveling. ? Have your medicines refilled before you travel. This will ensure that you do not run out of your medicines while you are away from home. ? Always carry an updated list of your medicines with you. If there is an emergency, a vp software support can quickly see what medicines you are taking. ? Do not pack your medicines in checked luggage in case your luggage is lost or delayed. Keep your medicines in your carry-on bag. ? If any of your medicines is considered a controlled substance, make sure you bring a letter from your health care provider with you. How should I store and discard my medicines? For safe storage: ? Store medicines in a cool, dry area away from light, or as directed by your health care provider. Do not store medicines in the bathroom. Heat and humidity will affect them. ? Do not store your medicines with other chemicals or with medicines for pets or other household members. ? Keep medicines away from children and pets. Do not leave them on counters or bedside tables. Store them in high cabinets or on high shelves. Fo (more content not included)... [facility] AFP Maternalon 09-08-2023 AFP [Mass/Vol] 34.6 ng/mL Invalid Interpretation Code [facility] Comment on above: Performed By: #### 1 [id number] ####[facility] [address] [place] [address] AFP [MoM] 0.87 Invalid Interpretation Code [facility] Comment on above: Performed By: #### 1 [id number] ####[facility] [address] [place] [address] AFP Comment Comment Invalid Interpretation Code [facility] Comment on above: Result Comment: Maximo Whitaker, Ph.D., [facility] Director References: Available Upon Request. Multiples Of Median Cutoffs For AFP Elevations Da Silva 2.5 Black 2.8 IDD 2.0 Twins 4.5 Abbreviation Definitions IDD - Insulin Dep Diabetes OSBR - Open Spina Bifida Risk For further inquiries contact [employer] [facility] at [phone]. This test was developed and its performance characteristics determined by [employer]. It has not been cleared or approved by the Food and Drug Administration. Performed at: [facility] RTP [address] [facility], [place] [id number] [facility] Yuri Albert Performed By: #### 1 [id number] ####[place] [place] [address] AFP interpretation [Interp] Negative Invalid Interpretation Code [facility] Comment on above: Performed By: #### 1 [id number] ####[facility] [address] [facility] [place] [address] AFP interpretation Edmundo [Interp] Comment Invalid Interpretation Code [facility] Comment on above: Result Comment: Inte rpretation: [...] Customer Services to discuss available options. The [employer] recommends amniocentesis be offered to women age 35 and older. Performed By: #### 1 [id number] ####[facility] [address] [place] [address] AFP Maternal Report Invalid Interpretation Code [facility] Comment on above: Performed By: #### 1 [id number] ####[facility] [address] [place] [address] AGE.AT DELIVERY:TIME:PT: 31.1 Invalid Interpretation Code [facility] Comment on above: Performed By: #### 1 [id number] ####[place] [address] GESTATIONAL AGE METHOD:PRID:PT: Ultrasound Invalid Interpretation Code [facility] Comment on above: Result Comment: 16:6 on 08/23/2023 Recalculations are not recommended when gestational dating by LMP and ultrasound are within 10 days. Performed By: #### 1 [id number] ####[place] [address] GESTATIONAL AGE:TIME:PT: 18.4 week(s) Invalid Interpretation Code [facility] Comment on above: Performed By: #### 1 [id number] ####[place] [address] INSULIN DEPENDENT DIABETES MELLITUS:PRTHR:PT: No Invalid Interpretation Code [facility] Comment on above: Performed By: #### 1 [id number] ####[place] [address] MULTIPLE :FIND:PT: No Invalid Interpretation Code [facility] Comment on above: Performed By: #### 1 [id number] ####[place] [address] NEURAL TUBE DEFECT RISK:LIKELIHOOD:PT: 85988 Invalid Interpretation Code [facility] Comment on above: Performed By: #### 1 [id number] ####[place] [id number] RACE:TYPE:PT: Invalid Interpretation Code [facility] Comment on above: Performed By: #### 1 [id number] ####[place] [id number] Physician Orderon 09-08-2023 Physician Order [id number] 3#1.00TIFF [facility] CHEMISTRYOrdered By: SYSTEM SYSTEM on 09-03-2023 TSH Qn 0.66 m[IU]/L Normal 0.34 - 5.60 mcIU/mL Remisol Chem Consent for Treatmenton Consent for Treatment [id number] #1.00TIFF Normal [facility] Consent for Treatment [id number] #1.00TIFF [facility] Physician Orderon 09-03-2023 Physician Order [id number] 47#1.00TIFF [facility] TSHon 09-03-2023 TSH Qn 0.66 m[IU]/L Normal 0.34-5.60 [facility] Comment on above: Performed By: #### 2 [id number] ####[facility] [address] [place] [address] Ambulatory Visit Summaryon 09-16-2022 Ambulatory Visit Summary JOSIE TOMLIN :1990 [...] Comments: f/u ADHD, med recheck Where: [address], [facility] [address]- Medications What How Much When Why Instructions [...] numbers. This can be done either in [place] ([place] or metric measurements. Note that charts and online BMI calculators are available to help you find your BMI quickly and easily without having to do these calculations yourself. To calculate your BMI in Armenian ([place].S[place] measurements: 1. Measure your weight in [...] build (more content not included)... Normal [facility] Family Medicine Office/Clini c Noteon 07-16-2023 Family Medicine [...] Mouth: mucous membranes pink, moist and intact. [place] posterior oropharynx, no palatal inflammation, uvula midline, [...] cap(s), Oral, qAM, 30 cap(s), Refill(s) 0, [facility] #[id number], 168, cm, 07/16/23 9:27:00 EST, Height/Length Dosing, 83.5, kg, 07/16/23 9:27:00 EST, Weight Dosing 2. High risk medication use (Z79.899: Other usp (current) drug therapy) 07/16/2023 09:39:17 I certify that I have reviewed the OARRS report and all PDMP information in this chart. Last fill was 06/25/23. 3. 12 weeks gestation of (Z3A.12: 12 weeks gestation of ) followed by [facility] - Dr. Blair 4. Overweight (E66.3: Overweight) [...] Information Jory Monet In 3 months [address], [place] [address]- Additional Instructions: f/u ADHD, med recheck Patient Education BMI for Adults Attention Def (more content not included)... [facility] Comment on above: Result Comment: Elec tronically Signed By: Jory Monet\.br\Date and Time Signed: 07/16/23 09:50 EST Patient Educationon 07-09-20 Patient Education Mental and Behavioral Health Attention [...] primary care provider or a mental health primary care nurse practitioner. Your health care provider may use a [...] Behavioral management. You may work with a conditioning coach who is specially trained to help people with ADHD manage and organize activities and function more effectively. Follow these instructions at home: Medicines ? Take cerd-qsc-ceialyo and prescription medicines only as told by [...] Follow th (more content not included)... [facility] ED Note-Physicianon 07-08-20 ED Note-Physician Basic Information Time Seen: Zak VELEZ Rik Sudhakar 07/07/2023 14:55 Chief Complaint pt states no [...] Doran In 3 days 07/10/2023 EST [address] [facility] [place] [address] Business (1) Additional Instructions: Call the office [...] Denies Substance Abuse, (more content not included)... [facility] Comment on above: Result Comment: Elec tronically Signed By: Rik Crespo DO\.br\Date and Time Signed: 07/08/23 08:26 EST Consent for Treatmenton Consent for Treatment [id number] 4#1.00TIFF [facility] Discharge Instructionson Discharge Instructions [id number] 4#1.00TIFF [facility] ED Clinical Summaryon 2022 ED Clinical Summary [address] [address] ED Clinical Summary Person Information Name: JOSIE TOMLIN No [place] Age: 32 Years : 1990 Sex: Female Language: Armenian PCP: Jory Monet Marital Status: Single MRN: [id number] Visit Id: Visit Reason: Constipation; Abdominal pain [...] 07/07/2023 16:18:46 07/07/2023 16:18:46 07/07/2023 16:18:46 ADDRESS: [address] [place] [id number] PHYS DOC NOTES: MEDICAL INFORMATION: Prescriptions Given: Medications to Continue with No Changes Other Medications amphetamine-dextroam phetamine (Adderall XR 5 mg oral capsule, extended release) 1 Capsules By Mouth once a day (in the morning). Refills: 0. levocetirizine (Xyzal 5 mg oral tablet) multivitamin PATIENT EDUCATION INFORMATION: Instructions: Constipation, Adult Follow up: With: Address: When: Jory Doran [address] [place] [address], [facility] [place] [address] [facility] (1) In 3 days 07/10/2023 Comments: Call [...] other 1 tomorrow. DIAGNOSIS: Acute constipation [facility] ED Patient Education Noteon 07-07-2023 ED Patient [...] as fried or sweet foods. These include slovenian fries, hamburgers, cookies, candies, and soda. ? Drink enough fluid to keep your urine pale yellow. General instructions ? Exercise regularly or as told by your health care provider. Try to do 150 minutes of moderate exercise each week. ? Use the bathroom when you have the urge to go. Do not hold it in. ? Take udqx-zxv-bukxmvp and prescription medicines only as told by [...] keep your urine pale yellow. ? Take ffxh-xuk-einstbc and prescription medicines only as told by your health care provider. This includes any fiber supplements. This information is not intended to replace advice given to you by your health care provider. Make sure you discuss any questions you have with your health care provider. Document Revised: 06/05/2020 Document Reviewed: 06/05/2020 Elsevier Patient Education ? 2022 FRS. Normal [facility] ED Patient Summaryon 023 ED Patient Summary [address] [address] Patient Discharge Instructions Person Information Name: JOSIE TOMLIN Age: 32 Years Arrival Date: 07/07/2023 13:22:40 Discharge Diagnosis: Acute constipation Primary Care Physician: Espinoza HARDEN, Jory Owusu Provider Information Primary Provider: Rik Crespo DO Advanced [employer] Sewer Hand:None The exam and treatment you received in the Emergency Department were for an urgent problem and are not intended as complete care. It is important that you follow up with a doctor, nurse practitioner, or physician?s blacksmith assistant for ongoing care. If your symptoms become worse or you do not improve as expected and you are unable to reach your usual health care provider, you should return to the Emergency Department. We are available 24 hours a day. JOSIE TOMLIN has been given the following list of patient education materials, prescriptions and follow-up instructions: Follow-up Instructions: With: Address: When: Jory Doran [address] [place] [address] [place] [address] Business (1) In 3 days 07/10/2023 Comments: [...] opioids can be used to help relieve greqhbto-dy-rpxzkc pain and are often prescribed following a [...] take op (more content not included)... [facility] RAD - Consent to Procedureon 07-07-2023 RAD - Consent to Procedure [id number] 2#1.00TIFF [facility] UA With Cult Reflexon 2022 Bacteria LM Ql (Urine sed) TRACE Normal Trace [facility] Comment on above: Performed By: #### 1 [id number] ####[facility] [address] [place] [address] Bilirubin Ql (U) Negative Normal Negative [facility] Comment on above: Performed By: #### 1 [id number] ####[facility] [address] [place] [address] Clarity (U) CLEAR Normal Clear [facility] Comment on above: Performed By: #### 1 [id number] ####[facility] [address] [place] [address] Color (U) YELLOW Normal Yellow [facility] Comment on above: Performed By: #### 1 [id number] ####[facility] [address] [place] [address] Epithelial cells.squamous LM.HPF (Urine sed) [#/Area] 0-2 Normal 0-2 [facility] Comment on above: Performed By: #### 1 [id number] ####[facility] [address] [place] [address] Glucose Test strip (U) [Mass/Vol] Negative Normal Negative [facility] Comment on above: Performed By: #### 1 [id number] ####[address] [address] Hemoglobin Ql (U) Negative Normal Negative [facility] Comment on above: Performed By: #### 1 [id number] ####[address] [address] Ketones (U) [Mass/Vol] 2+ Abnormal Negative [facility] Comment on above: Performed By: #### 1 [id number] ####[address] [address] [place].plasma/Lithiu m.RBC (Bld) [Mass ratio] 0-3 Normal 0-3 [facility] Comment on above: Performed By: #### 1 [id number] ####[address] [address] Mucus Ql (Urine sed) 1+ Normal Fish [facility] Comment on above: Performed By: #### 1 [id number] ####[address] [address] Nitrite Ql (U) Negative Normal Negative [facility] Comment on above: Performed By: #### 1 [id number] ####[address] [address] pH (U) 5.5 [pH] Invalid Interpretation Code 5.0-9.0 [facility] Comment on above: Performed By: #### 1 [id number] ####[address] [address] Protein (U) [Mass/Vol] Negative Normal Negative [facility] Comment on above: Performed By: #### 1 [id number] ####[address] [address] Specific gravity (U) [Rel density] 1.025 Invalid Interpretation Code 1.005-1.030 [facility] Comment on above: Performed By: #### 1 [id number] ####[address] [address] Type of Urine collection method Clean Catch Normal [facility] Comment on above: Performed By: #### 1 [id number] ####[facility] [address] [place] [address] Urobilinogen Qn (U) 0.2 {Imelda'U}/dL Normal 0.0-1.0 [facility] Comment on above: Performed By: #### 1 [id number] ####[facility] [address] [place] [address] WBC Auto Ql (U) TRACE Abnormal Negative [facility] Comment on above: Performed By: #### 1 [id number] ####[facility] [address] [place] [address] WBC LM.HPF (Urine sed) [#/Area] 0-5 Normal 0-5 [facility] Comment on above: Performed By: #### 1 [id number] ####[facility] [address] [place] [address] URINALYSISOrdered By: Jaymie Hernandez on 07-07-2023 Bacteria [...] Interpretation Code Negative [facility] UA Auto SS [place].plasma/Lithiu m.RBC (Bld) [Mass ratio] 0-3 /HPF Normal 0-3/HPF [facility] UA Auto SS Mucus Ql (Urine sed) 1+ (07/07/23 3:12 PM) Normal [facility] UA Auto SS Nitrite Ql (U) Negative (07/07/23 3:12 PM) Normal Negative [facility] UA Auto SS pH (U) 5.5 *NA* (07/07/23 3:12 PM) Invalid Interpretation Code 5.0 - 9.0 [facility] UA Auto SS Protein (U) [Mass/Vol] Negative (07/07/23 3:12 PM) Normal Negative [facility] UA Auto SS Specific gravity (U) [Rel density] 1.025 *NA* (07/07/23 3:12 PM) Invalid Interpretation Code 1.005 - 1.030 [facility] UA Auto SS UA Spec Desc Clean Catch (07/07/23 3:12 PM) Normal [facility] UA Auto SS Urobilinogen Qn (U) 0.3843461 {Imelda'U}/dL Normal 0.0 - 1.0 EU/dL [facility] UA Auto SS WBC Auto Ql (U) Trace *ABN* (07/07/23 3:12 PM) Invalid Interpretation Code Negative [facility] UA Auto SS WBC LM.HPF (Urine sed) [#/Area] 0-5 /HPF Normal 0-5/HPF [facility] UA Auto SS XR Abdomen 1 Viewon [...] mGy = na DAP = na Normal [facility] BhCG Quanton 05-27-2023 HCG.beta subunit Qn 249 m[IU]/mL High 1-3 [facility] Comment on above: Result Comment: GEST ATIONAL AGE HCG RANGE (mIU/mL) NON- <1-3 0.2-1 WEEKS 5-50 1-2 WEEKS 50-500 2-3 WEEKS 100-5,000 3-4 WEEKS 500-10,000 4-5 WEEKS 1,000-50,000 5-6 WEEKS 10,000-100,000 6-8 WEEKS 15,000-200,000 8-12 WEEKS 10,000-100,000 Performed By: #### 2 [id number] ####[facility] [address] [place] [address] CHEMISTRYOrdered By: SYSTEM SYSTEM on 05-27-2023 HCG.beta subunit Qn 249 m[IU]/mL High 1 - 3 mIU/mL [facility]isol Comment on above: Interpretive Data: G ESTATIONAL AGE HCG RANGE (mIU/mL) NON- <1-3 0.2-1 WEEKS 5-50 1-2 WEEKS 50-500 2-3 WEEKS 100-5,000 3-4 WEEKS 500-10,000 4-5 WEEKS 1,000-50,000 5-6 WEEKS 10,000-100,000 6-8 WEEKS 15,000-200,000 8-12 WEEKS 10,000-100,000 Consent for Treatmenton 05-03 Consent for Treatment [id number] #1.00TIFF Normal [facility] Physician Orderon 05-27-2023 Physician Order [id number] 4#1.00TIFF Normal [facility] BhCG Quanton 05-25-2023 HCG.beta subunit Qn 71 m[IU]/mL High 1-3 Fish [facility] Comment on above: Result Comment: GEST ATIONAL AGE HCG RANGE (mIU/mL) NON- <1-3 0.2-1 WEEKS 5-50 1-2 WEEKS 50-500 2-3 WEEKS 100-5,000 3-4 WEEKS 500-10,000 4-5 WEEKS 1,000-50,000 5-6 WEEKS 10,000-100,000 6-8 WEEKS 15,000-200,000 8-12 WEEKS 10,000-100,000 Performed By: #### 2 [id number] ####[facility] [address] [place] [address] CHEMISTRYOrdered By: SYSTEM SYSTEM on 05-25-2023 HCG.beta subunit Qn 71 m[IU]/mL High 1 - 3 mIU/mL [facility] Comment on above: Interpretive Data: G ESTATIONAL AGE HCG RANGE (mIU/mL) NON- <1-3 0.2-1 WEEKS 5-50 1-2 WEEKS 50-500 2-3 WEEKS 100-5,000 3-4 WEEKS 500-10,000 4-5 WEEKS 1,000-50,000 5-6 WEEKS 10,000-100,000 6-8 WEEKS 15,000-200,000 8-12 WEEKS 10,000-100,000 Consent for Treatmenton 05-03 Consent for Treatment [id number] #1.00TIFF Normal [facility] Physician Orderon 05-25-2023 Physician Order [id number] 3#1.00TIFF [facility] Ambulatory Visit Summaryon 0 04-30-2023 Ambulatory Visit Summary DEANDRESHERRIMARLEE ABURTOILY No :1990 Visit Date:04/30/2023 Ambulatory Visit Instructions Your [...] Appointments Wednesday 7:00 AM EST With: Jory [place] Where: [facility] Primary Care Normal [facility] Medicine Office/Clini c Noteon 04-30-2023 Family Medicine [...] Mouth: mucous membranes pink, moist and intact. [place] posterior oropharynx, no palatal inflammation, uvula midline, [...] 2. High risk medication use (Z79.899: Other intermodal customer service (current) drug therapy) 04/30/2023 07:28:10 I certify [...] Information Jory Monet In 3 months [address], [place] [address]- Additional Instructions: f/u ADHD, med recheck Patient Education BMI for Adults Attention Deficit Hyperactivity (more content not included)... Normal [facility] Comment on above: Result Comment: Elec tronically [...] primary care provider or a mental health primary care nurse practitioner. Your health care provider may use a [...] Behavioral management. You may work with a conditioning coach who is specially trained to help people with ADHD manage and organize activities and function more effectively. Follow these instructions at home: Medicines ? Take mkhi-ecn-wslapop and prescription medicines only as told by [...] available online (more content not included)... Normal [facility] Quanton 04-09-2023 HCG.beta subunit Qn 1 m[IU]/mL Normal 1-3 [facility] Comment on above: Result Comment: GEST ATIONAL AGE HCG RANGE (mIU/mL) NON- <1-3 0.2-1 WEEKS 5-50 1-2 WEEKS 50-500 2-3 WEEKS 100-5,000 3-4 WEEKS 500-10,000 4-5 WEEKS 1,000-50,000 5-6 WEEKS 10,000-100,000 6-8 WEEKS 15,000-200,000 8-12 WEEKS 10,000-100,000 Performed By: #### [id number] ####[facility] [id number] [place] [address] CHEMISTRYOrdered By: SYSTEM SYSTEM on 04-09-2023 HCG.beta subunit Qn 1 m[IU]/mL Normal 1 - 3 mIU/mL FTM C Remisol Consent for Treatmenton Consent for Treatment [id number] #1.00CD:127 [facility] Physician Orderon 04-09-2023 Physician Order [id number] #1.00CD:127 [facility] BhCG Quanton 04-02-2023 HCG.beta subunit Qn 14 m[IU]/mL High 1-3 [facility] Comment on above: Result Comment: GEST ATIONAL AGE HCG RANGE (mIU/mL) NON- <1-3 0.2-1 WEEKS 5-50 1-2 WEEKS 50-500 2-3 WEEKS 100-5,000 3-4 WEEKS 500-10,000 4-5 WEEKS 1,000-50,000 5-6 WEEKS 10,000-100,000 6-8 WEEKS 15,000-200,000 8-12 WEEKS 10,000-100,000 Performed By: #### 2 [id number] ####[facility] [id number] [place] [address] CHEMISTRYOrdered By: SYSTEM SYSTEM on 04-02-2023 HCG.beta subunit Qn 14 m[IU]/mL High 1 - 3 mIU/mL FT Remisol Consent for Treatmenton Consent for Treatment [id number] #1.00CD:127 [facility] Physician Orderon 04-02-2023 Physician Order [id number]#1.00CD:127 [facility] Lab Reportson 01-22-2023 Lab Reports [id number]# 1.00CD:127 [facility] Family Medicine Office/Clini c Noteon 01-19-2023 Family [...] 2. High risk medication use (Z79.899: Other intermodal customer service (current) drug therapy) 01/19/2023 08:20:29 I certify [...] for progress. Follow-up With When Contact Information Espinoza HARDEN, Jory Owusu In 3 months [address], [place] [address]- Additional Instructions: f/u ADHD Patient Education Health [...] cotesting (01/01 (more content not included)... Normal [facility] Comment on above: Result Comment: Elec trodoraally Signed By: Jory Monet\.br\Date and Time Signed: [...] primary care provider or a mental health primary care nurse practitioner. Your health care provider may use a [...] Behavioral management. You may work with a conditioning coach who is specially trained to help people with ADHD manage and organize activities and function more effectively. Follow these instructions at home: Medicines ? Take ltnq-nzr-uxhffoe and prescription medicines only as told by [...] are available online (more content not included)... [facility] Consenton 12-08-2022 Consent [id number] #1.00CD:127 [facility] Nurse Consultation Noteon Nurse Consultation Note Reason [...] Recorded hepatitis B pediatric vaccine 01/20/1993 Recorded Normal [facility] CHEMISTRYOrdered By: SYSTEM SYSTEM on 07-24-2022 Albumin [...] mEq/L [facility] Remisol AST [Catalytic activity/Vol] 22 [iU]/d Normal 5 - 43 Int._Unit/L [facility] Remisol Bilirubin [Mass/Vol] 3.1 mg/dL High 0.0 - 1 .1 mg/dL [facility] Remisol Bilirubin.direct [Mass/Vol] 0.3 mg/dL Normal 0.1 - 0.4 mg/dL [facility] Remisol Bilirubin.indirect [Mass or moles/Vol] 2.8 mg/dL High 0.1 - 0.9 mg/dL [facility] Remisol Calcium [Mass/Vol] 8.6 mg/dL Low 8.9 - 11. 1 mg/dL [facility] Remisol Chloride [Moles/Vol] 101 mmol/L Normal 101 - 1 11 mmol/L [facility] Remisol CO2 [Moles/Vol] 22 mmol/L Normal 21 - 31 mmol/L [facility] Remisol Creatinine [Mass/Vol] 0.6 mg/dL Normal 0.5 - 1.3 mg/dL [facility] Remisol GFR/1.73 sq M.predicted among blacks MDRD (S/P/Bld) [Vol rate/Area] mL/min/1.73 m2 Normal >=59mL/min/1. 73 m2 [facility] Chem S GFR/1.73 sq M.predicted among non-blacks MDRD (S/P/Bld) [Vol rate/Area] mL/min/1.73 m2 Normal >=59mL/min/1. 73 m2 [facility] Chem S Globulin (S) [Mass/Vol] 3.4 g/dL Normal 1.4 - 4.0 gm/dL [facility] Remisol Glucose [Mass/Vol] 105 mg/dL Normal 55 - 199 mg/dL [facility] Remisol Lipase [Catalytic activity/Vol] 28 U/L Normal 13 - 58 unit/L [facility] Remisol Potassium [Moles/Vol] 3.5 mmol/L Normal 3.5 - 5.3 mmol/L [facility] Remisol Protein [Mass/Vol] 7.8 g/dL Normal 6.0 - 7.8 gm/dL [facility] Remisol Sodium [Moles/Vol] 132 mmol/L Low 135 - 145 mmol/L [facility] Remisol Urea nitrogen [Mass/Vol] 15 mg/dL Normal 5 - 21 mg/dL [facility] Remisol Urea nitrogen/Creatinine [Mass ratio] 25 mg/mg [...] - 7.5 E9/L [facility] HemeAutoSS HEMATOLOGYOrdered By: Lois Lucas on 07-24-2022 Erythrocyte distribution width (RBC) [Ratio] 13.6 % Normal 10.9 - 14.2 % [facility] HemeAutoSS Hematocrit (Bld) [Volume fraction] 43.2 % Normal 34.0 - 46.0 % [facility] HemeAutoSS Hemoglobin (Bld) [Mass/Vol] 14.6 g/dL Normal 12.0 - 16.0 gm/dL [facility] [...] hCG Ql Negative (07/24/22 8:51 PM) Normal [facility] Man Sero URINALYSISOrdered By: [place] on [...] Interpretation Code Negative [facility] UA Auto SS [place].plasma/Lith[place] m.RBC (Bld) [Mass ratio] 0-3 /HPF Normal 0-3/HPF [facility] UA Auto SS Mucus Ql (Urine sed) Trace (07/24/22 8:52 PM) Normal [facility] UA Auto SS Nitrite Ql (U) Negative (07/24/22 8:52 PM) Normal Negative [facility] UA Auto SS pH (U) 6.0 *NA* (07/24/22 8:52 PM) Invalid Interpretation Code 5.0 - 9.0 [facility] UA Auto SS Protein (U) [Mass/Vol] Trace *ABN* (07/24/22 8:52 PM) Invalid Interpretation Code Negative [facility] UA Auto SS Specific gravity (U) [Rel density] 1.025 *NA* (07/24/22 8:52 PM) Invalid Interpretation Code 1.005 - 1.030 [facility] UA Auto SS UA Spec Desc Clean Catch (07/24/22 8:52 PM) Normal [facility] UA Auto SS Urobilinogen Qn (U) 1.2199233 {Imelda'U}/dL Normal 0.0 - 1.0 EU/dL [facility] UA Auto SS WBC Auto Ql (U) Negative (07/24/22 8:52 PM) Normal Negative [facility] UA Auto SS WBC LM.HPF (Urine sed) [#/Area] 6-15 /HPF Invalid Interpretation Code 0-5/HPF [facility] UA Auto SS CHEMISTRYOrdered By: SYSTEM SYSTEM [...] rate/Area] mL/min/1.73 m2 Normal >=59mL/min/1. 73 m2 FT Chem S GFR/1.73 sq M.predicted among non-blacks MDRD (S/P/Bld) [Vol rate/Area] mL/min/1.73 m2 Normal >=59mL/min/1. 73 m2 FT Chem S Globulin (S) [Mass/Vol] 2.5 g/dL [...] 14 mg/dL Normal 5 - 21 mg/dL FT Remisol Urea nitrogen/Creatinine [Mass ratio] 20 mg/mg [...] 13.2 % Normal 10.9 - 14.2 % FT HemeAutoSS Hematocrit (Bld) [Volume fraction] 40.1 % Normal 34.0 - 46.0 % FT HemeAutoSS Hemoglobin (Bld) [Mass/Vol] 13.6 g/dL Normal 12.0 - 16.0 gm/dL FT HemeAutoSS MCH (RBC) [Entitic mass] 27.9 pg Normal 27.0 - 34.0 pg [facility] HemeAutoSS MCHC (RBC) [Mass/Vol] 33.9 g/dL Normal 31.4 - 36.0 gm/dL FT HemeAutoSS MCV (RBC) [Entitic vol] 82.2 fL Normal 80.0 - 100.0 fL FT HemeAutoSS Platelet mean volume (Bld) [Entitic vol] 8.4 fL Normal 6.4 - 10.8 fL FT HemeAutoSS Platelets (Bld) [#/Vol] 287.0 E9/L Normal 150.0 - 500.0 E9/L FT HemeAutoSS RBC (Bld) [#/Vol] 4.9 E12/L Normal 4.3 - 5.9 E12/L FT HemeAutoSS WBC corrected for nucl RBC Auto (Bld) [#/Vol] 6.8 E9/L Normal 4.0 - 11.0 E9/L FT HemeAutoSS Vital Signs Date Time Vital Sign Value Performing Clinician Facility 10-25-2023 14:43-0400 Blood Pressure Location Oren Mohamud [facility] 10-25-2023 14:43-0400 Body temperature 100.4 [degF] Oren Mohamud [facility] 10-25-2023 14:43-0400 Diastolic blood pressure 76 mm[Hg] Oren Mohamud [facility] 10-25-2023 14:43-0400 Heart rate 139 /min Oren Mohamud [facility] 10-25-2023 14:43-0400 SaO2% (BldA) [Mass fraction] 98 % Oren Mohamud [facility] 10-25-2023 14:43-0400 Systolic blood pressure 116 mm[Hg] Oren Mohamud [facility] 10-04-2023 13:58-0500 Blood Pressure Location Jory Doran [facility] 10-04-2023 13:58-0500 Body temperature 98.78 [degF] Jory Doran [facility] 10-04-2023 13:58-0500 Diastolic blood pressure 64 mm[Hg] Jory Doran [facility] 10-04-2023 13:58-0500 Heart rate 88 /min Jory Doran [facility] 10-04-2023 13:58-0500 SaO2% (BldA) [Mass fraction] 98 % Jory Doran [facility] 10-04-2023 13:58-0500 Systolic blood pressure 122 mm[Hg] Jory Doran [facility] 09-08-2023 08:07-0500 Body weight 86.184 kg DIMITRI ERAN VELEZ [facility] Comment on above: Performed By: #### [id number] ####[facility] [id number] [place] [address] 07-07-2023 16:00-0500 Diastolic blood pressure 81 mm[Hg] Rik Crespo [facility] 07-07-2023 16:00-0500 Heart rate 90 /min Rik Crespo [facility] 07-07-2023 16:00-0500 Mean blood pressure 101 mm[Hg] Rik Crespo [facility] 07-07-2023 16:00-0500 SaO2% (BldA) [Mass fraction] 96 % Rik Crespo [facility] 07-07-2023 16:00-0500 Systolic blood pressure 141 mm[Hg] Rik Crespo [facility] 07-07-2023 15:08-0500 Diastolic blood pressure 79 mm[Hg] Rik Crespo [facility] 07-07-2023 15:08-0500 Heart rate 96 /min Rik Zak [facility] 07-07-2023 15:08-0500 Mean blood pressure 92 mm[Hg] Rik Zak [facility] 07-07-2023 15:08-0500 Respiratory rate 15 /min Rik Zak [facility] 07-07-2023 15:08-0500 SaO2% (BldA) [Mass fraction] 99 % Rik Crespo [facility] 07-07-2023 15:08-0500 Systolic blood pressure 119 mm[Hg] Rik Crespo [facility] 07-07-2023 13:33-0500 Body temperature 98.24 [degF] Rik Crespo [facility] 07-07-2023 13:33-0500 Diastolic blood pressure 91 mm[Hg] Rik Crespo [facility] 07-07-2023 13:33-0500 Heart rate 110 /min Rik Zak [facility] 07-07-2023 13:33-0500 Respiratory rate 16 /min Rik Crespo [facility] 07-07-2023 13:33-0500 SaO2% (BldA) [Mass fraction] 100 % Rik Zak [facility] 07-07-2023 13:33-0500 Systolic blood pressure 128 mm[Hg] Rik Zak [facility] 04-30-2023 07:05-0400 Blood Pressure Location Jory Doran [facility] 04-30-2023 07:05-0400 Body temperature 97.7 [degF] Jory Missler [facility] 04-30-2023 07:05-0400 Diastolic blood pressure 62 mm[Hg] Jory Missler [facility] 04-30-2023 07:05-0400 Heart rate 82 /min Jory Missler [facility] 04-30-2023 07:05-0400 SaO2% (BldA) [Mass fraction] 99 % Jory Missler [facility] 04-30-2023 07:05-0400 Systolic blood pressure 118 mm[Hg] Jory Missler [facility] 01-19-2023 07:52-0400 Blood Pressure Location Jory Missler [facility] 01-19-2023 07:52-0400 Diastolic blood pressure 62 mm[Hg] Jory Missler [facility] 01-19-2023 07:52-0400 Heart rate 91 /min Jory Missler [facility] 01-19-2023 07:52-0400 SaO2% (BldA) [Mass fraction] 99 % Jory Missler [facility] 01-19-2023 07:52-0400 Systolic blood pressure 124 mm[Hg] Jory Missler [facility] 09-23-2022 16:18-0500 Blood Pressure Location Jory Missler [facility] 09-23-2022 16:18-0500 Diastolic blood pressure 78 mm[Hg] Jory Missler [facility] 09-23-2022 16:18-0500 Heart rate 96 /min Jory Missler [facility] 09-23-2022 16:18-0500 Respiratory rate 18 /min Jory Missler [facility] 09-23-2022 16:18-0500 SaO2% (BldA) [Mass fraction] 98 % Jory Missler [facility] 09-23-2022 16:18-0500 Systolic blood pressure 118 mm[Hg] Jory Missler [facility] 07-24-2022 23:30-0500 Diastolic blood pressure 79 mm[Hg] Kaylinn Dokken [facility] 07-24-2022 23:30-0500 Heart rate 90 /min Kaylinn Dokken [facility] 07-24-2022 23:30-0500 Respiratory rate 16 /min Kaylinn Dokken [facility] 07-24-2022 23:30-0500 SaO2% (BldA) [Mass fraction] 99 % Kaylinn Dokken [facility] 07-24-2022 23:30-0500 Systolic blood pressure 100 mm[Hg] Kaylinn Dokken [facility] 07-24-2022 22:00-0500 Diastolic blood pressure 75 mm[Hg] Kaylinn Dokken [facility] 07-24-2022 22:00-0500 Heart rate 101 /min Kaylinn Dokken [facility] 07-24-2022 22:00-0500 Mean blood pressure 87 mm[Hg] Kaylinn Dokken [facility] 07-24-2022 22:00-0500 Respiratory rate 18 /min Kaylinn Dokken [facility] 07-24-2022 22:00-0500 SaO2% (BldA) [Mass fraction] 98 % Kaylinn Dokken [facility] 07-24-2022 22:00-0500 Systolic blood pressure 110 mm[Hg] Kaylinn Dokken [facility] 07-24-2022 21:30-0500 Diastolic blood pressure 68 mm[Hg] Kaylinn Dokken [facility] 07-24-2022 21:30-0500 Heart rate 109 /min Kaylinn Dokken [facility] 07-24-2022 21:30-0500 Mean blood pressure 79 mm[Hg] Kaylinn Dokken [facility] 07-24-2022 21:30-0500 Respiratory rate 20 /min Kaylinn Dokken [facility] 07-24-2022 21:30-0500 SaO2% (BldA) [Mass fraction] 97 % Kaylinn Dokken [facility] 07-24-2022 21:30-0500 Systolic blood pressure 100 mm[Hg] Kaylinn Dokken [facility] 07-24-2022 21:00-0500 Heart rate 116 /min Kaylinn Dokken [facility] 07-24-2022 21:00-0500 Mean blood pressure 89 mm[Hg] Kaylinn Dokken [facility] 07-24-2022 20:36-0500 Body temperature 98.78 [degF] Jessica Lua [facility] 07-24-2022 20:36-0500 Heart rate 130 /[facility] Encounters Encounter Date Encounter Type Care Provider Facility Start: 10-25-2023 End: 10-26-2023 ambulatory Oren Mohamud Facility:[facility] Start: 10-25-2023 End: 10-25-2023 Patient encounter procedure Oren Mohamud [facility] Start: 10-25-2023 End: 10-25-2023 ambulatory MIRLANDE EDGARD Not Available Start: 10-21-2023 End: 10-22-2023 ambulatory Mirlande R EDGARD Facility[facility] Start: 10-21-2023 End: 10-21-2023 Patient encounter procedure Mirlande R EDGARD [facility] Start: 10-04-2023 End: 10-05-2023 ambulatory Jory Doran Facility:[facility] Start: 10-04-2023 End: 10-04-2023 Patient encounter procedure Jory Doran [facility] Start: 09-27-2023 End: 09-27-2023 ambulatory MIRLANDE EDGARD Not Available Start: 09-03-2023 End: 09-04-2023 ambulatory Mirlande R EDGARD Facility[facility] Start: 09-03-2023 End: 09-03-2023 Patient encounter procedure rita salinas [facility] Start: 08-23-2023 End: 08-23-2023 ambulatory RITA SALINAS Not Available Start: 07-22-2023 End: 07-22-2023 ambulatory MIRLANDE EDGARD Not Available Start: 07-16-2023 End: 07-17-2023 ambulatory Jory Doran [facility] Start: 07-07-2023 End: 07-07-2023 Emergency department patient visit Rik Crespo Facility:[facility] Start: 07-07-2023 End: 07-07-2023 Emergency department patient visit Rik Crespo [facility] Start: 06-18-2023 End: 06-18-2023 ambulatory RITA SALINAS Not Available Start: 05-27-2023 End: 05-28-2023 ambulatory Mirlande R EDGARD Facility:[facility] Start: 05-27-2023 End: 05-27-2023 Patient encounter procedure Mirlande R EDGARD [facility] Start: 05-25-2023 End: 05-26-2023 ambulatory Mirlande R EDGARD Facility:[facility] Start: 05-25-2023 End: 05-25-2023 Patient encounter procedure Mirlande R EDGARD [facility] Start: 04-30-2023 End: 05-01-2023 ambulatory Jory Doran [facility] Start: 04-30-2023 End: 04-30-2023 Patient encounter procedure Jory Doran [facility] Start: 04-09-2023 End: 04-10-2023 ambulatory DIMITRI BARILLAS DO Facility:[facility] Start: 04-09-2023 End: 04-09-2023 Patient encounter procedure DIMITRI BARILLAS DO [facility] Start: 04-02-2023 End: 04-03-2023 ambulatory DIMITRI BARILLAS DO Facility:[facility] Start: 04-02-2023 End: 04-02-2023 Patient encounter procedure DIMITRI BARILLAS DO [facility] Start: 03-15-2023 End: 03-16-2023 ambulatory Narcisa Gordon [facility] Start: 03-15-2023 End: 03-15-2023 Patient encounter procedure Narcisa Gordon [facility] Start: 01-19-2023 End: 01-20-2023 ambulatory Joryantoinette Doran [facility] Start: 01-19-2023 End: 01-19-2023 Patient encounter procedure Jory Doran [facility] Start: 01-19-2023 End: 01-19-2023 Well adult monitoring check done Jory Doran [facility] Start: 12-08-2022 End: 12-09-2022 ambulatory [facility] Doran [facility] Start: 12-08-2022 End: 12-08-2022 Patient encounter procedure Jory Doran [facility] Start: 10-28-2022 ambulatory DIMITRI BARILLAS DO Facilit [facility] Start: 09-23-2022 End: 09-23-2022 Patient encounter procedure Jory Doran [facility] Start: 07-24-2022 End: 07-24-2022 Emergency department patient visit Jessica Lua [facility] Start: 10-20-2021 End: 10-20-2021 Lab Drop off JORY DORAN [facility] Procedures Date Procedure Procedure Detail Performing Clinician Start: 12-31-2021 Microscopic examinat ion of cervical Papanicolaou smear and Human papillomavirus deoxyribonucleic acid detection cotesting Jory Doran Start: 08-02-2009 Colonoscopy Jory rosas Maxillary sinus endo scopy with removal of cyst JORY DORAN Plan of Treatment Date Care Activity Detail Author Start: 01-18-2024 ambulatory Ambulatory Facility:[facility] Immunizations Immunization Date Immunization Notes Care Provider Fa cili 06-01-2023 influenza virus vaccine, unspecified formulation rita salinas [facility] 09-26-2022 SARS-CoV-2 (COVID-19 ) [id number] Jory Doran [facility] 06-17-2022 influenza virus vaccine, unspecified formulation Jory Doran [facility] 07-27-2021 SARS-CoV-2 (COVID-19 ) mRNA BNT-162b2 vax Jory Doran [facility] 05-15-2021 influenza virus vaccine, unspecified formulation Jory Doran [facility] 11-15-2020 COVID-19, mRNA, LNP- S, PF, 30 mcg/0.3 mL dose; Translations: [[employer]-ImmuRxNTech COVID-19 Vaccine] JORY DORAN [facility] Comment on above: Reason for Medicatio n: Prophylaxis 10-18-2020 COVID-19, mRNA, LNP- S, PF, 30 mcg/0.3 mL dose; Translations: [Pfizer-BioNTech COVID-19 Vaccine] JORY DORAN [facility] Comment on above: Reason for Medicatio n: Prophylaxis 05-13-2020 influenza virus vaccine, unspecified formulation Jory Missler [facility] 05-19-2019 influenza virus vaccine, unspecified formulation Jory Missler [facility] 04-28-2018 influenza virus vaccine, unspecified formulation Jory Missler [facility] 05-13-2016 influenza virus vaccine, unspecified formulation Jory Missler [facility] 11-21-2015 measles, mumps and rubella virus vaccine Jory Missler [facility] 11-21-2015 tetanus toxoid, redu stephon diphtheria toxoid, and acellular pertussis vaccine, adsorbed Jory Missler [facility] 06-15-2015 influenza virus vaccine, unspecified formulation Jory Missler [facility] 05-12-2013 influenza virus vaccine, unspecified formulation Jory Missler [facility] 07-05-2012 influenza virus vaccine, unspecified formulation Jory Missler [facility] 12-04-2011 typhoid vaccine, unspecified formulation Jory Missler [facility] 06-21-2007 influenza virus vaccine, unspecified formulation Jory Missler [facility] 11-24-2006 HPV, unspecified formulation Jory Missler [facility] 11-24-2006 varicella virus vaccine Jacl ynn Missler [facility] 03-31-2006 tetanus toxoid, redu stephon diphtheria toxoid, and acellular pertussis vaccine, adsorbed Jory Doran [facility] 04-25-2003 influenza, whole Jory Mis sler [facility] 05-09-2002 influenza, whole Jory Mis sler [facility] 02-14-1998 DTaP, unspecified formulation Jory Doran [facility] 02-14-1998 measles, mumps and rubella virus vaccine Jory Doran [facility] 02-18-1995 varicella virus vaccine Blayne Doran [facility] 08-21-1994 DTaP, unspecified formulation Jory Doran [facility] 04-27-1994 haemophilus influenz ae type b vaccine, PRP-T conjugate Jory Doran [facility] 04-27-1994 measles, mumps and rubella virus vaccine Jory Doran [facility] 10-01-1993 hepatitis B vaccine, pediatric or pediatric/adolescent dosage Jory Doran [facility] 06-30-1993 DTaP, unspecified formulation Jory Doran [facility] 06-30-1993 Hib, unspecified formulation Jory Doran [facility] 04-21-1993 DTaP, unspecified formulation Jory Doran [facility] 04-21-1993 Hib, unspecified formulation Jory Missler [facility] 02-17-1993 DTaP, unspecified formulation Jory Missler [facility] 02-17-1993 hepatitis B vaccine, pediatric or pediatric/adolescent dosage [place]ory [place]ler [place] [facility] 02-17-1993 Hib, unspecified formulation Jory Missler [facility] 01-20-1993 hepatitis B vaccine, pediatric or pediatric/adolescent dosage Jory ler [facility] Payers Date Payer Category Payer Unknown [id number] 1992 Unknown [id number] 2.16.84 0.1.988784.3.579.2.1258 1992 Unknown [id number] 2.16.84 0.1.101890.3.579.2.1258 1992 Unknown [id number] 2.16.84 0.1.298373.3.579.2.1258 1992 Unknown [id number] 2.16.840 .1.762260.3.579.2.1258 1992 Unknown [id number] 2.16.840 .1.965914.3.579.2.1258 1992 Unknown [id number] 2.16.8 40.1.928765.3.579.2. 1992 Unknown [id number] 2.16.8 40.1.051175.3.579.2. 1992 Unknown [id number] 2.16.8 40.1.929801.3.579.2. 1992 Unknown [id number] 2.16.8 40.1.250616.3.579.2. 1992 Unknown [id number] 2.16.8 40.1.445706.3.579.2.727 1992 Unknown [id number] 2.16.8 40.1.118476.3.579.2.727 1992 Unknown [id number] 2.16.8 40.1.143041.3.579.2.727 1992 Unknown [id number] 2.16.8 40.1.386291.3.579.2.7 1992 Unknown [id number] 2.16.8 40.1.554351.3.579.2.727 1992 Unknown [id number] 2.16.8 40.1.461397.3.579.2.727 1992 Unknown [id number] 2.16.8 40.1.222792.3.579.2.727 1992 Unknown [id number] 2.16.8 40.1.540428.3.579.2.7 1992 Unknown [id number] 2.16.8 40.1.917811.3.579.2.727 1992 Unknown [id number] 2.16.8 40.1.583678.3.579.2.727 1992 Unknown [id number] 2.16.8 40.1.558246.3.579.2.727 1992 Unknown [id number] 2.16.8 40.1.791991.3.579.2.727 Social History Date Type Detail Facility Tobacco smoking status [facility] Sex Assigned At Female [facility] Tobacco smoking status No Smokin g Status Entered [facility] Start: 09-23-2022 End: 10-25-2023 Tobacco smoking status Never smoked tobacco (finding) [facility] Tobacco smoking status Never [facility] Functional Status Date Assessment Result Facility 10-25-2023 Functional Status N/A [facility] 10-04-2023 Functional Status N/A [facility] 07-07-2023 Functional Status N/A [facility] 04-30-2023 Functional Status N/A [facility] 01-19-2023 Functional Status N/A [facility] 09-23-2022 Functional Status N/A [facility] 07-24-2022 Functional Status N/A [facility] Clinical Notes 07-24-2022 to 10-25-2023 Laboratory Note Date & Type Note Facility 10-25-2023 Hospital Discharge instructions Follow Up Care 10/25/2023 13:53:55 With:Jory Monet Address: [address] [place] [address], [facility] [place] [address] When: Unknown [facility] 09-27-2023 Hospital Discharge instructions Patient Education 09/27/2023 10:53:08 Basics of Medicine Management Basics of Medicine Management Taking your medicines correctly is an important part of managing or preventing medical problems. Make sure you know what disease or condition your medicine is treating, and how and when to take it. If you do not take your medicine correctly, it may not work well and may cause unpleasant side effects, including serious health problems. What should I do when I am taking medicines? Read all the labels and inserts that come with your medicines. Review the information often and with each refill. Talk with your pharmacist if you get a refill and notice a change in the size, color, or shape of your medicines. Know the potential side effects for each medicine that you take. Try to get all your medicines from the same pharmacy. The pharmacist will have all your information and will understand how your medicines will affect each other (interact). Always carry an updated list of your medicines with you. If there is an emergency, a vp software support can quickly see what medicines you are taking. Tell your health care provider about all your medicines, including tqhq-pty-zeculdy medicines, vitamins, and herbal or dietary supplements. Your health care provider will make sure that nothing will interact with any of your prescribed medicines. How can I take my medicines safely? Take medicines only as told by your health care provider. ?Do not take more of your medicine than instructed. ?Do not take anyone else's medicines. ?Do not share your medicines with others. ?Do not stop taking your medicines unless your health care provider tells you to do so. ?You may need to avoid alcohol or certain foods or liquids when taking certain medicines. Follow your health care provider's instructions. Do not split, cut, crush, or chew your medicines unless your health care provider tells you to do so. Tell your health care provider if you have trouble swallowing your medicines. For liquid medicine, use the dosing container that was provided. Household spoons are not accurate. How should I organize my medicines? Know your medicines Know what each of your medicines looks like. This includes size, color, and shape. Tell your health care provider if you are having trouble recognizing all the medicines that you are taking. If you cannot tell your medicines apart because they look similar, keep them in the original bottles. If you cannot read the labels on the bottles, tell your pharmacist to put your medicines in containers with large print. Review your medicines and your schedule with family members, a friend, or a caregiver. Use a pill organizer Use a tool to organize your medicine schedule. Tools include a weekly pillbox, a written chart, a notebook, or a calendar. Your tool should help you remember the following things about each medicine: ?The name of the medicine. ?The amount (dose) to take. ?The schedule. This is the day and time the medicine should be taken. ?The appearance. This includes color, shape, size, and stamp. ?How to take your medicines. This includes instructions to take them with food, without food, with fluids, or with other medicines. Create reminders for taking your medicines. Use sticky notes, or use alarms on your watch, mobile device, or phone calendar. You may choose to use a more advanced management system. These systems have storage, alarms, and visual and audio prompts. Some medicines can be taken on an as-needed basis. These may include medicines for nausea, constipation, pain, cough and cold, allergies, and anxiety. If you take an as-needed medicine, write down the name and dose, as well as the date and time that you took it. How should I plan for travel? Take your pillbox, medicines, and organization system with you when traveling. Have your medicines refilled before you travel. This will ensure that you do not run out of your medicines while you are away from home. Always carry an updated list of your medicines with you. If there is an emergency, a vp software support can quickly see what medicines you are taking. Do not pack your medicines in checked luggage in case your luggage is lost or delayed. Keep your medicines in your carry-on bag. If any of your medicines is considered a controlled substance, make sure you bring a letter from your health care provider with you. How should I store and discard my medicines? For safe storage: Store medicines in a cool, dry area away from light, or as directed by your health care provider. Do not store medicines in the bathroom. Heat and humidity will affect them. Do not store your medicines with other chemicals or with medicines for pets or other household members. Keep medicines away from children and pets. Do not leave them on counters or bedside tables. Store them in high cabinets or on high shelves. For safe disposal: Check expiration dates regularly. Do not take medicines. Discard medicines that are older than the expiration date. Learn a safe way to dispose of your medicines. You may: ?Use a local government, hospital, or pharmacy qgztzaie-qard-jlep program. ?If you cannot return the medicine, check the label or package insert to see if the medicine should be thrown out in the garbage or flushed down the toilet. If you are not sure, ask your health care team. ?If it is safe to put the medicine in the trash, empty the medicine out of the container. Mix the medicine with cat litter, dirt, coffee grounds, or another unwanted substance. Seal the mixture in a bag or container. Put it in the trash. What should I remember? Tell your health care provider if you: ?Experience side effects. ?Have new symptoms. ?Feel that your medicine is no longer working. ?Have other concerns about taking your medicines. Review your medicines regularly with your health care provider. Other medicines, diet, medical conditions, weight changes, and daily habits can all affect how medicines work. Ask if you need to continue taking each medicine, and discuss how well each one is working. Refill your medicines early to avoid running out of them. In case of an accidental overdose, call your local poison control center at or go to your local emergency department right away. Summary Taking your medicines correctly is an important part of managing or preventing medical problems. You need to make sure that you understand what you are taking a medicine for, as well as how and when you need to take it. Use a tool to organize your medicine schedule. Tools include a weekly pillbox, a written chart, a notebook, or a calendar. In case of an accidental overdose, call your local Poison Control Center at or go to your local emergency department right away. This information is not intended to replace advice given to you by your health care provider. Make sure you discuss any questions you have with your health care provider. Document Revised: 02/24/2022 Document Reviewed: 02/24/2022 [employer] Patient Education 2022 FRS. 09/27/2023 10:53:00 Attention Deficit Hyperactivity Disorder, Adult Attention Deficit Hyperactivity Disorder, Adult Attention deficit hyperactivity disorder (ADHD) is a mental health disorder that starts during childhood. For many people with ADHD, the disorder continues into the adult years. Treatment can help you manage your symptoms. There are three main types of ADHD: Inattentive. With this type, adults have difficulty paying attention. This may affect cognitive abilities. Hyperactive-impulsive. With this type, adults have a lot of energy and have difficulty controlling their behavior. Combination type. Some people may have symptoms of both types. What are the causes? The exact cause of ADHD is not known. Most experts believe a person's genes and environment possibly contribute to ADHD. What increases the risk? The following factors may make you more likely to develop this condition: Having a first-degree relative such as a parent, brother, or sister, with the condition. Being born before 37 weeks of (prematurely) or at a low weight. Being born to a mother who smoked tobacco or drank alcohol during . Having experienced a brain injury. Being exposed to lead or other toxins in the womb or early in life. What are the signs or symptoms? Symptoms of this condition depend on the type of ADHD. Symptoms of the inattentive type include: Difficulty paying attention or following instructions. Often making simple mistakes. Being disorganized. Avoiding tasks that require time and attention. Losing and forgetting things. Symptoms of the hyperactive-impulsive type include: Restlessness. Talking out of turn, interrupting others, or talking too much. Difficulty with: ?Sitting still. ?Feeling motivated. ?Relaxing. [...] primary care provider or a mental health primary care nurse practitioner. Your health care provider may use a [...] ability to control your symptoms. A non-stimulant medicine. These medicines can also [...] Behavioral management. You may work with a conditioning coach who is specially trained to help people with ADHD manage and organize activities and function more effectively. Follow these instructions at home: Medicines Take dyrw-nkb-zdtgmpz and prescription medicines only as told by your health care provider. Talk with your health care provider about the possible side effects of your medicines and how to manage them. Alcohol use Do not drink alcohol if: ?Your health care provider tells you not to drink. ?You are , may be , or are planning to become . If you drink alcohol: ?Limit how much you use to: ?0 1 drink a day for women. ?0 2 drinks a day for men. ?Know how much alcohol is in your drink. In the [place] one drink equals one 12 oz bottle of beer (355 mL), one 5 oz glass of wine (148 mL), or one 1 oz glass of hard liquor (44 mL). Lifestyle Do not use illegal drugs. Get enough sleep. Eat a healthy diet. [...] on time and organized. Keep all follow-up visits. Your health care provider will need to monitor your condition and adjust your treatment over time. Where to find more information A health care provider may be able to recommend resources that are available online or over the phone. You could start with: Attention Deficit Disorder Association (ADDA): add.org National [place] of Mental Health ([facility]): nimh.nih.gov Contact a health care provider if: Your symptoms continue to cause problems. You have side effects from your medicine, such as: ?Repeated muscle twitches, coughing, or speech outbursts. ?Sleep problems. ?Loss of appetite. ?Dizziness. ?Unusually fast heartbeat. ?Stomach pains. ?Headaches. You are struggling with anxiety, depression, or substance abuse. Get help right away if: You have a severe reaction to a medicine. This symptom may be an emergency. Get help right away. Call 911. Do not wait to see if the symptom will go away. Do not drive yourself to the hospital. Take one of these steps if you feel like you may hurt yourself or others, or have thoughts about taking your own life: Go to your nearest emergency room. Call 911. Call the National Suicide Prevention Lifeline at or 697. This is open 24 hours a day Text the Crisis Text Line at 980091. Summary ADHD is a mental health disorder that starts during childhood and often continues into your adult years. The exact cause of ADHD [...] with your health care provider. Document Revised: 11/06/2022 Document Reviewed: 11/06/2022 [employer] Patient Education 2022 FRS. Follow Up Care 07/16/2023 09:49:12 With:Jory Monet Address: [address], [place] [address]- When:Within 3 Month(s) Comments:f/u ADHD, med recheck [facility] 07-07-2023 Hospital Discharge instructions Patient Education 07/07/2023 16:13:52 Constipation, Adult [...] as fried or sweet foods. These include slovenian fries, hamburgers, cookies, candies, and soda. Drink enough fluid to keep your urine pale yellow. General instructions Exercise regularly or as told by your health care provider. Try to do 150 minutes of moderate exercise each week. Use the bathroom when you have the urge to go. Do not hold it in. Take hhtl-cda-rqrseyn and prescription medicines only as told by [...] to keep your urine pale yellow. Take qmfg-irn-wnxjhon and prescription medicines only as told by your health care provider. This includes any fiber supplements. This information is not intended to replace advice given to you by your health care provider. Make sure you discuss any questions you have with your health care provider. Document Revised: 06/05/2020 Document Reviewed: 06/05/2020 [employer] Patient Education 2022 FRS. Follow Up Care 07/07/2023 13:26:20 With:Jory Doran Address: [address] [place] [id number] [facility] (1) When:07/10/2023 16:11:14 Comments:Call the office of [...] no results drink the other 1 tomorrow. [facility] 04-26-2023 Hospital Discharge instructions Patient Education 04/26/2023 07:02:54 BMI for [...] numbers. This can be done either in [place] ([place] or metric measurements. Note that charts and online BMI calculators are available to help you find your BMI quickly and easily without having to do these calculations yourself. To calculate your BMI in [place] ([place] measurements: 1.Measure your weight in pounds [...] Centers for Disease Control and Prevention: www.cdc.gov [place] Heart Association: www.heart.org National Heart, Lung, and Blood [place]: www.nhlbi.nih.gov Summary Body mass index (BMI) is a number that is calculated from a person's weight and height. BMI may help estimate how much of a person's weight is composed of fat. BMI can help identify those who may be at higher risk for certain medical problems. BMI can be measured using Armenian measurements or metric measurements. BMI charts are used to identify whether you are underweight, normal weight, overweight, or obese. This information is not intended to replace advice given to you by your health care provider. Make sure you discuss any questions you have with your health care provider. Document Revised: 04/10/2020 Document Reviewed: 02/16/2020 [employer] Patient Education 2022 FRS. 04/26/2023 07:02:53 Attention Deficit Hyperactivity Disorder, Adult [...] primary care provider or a mental health primary care nurse practitioner. Your health care provider may use a [...] Behavioral management. You may work with a conditioning coach who is specially trained to help people with ADHD manage and organize activities and function more effectively. Follow these instructions at home: Medicines Take agjz-len-qzqibje and prescription medicines only as told by [...] Attention Deficit Disorder Association (ADDA): www.add.org National [place] of Mental Health (NIMH): www.nimh.nih.gov Contact a [...] the National Suicide Prevention Lifeline at or 189 in the [place] This is open 24 [...] provider. Document Revised: 02/11/2022 Document Reviewed: 12/11/2019 [employer] Patient Education 2022 FRS. Follow Up Care 03/25/2023 08:48:35 With:Jory Monet Address: [address] [place] [address], [facility] [place] [address]- When:Within 3 Month(s) Comments:f/u ADHD, med recheck [facility] 01-19-2023 Evaluation + Plan note Future Scheduled TestsTSH With T4fr Reflex 01/19/23CBC w/ Auto Diff 01/19/23Comprehensive Metabolic Panel 01/19/23Lipid Panel 01/19/23 [facility] 01-19-2023 Hospital Discharge instructions Patient Education 01/19/2023 08:21:02 Health Maintenance, [...] provider. Document Revised: 12/08/2021 Document Reviewed: 12/08/2021 [employer] Patient Education 2022 FRS. 01/19/2023 08:20:59 Exercising to Lose Weight Exercising [...] your health care provider or diet and food and nutrition services supervisor (dietitian). This may include: ?Eating fewer calories. [...] provider. Document Revised: 09/14/2021 Document Reviewed: 09/14/2021 [employer] Patient Education 2022 FRS. 01/19/2023 08:20:57 Calorie Counting for Weight Loss [...] provider. Document Revised: 08/29/2020 Document Reviewed: 08/29/2020 [employer] Patient Education 2022 FRS. 01/19/2023 08:20:56 BMI for Adults BMI for [...] numbers. This can be done either in [place] ([place] or metric measurements. Note that charts and online BMI calculators are available to help you find your BMI quickly and easily without having to do these calculations yourself. To calculate your BMI in Armenian ([place] measurements: 1.Measure your weight in pounds [...] Centers for Disease Control and Prevention: www.cdc.gov [place] Heart Association: www.heart.org National Heart, Lung, and Blood [place]: www.nhlbi.nih.gov Summary Body mass index (BMI) is a number that is calculated from a person's weight and height. BMI may help estimate how much of a person's weight is composed of fat. BMI can help identify those who may be at higher risk for certain medical problems. BMI can be measured using Armenian measurements or metric measurements. BMI charts are used to identify whether you are underweight, normal weight, overweight, or obese. This information is not intended to replace advice given to you by your health care provider. Make sure you discuss any questions you have with your health care provider. Document Revised: 04/10/2020 Document Reviewed: 02/16/2020 [employer] Patient Education 2022 FRS. 01/19/2023 08:20:55 Attention Deficit Hyperactivity Disorder, Adult [...] primary care provider or a mental health primary care nurse practitioner. Your health care provider may use a [...] Behavioral management. You may work with a conditioning coach who is specially trained to help people with ADHD manage and organize activities and function more effectively. Follow these instructions at home: Medicines Take decq-ynf-yvyxnin and prescription medicines only as told by [...] Attention Deficit Disorder Association (ADDA): www.add.org National [place] of Mental Health (NIMH): www.nimh.nih.gov Contact a [...] the National Suicide Prevention Lifeline at or 494 in the [place] This is open 24 [...] provider. Document Revised: 02/11/2022 Document Reviewed: 12/11/2019 [employer] Patient Education 2022 FRS. Follow Up Care 01/18/2023 08:48:37 With:Jory Monet Address: [address] [place] [address], [facility] [address]- When:Within 3 Month(s) Comments:f/u ADHD [facility] 09-23-2022 Hospital Discharge instructions Patient Education 09/23/2022 16:39:31 BMI for [...] height. This can be done either in [place] ([place] or metric measurements. Note that charts are available to help you find your BMI quickly and easily without having to do these calculations yourself. To calculate your BMI in Armenian ([place] measurements, your health care provider will: [...] medical problems. BMI can be measured using Armenian measurements or metric measurements. To interpret your [...] 03/30/2005 Document Revised: 07/01/2018 Document Reviewed: 06/01/2018 [employer] Patient Education 2020 FRS. 09/23/2022 16:39:29 Attention Deficit Hyperactivity Disorder, Adult [...] primary care provider or a mental health primary care nurse practitioner. Your health care provider may use a [...] Behavioral management. You may work with a conditioning coach who is specially trained to help people with ADHD manage and organize activities and function more effectively. Follow these instructions at home: Medicines Take vxvn-heq-bxgsphp and prescription medicines only as told by [...] Attention Deficit Disorder Association (ADDA): www.add.org National [place] of Mental Health (NIMH): www.nimh.nih.gov Contact a [...] 03/10/2018 Document Revised: 12/11/2019 Document Reviewed: 12/11/2019 [employer] Patient Education 2019 FRS. Follow Up Care 09/17/2022 12:43:24 With:Jory Monet Address: [address], [place] [address]- When:Within 3 Month(s) Comments:f/u ADHD [facility] 07-25-2022 Hospital Discharge instructions Patient Education 07/24/2022 23:42:28 Nausea and Vomiting, Adult, Deqd-tt-Tnyz Nausea and Vomiting, Adult Nausea is feeling [...] fruit juice). ?Low-calorie sports drinks. Eat bland, umrq-km-lavwjo foods in small amounts as you are able, such as: ?Bananas. ?Applesauce. ?Rice. ?Low-fat (lean) meats. ?Halesite. ?Crackers. Avoid drinking fluids that have a lot of sugar or caffeine in them. This includes energy drinks, sports drinks, and soda. Avoid alcohol. Avoid spicy or fatty foods. General instructions Take rzbx-apa-ckperip and prescription medicines only as told by your doctor. Drink enough fluid to keep your pee (urine) pale yellow. Wash your hands often with soap and water. If you cannot use soap and water, use hand brake machine operator. Make sure that all people in your [...] too much water in your body. Take bejk-qnw-wpvrecj and prescription medicines only as told by [...] 01/04/2009 Document Revised: 11/10/2019 Document Reviewed: 12/27/2018 [employer] Patient Education 2020 FRS. 07/24/2022 23:42:28 Diarrhea, Adult, Peta-rm-Dcvl Diarrhea, Adult Diarrhea is when you pass [...] sugar or caffeine in them. Eat bland, cfuw-vf-vdretb foods in small amounts as you are able. These foods include: ?Bananas. ?Applesauce. ?Rice. ?Low-fat (lean) meats. ?Halesite. ?Crackers. Avoid alcohol. Avoid spicy or fatty foods. Medicines Take puvk-itl-vdgyadn and prescription medicines only as told by your doctor. If you were prescribed an antibiotic medicine, take it as told by your doctor. Do not stop using the antibiotic even if you start to feel better. General instructions Wash your hands often using soap and water. If soap and water are not available, use a hand brake machine operator. Others in your home should wash their [...] sold at pharmacies and stores. Eat bland, yica-fi-tklkej foods in small amounts as you are [...] 01/04/2009 Document Revised: 12/23/2018 Document Reviewed: 12/23/2018 [employer] Patient Education 2020 FRS. Follow Up Care 07/24/2022 20:30:40 With:Elina Jean Address: [place] [address] Business (1) When:07/27/2022 Comments:You can use the Zofran, Bentyl as prescribed as needed for pain and nausea. Please follow-up with your primary care doctor in the next 2 to 3 days. Please return to the ED for any new or worsening symptoms. [facility] 07-24-2022 Evaluation + Plan note Extrac [...] Diagnostic Tests Pending * Urine [facility] No data available for this section [facility] App[facility]ments Appointment Date:04/30/2023 07:00:00 AM Scheduled Provider:Jory Monet Location:[facility] Appointment Type: Open Future Scheduled Tests Laboratory* TSH With T4fr Reflex 01/19/23 * CBC w/ Auto Diff 01/19/23 * Comprehensive Metabolic Panel 01/19/23 * Lipid [facility]ments Appointment Date:07/30/2023 07:00:00 AM Scheduled Provider:Jroy Monet Location:[facility] Appointment Type: Open Future Scheduled Tests Laboratory* TSH With T4fr Reflex 01/19/23 * CBC w/ Auto Diff 01/19/23 * Comprehensive Metabolic Panel 01/19/23 * Lipid Panel 01/19/23 [facility] Primary Care Evaluation + Plan note Future Appointments Appointment Date:07/16/2023 09:20:00 AM Scheduled Provider:Jory Monet Location:[facility] Appointment Type: Open Future Scheduled Tests Laboratory* TSH With T4fr Reflex 01/19/23 * CBC w/ Auto Diff 01/19/23 * Comprehensive Metabolic Panel 01/19/23 * Lipid [facility] Appointment Date:10/05/2023 09:20:00 AM Scheduled Provider:Jory Monet Location:[facility] Appointment Type:FM Open Future Scheduled Tests Laboratory* TSH With T4fr Reflex 01/19/23 * CBC w/ Auto Diff 01/19/23 * Comprehensive Metabolic Panel 01/19/23 * Lipid [facility] App[facility]ments Appointment Date:10/05/2023 09:20:00 AM Scheduled Provider:Jory Monet Location:[facility] Appointment Type:FM Open Diagnostic Tests Pending * AFP Maternal 09/03/23 Future Scheduled Tests Laboratory* TSH With T4fr Reflex 01/19/23 * CBC w/ Auto Diff 01/19/23 * Comprehensive Metabolic Panel 01/19/23 * Lipid [facility] App[facility] Appointment Date:01/03/2024 11:20:00 AM Scheduled Provider:Jory Monet Location:[facility] Appointment Type:FM Open Future Scheduled Tests Laboratory* TSH With T4fr Reflex 01/19/23 * CBC w/ Auto Diff 01/19/23 * Comprehensive Metabolic Panel 01/19/23 * Lipid Panel 01/19/23 [facility] Primary Care Evaluation + Plan note Future Appointments Appointment Date:01/18/2024 08:00:00 AM Scheduled Provider:Jory Monet Location:[facility] Appointment Type:FM Open Future Scheduled Tests Laboratory* TSH With T4fr Reflex 01/19/23 * CBC w/ Auto Diff 01/19/23 * Comprehensive Metabolic Panel 01/19/23 * Lipid Panel [facility]19[facility]23 [facility] No data available for this section [facility] No data available for this section [facility] Summary Purpose Family History No Family History Records Found Advance Directives No Advanced Directives Records FoundNo Advanced Directives Records Found Additional Source Comments Patient Care team informatio n (unrecognized section and content) Personnel Name: Elina Jean MD Address: Address: [address] [place] Personnel Name: Elina Jean MD Address: Address: [address] [place] Personnel Name: Jory Monet Address: Address: [address], [address] Personnel Name: Espinoza PARIMUTUEL CLERKBaljitCJory Address: Address: [address], [address] Personnel Name: Espinoza PARIMUTUEL CLERKBaljitCJory Address: Address: [address], [address] Personnel Name: Espinoza PARIMUTUEL CLERKBaljitCJory Address: Address: [address], [address] Personnel Name: aniket HAMILTONBaljitCJory Address: Address: [address], [address] Personnel Name: Espinoza PARIMUTUEL CLERKBaljitCJory Address: Address: [address], [address] Personnel Name: Espinoza JOY-CJory Address: Address: [address], [address] Personnel Name: Espinoza PARIMUTUEL CLERK-CJory Address: Address: [address], [address] Personnel Name: Espinoza JOY-CJory Address: Address: [address], [address] Personnel Name: Espinoza JOY-CJory Address: Address: [address], [address] Personnel Name: Espinoza JOY-CJory Address: Address: [address], [address] Personnel Name: Jory Rascon Address: Address: [address], [address] Personnel Name: Jory Monet Address: Address: [address] [place] [address]- Personnel Name: Jory Monet Address: Address: [address], [place] [address]- INFORMATION SOURCE (unrecogn ized section and content) DATE CREATED AUTHOR 10/26/2023 [facility] DATE CREATED AUTHOR AUTHOR'S ORGANIZ ATION 10/26/2023 [facility] FOR RECORDS PERTAINING TO PATIENTS WHO [...] BE BASED ON THE PRIMARY CLINICAL RECORDS. [facility] [employer] [facility]. provides no warranty or guarantee of the accuracy or completeness of information in this document.
[2023-11-04 09:19] LABS: Basophils Percent Auto 0.3 % (0.2-2.0); Eosinophils Absolute Auto 0.2 10^3/uL (0.0-0.7); Eosinophils Percent Auto 1.7 % (0.9-7.0); Hematocrit 31.8 % (36.0-48.0); Hemoglobin 10.2 g/dL (12.0-16.0); Immature Granulocytes Abs Auto 0.08 10^3/uL (0.00-0.03); Immature Granulocytes Pct Auto 0.7 % (0.0-0.5); Lymphocytes Absolute Auto 1.4 10^3/uL (1.2-3.8); Lymphocytes Percent Auto 12.7 % (20.5-60.0); Mean Corpuscular HGB Conc 32.1 g/dL (29.9-35.2); Mean Corpuscular Hemoglobin 28.2 pg (26.7-34.0); Mean Corpuscular Volume 87.8 fL (81.0-99.0); Mean Platelet Volume 9.8 fL (9.5-13.5); Monocytes Absolute Auto 0.5 10^3/uL (0.3-0.8); Monocytes Percent Auto 4.7 % (1.7-12.0); Neutrophils Absolute Auto 8.8 10^3/uL (1.4-6.5); Neutrophils Percent Auto 79.9 % (43.0-75.0); Platelet Count 292 10^3/uL (150-450); Red Blood Count 3.62 10^6/uL (4.20-5.40); Red Cell Distribution Width 13.8 % (11.0-15.0)
[2023-11-04 10:29] LABS: Glucose 1 Hour 223 mg/dL (<130)
== END 2023-11-04 07:24 | disposition home or self-care (01) ==
LOC: LAB 07:23
PROVIDERS: Visit Provider Obstetrics & Gynecology
DX: Z13.1 Encounter for screening for diabetes mellitus (principal)
CPT/HCPCS: 36415; 82950; 85025

== ENCOUNTER 2023-11-05 07:30 | Outpatient (OUT) | payer BC, SELFPAY ==
--- OUTSIDE RECORDS SUMMARY | 2023-11-05 07:32 | XMS_ITS | CCD ---
Author Organization [facility] Care Team Providers Care Dog Races Manager Name Role Phone Elina Jean Primary Care Physician [phone] Jory Doran Primary Care Physician [phone] RITA SALINAS Attending Unavailable MIRLANDE BLAIR Attending [...] Admitting Unavailable EDGARD, Mirlande R Attending Unavailable DEGARD, Mirlande R Admitting Unavailable RITA SALINAS Admitting [...] [atomoxetine] Drug Allergy Drug-induced acute pancreatitis (disorder) [facility] Medications Current Medications Medication Drug Class(es) Dates [...] current use of drug therapy; Translations: [Other nursing home (current) drug therapy] Onset: 01-19-2023 Episodic Other [...] with voice recognition software. Occasional wrong-word or ?nzcry-o-caqw? substitutions may have occurred due to the [...] did not feel like driving back to [place]. Came in for further evaluation today. Symptoms [...] result. Discussed with patient close follow-up with EMERGENCY SPECIALIST she should contact their office to discuss treatment with Tamiflu. Also discussed wisb-qix-fxwsixi medications that may be of benefit discussed continuation of euwc-avv-ugoejir Tylenol as needed for body aches or [...] with her (more content not included)... Normal [facility] Comment on above: Result Comment: Elec tronically [...] health care provider may recommend: ? Taking oyfg-rdf-mfkpnvk medicines. ? Drinking plenty of fluids. In [...] and low-calorie sports drinks. ? Eat bland, tpwc-lc-kppbev foods in small amounts as you are able. These foods include bananas, applesauce, rice, lean meats, toast, and crackers. ? Avoid drinking fluids that contain a lot of sugar or caffeine, such as energy drinks, regular sports drinks, and soda. ? Avoid alcohol. ? Avoid spicy or fatty foods. General instructions ? Take cblx-kbv-hfaufiz and prescription medicines only as told by [...] water are not available, use alcohol-based hand color maker. ? Keep all follow-up visits. This is [...] ? Deve (more content not included)... Normal [facility] Ambulatory Visit Summaryon 0 10-25-2023 Ambulatory Visit [...] 8:00 AM EDT With: Jory Monet Where: [facility] Primary Care [facility] US Follow Upon US Follow Up Exam [...] Fluid Volume ALFREDO (cm) 16.8 Normal Normal [facility] Consent for Treatmenton 10-01 Consent for Treatment [id number] #1.00TIFF Normal [facility] RAD - MISCon 10-20-2023 RAD - MISC [id number] 9#1.00TIFF Normal [facility] Physician Orderon 10-18-2023 Physician Order [id number] #1.00TIFF [facility] Medication Consenton 024 Medication Consent [id number] #1.00TIFF [facility] Ambulatory Visit Summaryon 0 10-04-2023 Ambulatory Visit [...] recheck Where: [address], [place] [address]- Medications What How Much When Why Instructions [...] you. If there is an emergency, a junior systems engineer can quickly see what medicines you are taking. ? Tell your health care provider about all your medicines, including olay-gnx-llmkwwx medicines, vitamins, and herbal or dietary supplements. [...] organizer ? (more content not included)... Normal [facility] Family Medicine Office/Clini c Noteon 10-04-2023 Family [...] Pt has placenta previa - doing US u4eqgzb for monitoring ADHD f/u: Symptoms are present [...] Mouth: mucous membranes pink, moist and intact. Ben Bolt posterior oropharynx, no palatal inflammation, uvula midline, [...] 3. High risk medication use (Z79.899: Other nursing home (current) drug therapy) 10/04/2023 14:04:30 I certify that I have reviewed the OARRS report and all PDMP information in this chart. Last fill was 09/29/23. Refill not due until 10/28/23. 4. BMI 31.0-31.9,adult (Z68.31: Body mass index [BMI] 31.0-31.9, adult) This is not accurate d/t pt's status Follow-up With When Contact Information Jory Monet In 3 months [address] [facility], [place] [address]- Additional Instructions: f/u ADHD, med [...] History Al (more content not included)... Normal [facility] Comment on above: Result Comment: Elec tronically [...] you. If there is an emergency, a junior systems engineer can quickly see what medicines you are taking. ? Tell your health care provider about all your medicines, including ochd-jxq-zcxynkf medicines, vitamins, and herbal or dietary supplements. [...] you. If there is an emergency, a junior systems engineer can quickly see what medicines you are [...] shelves. Fo (more content not included)... Normal [facility] AFP Maternalon 09-08-2023 AFP [Mass/Vol] 34.6 ng/mL Invalid Interpretation Code [facility] Comment on above: Performed By: #### 1 [id number] ####[facility] [address] [place] [address] AFP [MoM] 0.87 Invalid Interpretation Code [facility] Comment on above: Performed By: #### 1 [id number] ####[facility] [address] [place] [address] AFP Comment Comment Invalid Interpretation Code [facility] Comment on above: Result Comment: Maximo Whitaker, Ph.D., [facility] Director References: Available Upon Request. Multiples Of Median Cutoffs For AFP Elevations Da Silva 2.5 Black 2.8 IDD 2.0 Twins 4.5 Abbreviation Definitions IDD - Insulin Dep Diabetes OSBR - Open Spina Bifida Risk For further inquiries contact [facility] at [phone]. This test was developed and its performance characteristics determined by [employer]. It has not been cleared or approved by the Food and Drug Administration. Performed at: [facility] [address] [facility], [place] [id number] [facility] Yuri Albert Performed By: #### 1 [id number] ####[place] [address] [place] [address] AFP interpretation [Interp] Negative Invalid Interpretation Code [facility] Comment on above: Performed By: #### 1 [id number] ####[facility] [address] [place] [address] AFP interpretation Edmundo [Interp] Comment Invalid Interpretation Code [facility] Comment on above: Result Comment: Inte rpretation: [...] Customer Services to discuss available options. The [place] [employer] recommends amniocentesis be offered to women age 35 and older. Performed By: #### 1 [id number] ####[facility] [address] [place] [address] AFP Maternal Report Invalid Interpretation Code [facility] Comment on above: Performed By: #### 1 [id number] ####[facility] [address] [place] [address] AGE.AT DELIVERY:TIME:PT: 31.1 Invalid Interpretation Code [facility] Comment on above: Performed By: #### 1 [id number] ####[place] [address] GESTATIONAL AGE METHOD:PRID:PT: Ultrasound Invalid Interpretation Code [facility] Comment on above: Result Comment: 16:6 on 08/23/2023 Recalculations are not recommended when gestational dating by LMP and ultrasound are within 10 days. Performed By: #### 1 [id number] ####[place] [address] GESTATIONAL AGE:TIME:PT: 18.4 week(s) Invalid Interpretation Code [facility] Comment on above: Performed By: #### 1 [id number] ####[place] [address] INSULIN DEPENDENT DIABETES MELLITUS:PRTHR:PT: No Invalid Interpretation Code [facility] Comment on above: Performed By: #### 1 [id number] ####[place] [address] MULTIPLE :FIND:PT: No Invalid Interpretation Code [facility] Comment on above: Performed By: #### 1 [id number] ####[place] [address] NEURAL TUBE DEFECT RISK:LIKELIHOOD:PT: 86574 Invalid Interpretation Code [facility] Comment on above: Performed By: #### 1 [id number] ####[place] [id number] RACE:TYPE:PT: Invalid Interpretation Code [facility] Comment on above: Performed By: #### 1 [id number] ####[place] [id number] Physician Orderon 09-08-2023 Physician Order [id number] 3#1.00TIFF Normal [facility] CHEMISTRYOrdered By: SYSTEM SYSTEM on 09-03-2023 TSH Qn 0.66 m[IU]/L Normal 0.34 - 5.60 mcIU/mL Remisol Chem Consent for Treatmenton Consent for Treatment [id number] #1.00TIFF Normal [facility] Consent for Treatment [id number] #1.00TIFF Normal [facility] Physician Orderon 09-03-2023 Physician Order [id number] 47#1.00TIFF Normal [facility] TSHon 09-03-2023 TSH Qn 0.66 m[IU]/L Normal 0.34-5.60 [facility] Comment on above: Performed By: #### 2 [id number] ####[facility] [address] [place] [address] Ambulatory Visit Summaryon 09-16-2022 Ambulatory Visit Summary [...] ADHD, med recheck Where: [address], [facility] [place] [address]- Medications What How Much When Why Instructions [...] numbers. This can be done either in [place]adian ([place] or metric measurements. Note that charts and online BMI calculators are available to help you find your BMI quickly and easily without having to do these calculations yourself. To calculate your BMI in [place]adian ([place] measurements: 1. Measure your weight in [...] build (more content not included)... Normal [facility] Family Medicine Office/Clini c Noteon 07-16-2023 Family [...] Mouth: mucous membranes pink, moist and intact. Ben Bolt posterior oropharynx, no palatal inflammation, uvula midline, [...] cap(s), Oral, qAM, 30 cap(s), Refill(s) 0, Combined Effort #[id number], 168, cm, 07/16/23 9:27:00 EST, Height/Length Dosing, 83.5, kg, 07/16/23 9:27:00 EST, Weight Dosing 2. High risk medication use (Z79.899: Other nursing home (current) drug therapy) 07/16/2023 09:39:17 I certify [...] Information Jory Monet In 3 months [address], [place] [address]- Additional Instructions: f/u ADHD, med recheck Patient Education BMI for Adults Attention Def (more content not included)... Normal [facility] Comment on above: Result Comment: Elec tronically [...] care provider or a mental health rn primary care. Your health care provider may use [...] Behavioral management. You may work with a field hockey and lacrosse coach who is specially trained to help people with ADHD manage and organize activities and function more effectively. Follow these instructions at home: Medicines ? Take dddx-cpj-fhpynrc and prescription medicines only as told by [...] Follow th (more content not included)... Normal [facility] ED Note-Physicianon 07-08-20 ED Note-Physician Basic Information [...] Doran In 3 days 07/10/2023 EST [address] [facility] [place] [address] Business (1) Additional Instructions: Call the office [...] Denies Substance Abuse, (more content not included)... [facility] Comment on above: Result Comment: Elec tronically Signed By: Rik Crespo DO\.br\Date and Time Signed: 07/08/23 08:26 EST Consent for Treatmenton Consent for Treatment [id number] 4#1.00TIFF [facility] Discharge Instructionson Discharge Instructions [id number] 4#1.00TIFF [facility] ED Clinical Summaryon 2022 ED Clinical Summary [address] [address] ED Clinical Summary Person Information Name: JOSIE TOMLIN No [place] Age: 32 Years : 1990 Sex: Female Language: Grenadian PCP: Jory Monet Marital Status: Single MRN: [...] 07/07/2023 16:18:46 07/07/2023 16:18:46 07/07/2023 16:18:46 ADDRESS: [address] [place] [id number] PHYS DOC NOTES: MEDICAL INFORMATION: Prescriptions Given: Medications to Continue with No Changes Other Medications amphetamine-dextroam phetamine (Adderall XR 5 mg oral capsule, extended release) 1 Capsules By Mouth once a day (in the morning). Refills: 0. levocetirizine (Xyzal 5 mg oral tablet) multivitamin PATIENT EDUCATION INFORMATION: Instructions: Constipation, Adult Follow up: With: Address: When: Jory Doran [address] [place] [address], [facility] [place] [address] [facility] (1) In 3 days 07/10/2023 Comments: Call [...] other 1 tomorrow. DIAGNOSIS: Acute constipation Normal [facility] ED Patient Education Noteon 07-07-2023 ED Patient [...] Do not hold it in. ? Take nwct-utf-mzpwiok and prescription medicines only as told by [...] keep your urine pale yellow. ? Take sjux-igm-ccozbzl and prescription medicines only as told by your health care provider. This includes any fiber supplements. This information is not intended to replace advice given to you by your health care provider. Make sure you discuss any questions you have with your health care provider. Document Revised: 06/05/2020 Document Reviewed: 06/05/2020 Elsevier Patient Education ? 2022 Banjo. Normal [facility] ED Patient Summaryon 023 ED Patient Summary [address] [address] Patient Discharge Instructions Person Information Name: JOSIE TOMLIN Age: 32 Years Arrival Date: 07/07/2023 13:22:40 Discharge Diagnosis: Acute constipation Primary Care Physician: Espinoza HARDEN, Jory Owusu Provider Information Primary Provider: Rik Crespo DO [employer] Fisherman:None The exam and treatment you received in the Emergency Department were for an urgent problem and are not intended as complete care. It is important that you follow up with a doctor, nurse practitioner, or physician?s assistant golf professional for ongoing care. If your symptoms become worse or you do not improve as expected and you are unable to reach your usual health care provider, you should return to the Emergency Department. We are available 24 hours a day. JOSIE TOMLIN has been given the following list of patient education materials, prescriptions and follow-up instructions: Follow-up Instructions: With: Address: When: Joyr Doran [address] [place] [address] [place] [address] Business (1) In 3 days [...] opioids can be used to help relieve kybwdvvi-av-cmdvmz pain and are often prescribed following a [...] take op (more content not included)... Normal [facility] RAD - Consent to Procedureon 07-07-2023 RAD - Consent to Procedure [id number] 2#1.00TIFF Normal [facility] UA With Cult Reflexon 2022 Bacteria LM Ql (Urine sed) TRACE Normal Trace [facility] Comment on above: Performed By: #### 1 [id number] ####[facility] [address] [place] [address] Bilirubin Ql (U) Negative Normal Negative [facility] Comment on above: Performed By: #### 1 [id number] ####[facility] [address] [place] [address] Clarity (U) CLEAR Normal Clear [facility] Comment on above: Performed By: #### 1 [id number] ####[facility] [address] [place] [address] Color (U) YELLOW Normal Yellow [facility] Comment on above: Performed By: #### 1 [id number] ####[facility] [address] [place] [address] Epithelial cells.squamous LM.HPF (Urine sed) [#/Area] 0-2 Normal 0-2 [facility] Comment on above: Performed By: #### 1 [id number] ####[facility] [address] [place] [address] Glucose Test strip (U) [Mass/Vol] Negative Normal Negative [facility] Comment on above: Performed By: #### 1 [id number] ####[address] [address] Hemoglobin Ql (U) Negative Normal Negative [facility] Comment on above: Performed By: #### 1 [id number] ####[address] [address] Ketones (U) [Mass/Vol] 2+ Abnormal Negative [facility] Comment on above: Performed By: #### 1 [id number] ####[address] [address] [place].plasma/Lithiu m.RBC (Bld) [Mass ratio] 0-3 Normal 0-3 [facility] Comment on above: Performed By: #### 1 [id number] ####[address] [address] Mucus Ql (Urine sed) 1+ Normal [facility] Comment on above: Performed By: #### 1 [id number] ####[address] [address] Nitrite Ql (U) Negative Normal Negative [facility] Comment on above: Performed By: #### 1 [id number] ####[address] [address] pH (U) 5.5 [pH] Invalid Interpretation Code 5.0-9.0 [facility] Comment on above: Performed By: #### 1 [id number] ####[address] [address] Protein (U) [Mass/Vol] Negative Normal Negative [facility] Comment on above: Performed By: #### 1 [id number] ####[address] [address] Specific gravity (U) [Rel density] 1.025 Invalid Interpretation Code 1.005-1.030 [facility] Comment on above: Performed By: #### 1 [id number] ####[address] [address] Type of Urine collection method Clean Catch Normal [facility] Comment on above: Performed By: #### 1 [id number] ####[facility] [address] [place] [address] Urobilinogen Qn (U) 0.2 {Imelda'U}/dL Normal 0.0-1.0 [facility] Comment on above: Performed By: #### 1 [id number] ####[facility] [address] [place] [address] WBC Auto Ql (U) TRACE Abnormal Negative [facility] Comment on above: Performed By: #### 1 [id number] ####[facility] [address] [place] [address] WBC LM.HPF (Urine sed) [#/Area] 0-5 Normal 0-5 [facility] Comment on above: Performed By: #### 1 [id number] ####[facility] [address] [place] [address] URINALYSISOrdered By: Jaymie Hernandez on 07-07-2023 Bacteria [...] Interpretation Code Negative [facility] UA Auto SS [place].plasma/Lithiu m.RBC (Bld) [Mass ratio] 0-3 /HPF Normal [...] PM) Invalid Interpretation Code 1.005 - 1.030 [facility] UA Auto SS UA Spec Desc Clean Catch (07/07/23 3:12 PM) Normal [facility] UA Auto SS Urobilinogen Qn (U) 0.6813736 {Imelda'U}/dL Normal 0.0 - 1.0 EU/dL [facility] UA Auto SS WBC Auto Ql (U) Trace *ABN* (07/07/23 3:12 PM) Invalid Interpretation Code Negative [facility] UA Auto SS WBC LM.HPF (Urine sed) [#/Area] 0-5 /HPF Normal 0-5/HPF [facility] UA Auto SS XR Abdomen 1 Viewon [...] mGy = na DAP = na Normal [facility] BhCG Quanton 05-27-2023 HCG.beta subunit Qn 249 m[IU]/mL High 1-3 [facility] Comment on above: Result Comment: GEST ATIONAL AGE HCG RANGE (mIU/mL) NON- <1-3 0.2-1 WEEKS 5-50 1-2 WEEKS 50-500 2-3 WEEKS 100-5,000 3-4 WEEKS 500-10,000 4-5 WEEKS 1,000-50,000 5-6 WEEKS 10,000-100,000 6-8 WEEKS 15,000-200,000 8-12 WEEKS 10,000-100,000 Performed By: #### 2 [id number] ####[facility] [address] [place] [address] CHEMISTRYOrdered By: SYSTEM SYSTEM on 05-27-2023 HCG.beta [...] Treatmenton 05-03 Consent for Treatment [id number] #1.00TIFF Normal [facility] Physician Orderon 05-27-2023 Physician Order [id number] 4#1.00TIFF Normal [facility] BhCG Quanton 05-25-2023 HCG.beta subunit Qn 71 m[IU]/mL High 1-3 [facility] Comment on above: Result Comment: GEST ATIONAL AGE HCG RANGE (mIU/mL) NON- <1-3 0.2-1 WEEKS 5-50 1-2 WEEKS 50-500 2-3 WEEKS 100-5,000 3-4 WEEKS 500-10,000 4-5 WEEKS 1,000-50,000 5-6 WEEKS 10,000-100,000 6-8 WEEKS 15,000-200,000 8-12 WEEKS 10,000-100,000 Performed By: #### 2 [id number] ####[facility] [address] [place] [address] CHEMISTRYOrdered By: SYSTEM SYSTEM on 05-25-2023 HCG.beta [...] Treatmenton 05-03 Consent for Treatment [id number] #1.00TIFF Normal [facility] Physician Orderon 05-25-2023 Physician Order [id number] 3#1.00TIFF [facility] Ambulatory Visit Summaryon 0 04-30-2023 Ambulatory Visit [...] 7:00 AM EST With: Jory Monetce Where: [facility] Primary Care Normal [facility] Medicine Office/Clini c Noteon 04-30-2023 Family Medicine [...] Mouth: mucous membranes pink, moist and intact. Ben Bolt posterior oropharynx, no palatal inflammation, uvula midline, [...] 2. High risk medication use (Z79.899: Other intermediate project manager (current) drug therapy) 04/30/2023 07:28:10 I certify [...] Information Jory Monet In 3 months [address] [place] [address]- Additional Instructions: f/u ADHD, med recheck Patient Education BMI for Adults Attention Deficit Hyperactivity (more content not included)... Normal [facility] Comment on above: Result Comment: Elec tronically [...] care provider or a mental health rn primary care. Your health care provider may use [...] Behavioral management. You may work with a field hockey and lacrosse coach who is specially trained to help people with ADHD manage and organize activities and function more effectively. Follow these instructions at home: Medicines ? Take pqro-ovn-hymzmwm and prescription medicines only as told by [...] available online (more content not included)... Normal [facility] Quanton 04-09-2023 HCG.beta subunit Qn 1 m[IU]/mL Normal 1-3 [facility] Comment on above: Result Comment: GEST ATIONAL AGE HCG RANGE (mIU/mL) NON- <1-3 0.2-1 WEEKS 5-50 1-2 WEEKS 50-500 2-3 WEEKS 100-5,000 3-4 WEEKS 500-10,000 4-5 WEEKS 1,000-50,000 5-6 WEEKS 10,000-100,000 6-8 WEEKS 15,000-200,000 8-12 WEEKS 10,000-100,000 Performed By: #### 2 [id number] ####[facility] [address] [place] [address] CHEMISTRYOrdered By: SYSTEM SYSTEM on 04-09-2023 HCG.beta subunit Qn 1 m[IU]/mL Normal 1 - 3 mIU/mL FTM C Remisol Consent for Treatmenton Consent for Treatment [id number] #1.00CD:127 [facility] Physician Orderon 04-09-2023 Physician Order [id number] #1.00CD:127 [facility] BhCG Quanton 04-02-2023 HCG.beta subunit Qn 14 m[IU]/mL High 1-3 [facility] Comment on above: Result Comment: GEST ATIONAL AGE HCG RANGE (mIU/mL) NON- <1-3 0.2-1 WEEKS 5-50 1-2 WEEKS 50-500 2-3 WEEKS 100-5,000 3-4 WEEKS 500-10,000 4-5 WEEKS 1,000-50,000 5-6 WEEKS 10,000-100,000 6-8 WEEKS 15,000-200,000 8-12 WEEKS 10,000-100,000 Performed By: #### 2 [id number] ####[facility] [address] [place] [address] CHEMISTRYOrdered By: SYSTEM SYSTEM on 04-02-2023 HCG.beta subunit Qn 14 m[IU]/mL High 1 - 3 mIU/mL FT Remisol Consent for Treatmenton Consent for Treatment [id number] #1.00CD:127 [facility] Physician Orderon 04-02-2023 Physician Order [id number] 8#1.00CD:127 [facility] Lab Reportson 01-22-2023 Lab Reports [id number]# 1.00CD:127 [facility] Family Medicine Office/Clini c Noteon 01-19-2023 Family [...] 2. High risk medication use (Z79.899: Other intermediate project manager (current) drug therapy) 01/19/2023 08:20:29 I certify [...] HARDEN, Jory Owusu In 3 months [address] [place] [address]- Additional Instructions: f/u ADHD Patient Education Health [...] cotesting (01/01 (more content not included)... Normal [facility] Comment on above: Result Comment: Elec trodoraally [...] care provider or a mental health rn primary care. Your health care provider may use [...] Behavioral management. You may work with a field hockey and lacrosse coach who is specially trained to help people with ADHD manage and organize activities and function more effectively. Follow these instructions at home: Medicines ? Take ivta-iwg-ugldutw and prescription medicines only as told by [...] are available online (more content not included)... [facility] 12-08-2022 Consent [id number] [facility] Nurse Consultation Noteon Nurse Consultation Note Reason [...] hepatitis B pediatric vaccine 01/20/1993 Recorded Normal [facility] CHEMISTRYOrdered By: SYSTEM SYSTEM on 07-24-2022 Albumin [...] hCG Ql Negative (07/24/22 8:51 PM) Normal [facility] Man Sero URINALYSISOrdered By: [place] Verdugo on [...] Interpretation Code Negative [facility] UA Auto SS [place].plasma/Lithiu m.RBC (Bld) [Mass ratio] 0-3 /HPF Normal [...] [facility] UA Auto SS Urobilinogen Qn (U) [id number] {Imelda'U}/dL Normal 0.0 - 1.0 EU/dL [facility] [...] 10-25-2023 14:43-0400 Blood Pressure Location Oren Mohamud [facility] 10-25-2023 14:43-0400 Body temperature 100.4 [degF] Oren Mohamud [facility] 10-25-2023 14:43-0400 Diastolic blood pressure 76 mm[Hg] Oren Mohamud [facility] 10-25-2023 14:43-0400 Heart rate 139 /min Oren Mohamud [facility] 10-25-2023 14:43-0400 SaO2% (BldA) [Mass fraction] 98 % Oren Mohamud [facility] 10-25-2023 14:43-0400 Systolic blood pressure 116 mm[Hg] Oren Mohamud [facility] 10-04-2023 13:58-0500 Blood Pressure Location Jory Doran [facility] 10-04-2023 13:58-0500 Body temperature 98.78 [degF] Jory Doran [facility] 10-04-2023 13:58-0500 Diastolic blood pressure 64 mm[Hg] Jory Doran [facility] 10-04-2023 13:58-0500 Heart rate 88 /min Jory Doran [facility] 10-04-2023 13:58-0500 SaO2% (BldA) [Mass fraction] 98 % Jory Doran [facility] 10-04-2023 13:58-0500 Systolic blood pressure 122 mm[Hg] Jory Doran [facility] 09-08-2023 08:07-0500 Body weight 86.184 kg DIMITRI ERAN VELEZ [facility] Comment on above: Performed By: #### [id number] ####[facility] [id number] [place] [address] 07-07-2023 16:00-0500 Diastolic blood pressure 81 mm[Hg] Rik Crespo [facility] 07-07-2023 16:00-0500 Heart rate 90 /min Rik Crespo [facility] 07-07-2023 16:00-0500 Mean blood pressure 101 mm[Hg] Rik Crespo [facility] 07-07-2023 16:00-0500 SaO2% (BldA) [Mass fraction] 96 % Rik Crespo [facility] 07-07-2023 16:00-0500 Systolic blood pressure 141 mm[Hg] Rik Crespo [facility] 07-07-2023 15:08-0500 Diastolic blood pressure 79 mm[Hg] Rik Crespo [facility] 07-07-2023 15:08-0500 Heart rate 96 /min Rik Zak [facility] 07-07-2023 15:08-0500 Mean blood pressure 92 mm[Hg] Rik Zak [facility] 07-07-2023 15:08-0500 Respiratory rate 15 /min Rik Zak [facility] 07-07-2023 15:08-0500 SaO2% (BldA) [Mass fraction] 99 % Rik Crespo [facility] 07-07-2023 15:08-0500 Systolic blood pressure 119 mm[Hg] Rik Crespo [facility] 07-07-2023 13:33-0500 Body temperature 98.24 [degF] Rik Crespo [facility] 07-07-2023 13:33-0500 Diastolic blood pressure 91 mm[Hg] Rik Crespo [facility] 07-07-2023 13:33-0500 Heart rate 110 /min Rik Zak [facility] 07-07-2023 13:33-0500 Respiratory rate 16 /min Rik Crespo [facility] 07-07-2023 13:33-0500 SaO2% (BldA) [Mass fraction] 100 % Rik Zak [facility] 07-07-2023 13:33-0500 Systolic blood pressure 128 mm[Hg] Rik Zak [facility] 04-30-2023 07:05-0400 Blood Pressure Location Jory Doran [facility] 04-30-2023 07:05-0400 Body temperature 97.7 [degF] Jory Missler [facility] 04-30-2023 07:05-0400 Diastolic blood pressure 62 mm[Hg] Jory Missler [facility] 04-30-2023 07:05-0400 Heart rate 82 /min Jory Missler [facility] 04-30-2023 07:05-0400 SaO2% (BldA) [Mass fraction] 99 % Jory Missler [facility] 04-30-2023 07:05-0400 Systolic blood pressure 118 mm[Hg] Jory Missler [facility] 01-19-2023 07:52-0400 Blood Pressure Location Jory Missler [facility] 01-19-2023 07:52-0400 Diastolic blood pressure 62 mm[Hg] Jory Missler [facility] 01-19-2023 07:52-0400 Heart rate 91 /min Jory Missler [facility] 01-19-2023 07:52-0400 SaO2% (BldA) [Mass fraction] 99 % Jory Missler [facility] 01-19-2023 07:52-0400 Systolic blood pressure 124 mm[Hg] Jory Missler [facility] 09-23-2022 16:18-0500 Blood Pressure Location Jory Missler [facility] 09-23-2022 16:18-0500 Diastolic blood pressure 78 mm[Hg] Jory Missler [facility] 09-23-2022 16:18-0500 Heart rate 96 /min Jory Missler [facility] 09-23-2022 16:18-0500 Respiratory rate 18 /min Jory Missler [facility] 09-23-2022 16:18-0500 SaO2% (BldA) [Mass fraction] 98 % Jory Missler [facility] 09-23-2022 16:18-0500 Systolic blood pressure 118 mm[Hg] Jory Missler [facility] 07-24-2022 23:30-0500 Diastolic blood pressure 79 mm[Hg] Kaylinn Dokken [facility] 07-24-2022 23:30-0500 Heart rate 90 /min Kaylinn Dokken [facility] 07-24-2022 23:30-0500 Respiratory rate 16 /min Kaylinn Dokken [facility] 07-24-2022 23:30-0500 SaO2% (BldA) [Mass fraction] 99 % Kaylinn Dokken [facility] 07-24-2022 23:30-0500 Systolic blood pressure 100 mm[Hg] Kaylinn Dokken [facility] 07-24-2022 22:00-0500 Diastolic blood pressure 75 mm[Hg] Kaylinn Dokken [facility] 07-24-2022 22:00-0500 Heart rate 101 /min Kaylinn Dokken [facility] 07-24-2022 22:00-0500 Mean blood pressure 87 mm[Hg] Kaylinn Dokken [facility] 07-24-2022 22:00-0500 Respiratory rate 18 /min Kaylinn Dokken [facility] 07-24-2022 22:00-0500 SaO2% (BldA) [Mass fraction] 98 % Kaylinn Dokken [facility] 07-24-2022 22:00-0500 Systolic blood pressure 110 mm[Hg] Kaylinn Dokken [facility] 07-24-2022 21:30-0500 Diastolic blood pressure 68 mm[Hg] Kaylinn Dokken [facility] 07-24-2022 21:30-0500 Heart rate 109 /min Kaylinn Dokken [facility] 07-24-2022 21:30-0500 Mean blood pressure 79 mm[Hg] Kaylinn Dokken [facility] 07-24-2022 21:30-0500 Respiratory rate 20 /min Kaylinn Dokken [facility] 07-24-2022 21:30-0500 SaO2% (BldA) [Mass fraction] 97 % Kaylinn Dokken [facility] 07-24-2022 21:30-0500 Systolic blood pressure 100 mm[Hg] Kaylinn Dokken [facility] 07-24-2022 21:00-0500 Heart rate 116 /min Kaylinn Dokken [facility] 07-24-2022 21:00-0500 Mean blood pressure 89 mm[Hg] Kaylinn Dokken [facility] 07-24-2022 20:36-0500 Body temperature 98.78 [degF] Jessica Lua [facility] 07-24-2022 20:36-0500 Heart rate 130 /[facility] Encounters Encounter Date Encounter Type Care Provider Facility Start: 10-25-2023 End: 10-26-2023 ambulatory Oren Mohamud Facility:[facility] Start: 10-25-2023 End: 10-25-2023 Patient encounter procedure Oren Mohamud [facility] Start: 10-25-2023 End: 10-25-2023 ambulatory MIRLANDE EDGARD Not Available Start: 10-21-2023 End: 10-22-2023 ambulatory Mirlande R EDGARD Facility:[facility] Start: 10-21-2023 End: 10-21-2023 Patient encounter procedure Mirlande R EDGARD [facility] Start: 10-04-2023 End: 10-05-2023 ambulatory Jory Doran Facility:[facility] Start: 10-04-2023 End: 10-04-2023 Patient encounter procedure Jory Doran [facility] Start: 09-27-2023 End: 09-27-2023 ambulatory MIRLANDE EDGARD Not Available Start: 09-03-2023 End: 09-04-2023 ambulatory Mirlande R EDGARD Facility:[facility] Start: 09-03-2023 End: 09-03-2023 Patient encounter procedure rita salinas [facility] Start: 08-23-2023 End: 08-23-2023 ambulatory RITA SALINAS Not Available Start: 07-22-2023 End: 07-22-2023 ambulatory MIRLANDE EDGARD Not Available Start: 07-16-2023 End: 07-17-2023 ambulatory Jory Doran Facility:[facility] Start: 07-07-2023 End: 07-07-2023 Emergency department patient visit Rik Crespo Facility:[facility] Start: 07-07-2023 End: 07-07-2023 Emergency department patient visit Rik Crespo [facility] Start: 06-18-2023 End: 06-18-2023 ambulatory RITA SALINAS Not Available Start: 05-27-2023 End: 05-28-2023 ambulatory Mirlande R EDGARD Facility:[facility] Start: 05-27-2023 End: 05-27-2023 Patient encounter procedure Mirlande R EDGARD [facility] Start: 05-25-2023 End: 05-26-2023 ambulatory Mirlande R EDGARD Facility:[facility] Start: 05-25-2023 End: 05-25-2023 Patient encounter procedure Mirlande R EDGARD [facility] Start: 04-30-2023 End: 05-01-2023 ambulatory Jory Doran Facility:[facility] Start: 04-30-2023 End: 04-30-2023 Patient encounter procedure Jory Doran [facility] Start: 04-09-2023 End: 04-10-2023 ambulatory DIMITRI BARILLAS DO Facility:[facility] Start: 04-09-2023 End: 04-09-2023 Patient encounter procedure DIMITRI BARILLAS DO [facility] Start: 04-02-2023 End: 04-03-2023 ambulatory DIMITRI BARILLAS DO Facility:[facility] Start: 04-02-2023 End: 04-02-2023 Patient encounter procedure DIMITRI BARILLAS DO [facility] Start: 03-15-2023 End: 03-16-2023 ambulatory Narcisa Gordon Facility[facility] Start: 03-15-2023 End: 03-15-2023 Patient encounter procedure Narcisa Gordon [facility] Start: 01-19-2023 End: 01-20-2023 ambulatory Joryantoinette Doran Facility:[facility] Start: 01-19-2023 End: 01-19-2023 Patient encounter procedure Jory Doran [facility] Start: 01-19-2023 End: 01-19-2023 Well adult monitoring check done Jory Doran [facility] Start: 12-08-2022 End: 12-09-2022 ambulatory [facility] Start: 12-08-2022 End: 12-08-2022 Patient encounter procedure Jory Doran [facility] Start: 10-28-2022 ambulatory DIMITRI BARILLAS DO Facilit y:[facility] Start: 09-23-2022 End: 09-23-2022 Patient encounter procedure Jory Doran [facility] Start: 07-24-2022 End: 07-24-2022 Emergency department patient visit Jessica Lua [facility] Start: 10-20-2021 End: 10-20-2021 Lab Drop off JORY DORAN [facility] Procedures Date Procedure Procedure Detail Performing Clinician [...] influenza virus vaccine, unspecified formulation rita salinas [facility] 09-26-2022 SARS-CoV-2 (COVID-19 ) [id number] Jory Doran [facility] 06-17-2022 influenza virus vaccine, unspecified formulation Jory Doran [facility] 07-27-2021 SARS-CoV-2 (COVID-19 ) mRNA BNT-162b2 vax Jory Doran [facility] 05-15-2021 influenza virus vaccine, unspecified formulation Jory Doran [facility] 11-15-2020 COVID-19, mRNA, LNP- S, PF, 30 mcg/0.3 mL dose; Translations: [[employer] COVID-19 Vaccine] JORY DORAN [facility] Comment on above: Reason for Medicatio n: Prophylaxis 10-18-2020 COVID-19, mRNA, LNP- S, PF, 30 mcg/0.3 mL dose; Translations: [Pfizer-BioNTech COVID-19 Vaccine] JORY DORAN [facility] Comment on above: Reason for Medicatio n: Prophylaxis 05-13-2020 influenza virus vaccine, unspecified formulation Jory Missler [facility] 05-19-2019 influenza virus vaccine, unspecified formulation Jory Missler [facility] 04-28-2018 influenza virus vaccine, unspecified formulation Jory Missler [facility] 05-13-2016 influenza virus vaccine, unspecified formulation Jory Missler [facility] 11-21-2015 measles, mumps and rubella virus vaccine Jory Missler [facility] 11-21-2015 tetanus toxoid, redu stephon diphtheria toxoid, and acellular pertussis vaccine, adsorbed Jory Missler [facility] 06-15-2015 influenza virus vaccine, unspecified formulation Jory Missler [facility] 05-12-2013 influenza virus vaccine, unspecified formulation Jory Missler [facility] 07-05-2012 influenza virus vaccine, unspecified formulation Jory Missler [facility] 12-04-2011 typhoid vaccine, unspecified formulation Jory Missler [facility] 06-21-2007 influenza virus vaccine, unspecified formulation Jory Missler [facility] 11-24-2006 HPV, unspecified formulation Jory Missler [facility] 11-24-2006 varicella virus vaccine Jacl ynn Missler [facility] 03-31-2006 tetanus toxoid, redu stephon diphtheria toxoid, and acellular pertussis vaccine, adsorbed Jory Doran [facility] 04-25-2003 influenza, whole Jory Mis sler [facility] 05-09-2002 influenza, whole Jory Mis sler [facility] 02-14-1998 DTaP, unspecified formulation Jory Doran [facility] 02-14-1998 measles, mumps and rubella virus vaccine Jory Doran [facility] 02-18-1995 varicella virus vaccine Blayne Doran [facility] 08-21-1994 DTaP, unspecified formulation Jory Doran [facility] 04-27-1994 haemophilus influenz ae type b vaccine, PRP-T conjugate Jory Doran [facility] 04-27-1994 measles, mumps and rubella virus vaccine Jory Doran [facility] 10-01-1993 hepatitis B vaccine, pediatric or pediatric/adolescent dosage Jory Doran [facility] 06-30-1993 DTaP, unspecified formulation Jory Doran [facility] 06-30-1993 Hib, unspecified formulation Jory Doran [facility] 04-21-1993 DTaP, unspecified formulation Jory Doran [facility] 04-21-1993 Hib, unspecified formulation Jory Missler [facility] 02-17-1993 DTaP, unspecified formulation Jory Missler [facility] 02-17-1993 hepatitis B vaccine, pediatric or pediatric/adolescent dosage Jory Missler [facility] 02-17-1993 Hib, unspecified formulation Jory Missler [facility] 01-20-1993 hepatitis B vaccine, pediatric or pediatric/adolescent dosage Jory ler [facility] Payers Date Payer Category Payer Unknown [id number] 1992 Unknown [id number] 2.16.84 [id number] 1992 Unknown [id number] 2.16.84 0.1.406040.3.579.2.1258 1992 Unknown [id number] 2.16.84 0.1.011581.3.579.2.1258 1992 Unknown [id number] 2.16.840 .1.181883.3.579.2.1258 1992 Unknown [id number] 2.16.840 .1.051790.3.579.2.1258 1992 Unknown [id number] 2.16.8 40.1.266230.3.579.2. 1992 Unknown [id number] 2.16.8 40.1.989844.3.579.2. 1992 Unknown [id number] 2.16.8 40.1.616034.3.579.2. 1992 Unknown [id number] 2.16.8 40.1.660293.3.579.2. 1992 Unknown [id number] 2.16.8 40.1.333291.3.579.2.727 1992 Unknown [id number] 2.16.8 40.1.242617.3.579.2.727 1992 Unknown [id number] 2.16.8 40.1.377355.3.579.2.727 1992 Unknown [id number] 2.16.8 40.1.992405.3.579.2.7 1992 Unknown [id number] 2.16.8 40.1.188363.3.579.2.727 1992 Unknown [id number] 2.16.8 40.1.332930.3.579.2.727 1992 Unknown [id number] 2.16.8 40.1.896545.3.579.2.727 1992 Unknown [id number] 2.16.8 40.1.057089.3.579.2.7 1992 Unknown [id number] 2.16.8 40.1.002151.3.579.2.727 1992 Unknown [id number] 2.16.8 40.1.344715.3.579.2.727 1992 Unknown [id number] 2.16.8 40.1.917640.3.579.2.727 1992 Unknown [id number] 2.16.8 40.1.860582.3.579.2.727 Social History Date Type Detail Facility Tobacco smoking status [facility] Sex Assigned At Female [facility] Tobacco smoking status No Smokin g Status Entered [facility] Start: 09-23-2022 End: 10-25-2023 Tobacco smoking status Never smoked tobacco (finding) [facility] Tobacco smoking status Never [facility] Functional Status Date Assessment Result Facility 10-25-2023 Functional Status N/A [facility] 10-04-2023 Functional Status N/A [facility] 07-07-2023 Functional Status N/A [facility] 04-30-2023 Functional Status N/A [facility] 01-19-2023 Functional Status N/A [facility] 09-23-2022 Functional Status N/A [facility] 07-24-2022 Functional Status N/A [facility] Clinical Notes 07-24-2022 to 10-25-2023 Laboratory Note Date & Type Note Facility 10-25-2023 Hospital Discharge instructions Follow Up Care 10/25/2023 13:53:55 With:Jory Monet Address: [address] [place] [address], [facility] [place] [address] When: Unknown [facility] 09-27-2023 Hospital Discharge instructions Patient [...] you. If there is an emergency, a junior systems engineer can quickly see what medicines you are taking. Tell your health care provider about all your medicines, including tbsq-waw-qxekbkb medicines, vitamins, and herbal or dietary supplements. [...] you. If there is an emergency, a junior systems engineer can quickly see what medicines you are [...] ?Use a local government, hospital, or pharmacy slszyrrg-edqr-fbhv program. ?If you cannot return the medicine, [...] provider. Document Revised: 02/24/2022 Document Reviewed: 02/24/2022 [employer] Patient Education 2022 [employer]. 09/27/2023 10:53:00 Attention Deficit Hyperactivity Disorder, Adult [...] care provider or a mental health rn primary care. Your health care provider may use [...] Behavioral management. You may work with a field hockey and lacrosse coach who is specially trained to help people with ADHD manage and organize activities and function more effectively. Follow these instructions at home: Medicines Take ezqo-iqs-jnbxnph and prescription medicines only as told by [...] Attention Deficit Disorder Association (ADDA): add.org National [place] of Mental Health ([facility]): nimh.nih.gov Contact a health care provider if: [...] the National Suicide Prevention Lifeline at or 148. This is open 24 hours a day Text the Crisis Text Line at 810441. Summary ADHD is a mental health disorder [...] provider. Document Revised: 11/06/2022 Document Reviewed: 11/06/2022 [employer] Patient Education 2022 [employer]jo. Follow Up Care 07/16/2023 09:49:12 With:Jory Monet Address: [address], [place] [address]- When:Within 3 Month(s) Comments:f/u ADHD, med recheck [facility] 07-07-2023 Hospital Discharge instructions Patient [...] go. Do not hold it in. Take mamj-rcx-cchqsvp and prescription medicines only as told by [...] to keep your urine pale yellow. Take uwis-bgn-vvhqtcu and prescription medicines only as told by your health care provider. This includes any fiber supplements. This information is not intended to replace advice given to you by your health care provider. Make sure you discuss any questions you have with your health care provider. Document Revised: 06/05/2020 Document Reviewed: 06/05/2020 [employer] Patient Education 2022 Banjo. Follow Up Care 07/07/2023 13:26:20 With:Jory Doran Address: [address] [place] [id number] [facility] (1) When:07/10/2023 16:11:14 Comments:Call the office of [...] no results drink the other 1 tomorrow. [facility] 04-26-2023 Hospital Discharge instructions Patient Education 04/26/2023 [...] numbers. This can be done either in [place] ([place] or metric measurements. Note that charts and online BMI calculators are available to help you find your BMI quickly and easily without having to do these calculations yourself. To calculate your BMI in [place] ([place] measurements: 1.Measure your weight in pounds [...] Centers for Disease Control and Prevention: www.cdc.gov [place] Heart Association: www.heart.org National Heart, Lung, and Blood Guide Rock: www.nhlbi.nih.gov Summary Body mass index (BMI) is a number that is calculated from a person's weight and height. BMI may help estimate how much of a person's weight is composed of fat. BMI can help identify those who may be at higher risk for certain medical problems. BMI can be measured using Grenadian measurements or metric measurements. BMI charts are used to identify whether you are underweight, normal weight, overweight, or obese. This information is not intended to replace advice given to you by your health care provider. Make sure you discuss any questions you have with your health care provider. Document Revised: 04/10/2020 Document Reviewed: 02/16/2020 [employer] Patient Education 2022 [employer]jo. 04/26/2023 07:02:53 Attention Deficit Hyperactivity Disorder, Adult [...] care provider or a mental health rn primary care. Your health care provider may use [...] Behavioral management. You may work with a field hockey and lacrosse coach who is specially trained to help people with ADHD manage and organize activities and function more effectively. Follow these instructions at home: Medicines Take abev-aas-gbdtjpt and prescription medicines only as told by [...] Attention Deficit Disorder Association (ADDA): www.add.org National [place] of Mental Health (NIMH): www.nimh.nih.gov Contact a [...] the National Suicide Prevention Lifeline at or 133 in the [place] This is open 24 [...] provider. Document Revised: 02/11/2022 Document Reviewed: 12/11/2019 [employer] Patient Education 2022 [employer]jo. Follow Up Care 03/25/2023 08:48:35 With:Jory Monet Address: [address] [place] [address], [facility] [place] [address]- When:Within 3 Month(s) Comments:f/u ADHD, med recheck [facility] 01-19-2023 Evaluation + Plan note Future Scheduled TestsTSH With T4fr Reflex 01/19/23CBC w/ Auto Diff 01/19/23Comprehensive Metabolic Panel 01/19/23Lipid Panel 01/19/23 [facility] 01-19-2023 Hospital Discharge instructions Patient [...] provider. Document Revised: 12/08/2021 Document Reviewed: 12/08/2021 [employer] Patient Education 2022 [employer]. 01/19/2023 08:20:59 Exercising to Lose Weight Exercising [...] your health care provider or diet and crop nutrition scientist (dietitian). This may include: ?Eating fewer calories. [...] provider. Document Revised: 09/14/2021 Document Reviewed: 09/14/2021 [employer] Patient Education 2022 [employer]. 01/19/2023 08:20:57 Calorie Counting for Weight Loss [...] provider. Document Revised: 08/29/2020 Document Reviewed: 08/29/2020 [employer] Patient Education 2022 [employer]jo. 01/19/2023 08:20:56 BMI for Adults BMI for [...] numbers. This can be done either in [place] ([place] or metric measurements. Note that charts and online BMI calculators are available to help you find your BMI quickly and easily without having to do these calculations yourself. To calculate your BMI in [place] ([place] measurements: 1.Measure your weight in pounds [...] Centers for Disease Control and Prevention: www.cdc.gov [place] Heart Association: www.heart.org National Heart, Lung, and Blood Guide [place]: www.nhlbi.nih.gov Summary Body mass index (BMI) is a number that is calculated from a person's weight and height. BMI may help estimate how much of a person's weight is composed of fat. BMI can help identify those who may be at higher risk for certain medical problems. BMI can be measured using Grenadian measurements or metric measurements. BMI charts are used to identify whether you are underweight, normal weight, overweight, or obese. This information is not intended to replace advice given to you by your health care provider. Make sure you discuss any questions you have with your health care provider. Document Revised: 04/10/2020 Document Reviewed: 02/16/2020 [employer] Patient Education 2022 [employer]jo. 01/19/2023 08:20:55 Attention Deficit Hyperactivity Disorder, Adult [...] care provider or a mental health rn primary care. Your health care provider may use [...] Behavioral management. You may work with a field hockey and lacrosse coach who is specially trained to help people with ADHD manage and organize activities and function more effectively. Follow these instructions at home: Medicines Take ozoi-zrv-ylarqif and prescription medicines only as told by [...] Attention Deficit Disorder Association (ADDA): www.add.org National Guide Rock of Mental Health (NIMH): www.nimh.nih.gov Contact a [...] the National Suicide Prevention Lifeline at or 142 in the [place] This is open 24 [...] provider. Document Revised: 02/11/2022 Document Reviewed: 12/11/2019 [employer] Patient Education 2022 Banjo. Follow Up Care 01/18/2023 08:48:37 With:Jory Monet Address: [address] [place] [address], [facility] [place] [address]- When:Within 3 Month(s) Comments:f/u ADHD [facility] 09-23-2022 Hospital Discharge instructions Patient [...] height. This can be done either in [place] ([place] or metric measurements. Note that charts are available to help you find your BMI quickly and easily without having to do these calculations yourself. To calculate your BMI in Grenadian ([place] measurements, your health care provider will: [...] medical problems. BMI can be measured using Grenadian measurements or metric measurements. To interpret your [...] 03/30/2005 Document Revised: 07/01/2018 Document Reviewed: 06/01/2018 [employer] Patient Education 2020 Banjo. 09/23/2022 16:39:29 Attention Deficit Hyperactivity Disorder, Adult [...] care provider or a mental health rn primary care. Your health care provider may use [...] Behavioral management. You may work with a field hockey and lacrosse coach who is specially trained to help people with ADHD manage and organize activities and function more effectively. Follow these instructions at home: Medicines Take nngr-ptn-dwwyern and prescription medicines only as told by [...] Attention Deficit Disorder Association (ADDA): www.add.org National Guide Rock of Mental Health (NIMH): www.nimh.nih.gov Contact a [...] 03/10/2018 Document Revised: 12/11/2019 Document Reviewed: 12/11/2019 [employer] Patient Education 2019 Banjo. Follow Up Care 09/17/2022 12:43:24 With:Jory Monet Address: [address], [place] [address]- When:Within 3 Month(s) Comments:f/u ADHD [facility] 07-25-2022 Hospital Discharge instructions Patient Education 07/24/2022 23:42:28 Nausea and Vomiting, Adult, Qbap-em-Njlv Nausea and Vomiting, Adult Nausea is feeling [...] fruit juice). ?Low-calorie sports drinks. Eat bland, lpxx-ju-ilktxr foods in small amounts as you are able, such as: ?Bananas. ?Applesauce. ?Rice. ?Low-fat (lean) meats. ?[place]. ?Crackers. Avoid drinking fluids that have a lot of sugar or caffeine in them. This includes energy drinks, sports drinks, and soda. Avoid alcohol. Avoid spicy or fatty foods. General instructions Take ofho-lcq-apuveve and prescription medicines only as told by your doctor. Drink enough fluid to keep your pee (urine) pale yellow. Wash your hands often with soap and water. If you cannot use soap and water, use hand color maker. Make sure that all people in your [...] too much water in your body. Take osln-fml-mytgmic and prescription medicines only as told by [...] 01/04/2009 Document Revised: 11/10/2019 Document Reviewed: 12/27/2018 [employer] Patient Education 2020 Banjo. 07/24/2022 23:42:28 Diarrhea, Adult, Bfjk-nr-Xdaf Diarrhea, Adult Diarrhea is when you pass [...] sugar or caffeine in them. Eat bland, jvly-br-lyikfz foods in small amounts as you are able. These foods include: ?Bananas. ?Applesauce. ?Rice. ?Low-fat (lean) meats. ?P[place]. ?Crackers. Avoid alcohol. Avoid spicy or fatty foods. Medicines Take dlnh-rkz-sfbgelf and prescription medicines only as told by your doctor. If you were prescribed an antibiotic medicine, take it as told by your doctor. Do not stop using the antibiotic even if you start to feel better. General instructions Wash your hands often using soap and water. If soap and water are not available, use a hand color maker. Others in your home should wash their [...] sold at pharmacies and stores. Eat bland, bvmb-ch-jtipci foods in small amounts as you are [...] 01/04/2009 Document Revised: 12/23/2018 Document Reviewed: 12/23/2018 [employer] Patient Education 2020 Banjo. Follow Up Care 07/24/2022 20:30:40 With:Elina Jean Address: [place] [address] Business (1) When:07/27/2022 Comments:You can use the Zofran, Bentyl as prescribed as needed for pain and nausea. Please follow-up with your primary care doctor in the next 2 to 3 days. Please return to the ED for any new or worsening symptoms. [facility] 07-24-2022 Evaluation + Plan note Extrac dewayne [...] Diagnostic Tests Pending * Urine Culture 07/24/22 [facility] No data available for this section [facility] Future Appointments Appointment Date:04/30/2023 07:00:00 AM Scheduled Provider:Jory Monet Location:[facility] Appointment Type: Open Future Scheduled Tests Laboratory* TSH With T4fr Reflex 01/19/23 * CBC w/ Auto Diff 01/19/23 * Comprehensive Metabolic Panel 01/19/23 * Lipid Panel [facility]/19/23 [facility] Future Appointments Appointment Date:07/30/2023 07:00:00 AM Scheduled Provider:Jory Monet Location:[facility] Appointment Type: Open Future Scheduled Tests Laboratory* TSH With T4fr Reflex 01/19/23 * CBC w/ Auto Diff 01/19/23 * Comprehensive Metabolic Panel 01/19/23 * Lipid Panel 01/19/23 [facility] Evaluation + Plan note Future Appointments Appointment Date:07/16/2023 09:20:00 AM Scheduled Provider:Jory Monet Location:[facility] Appointment Type: Open Future Scheduled Tests Laboratory* TSH With T4fr Reflex 01/19/23 * CBC w/ Auto Diff 01/19/23 * Comprehensive Metabolic Panel 01/19/23 * Lipid Panel 01/19/23 [facility] Future Appointments Appointment Date:10/05/2023 09:20:00 AM Scheduled Provider:Jory Monet Location:[facility] Appointment Type:FM Open Future Scheduled Tests Laboratory* TSH With T4fr Reflex 01/19/23 * CBC w/ Auto Diff 01/19/23 * Comprehensive Metabolic Panel 01/19/23 * Lipid Panel [facility]/19/23 [facility] Future Appointments Appointment Date:10/05/2023 09:20:00 AM Scheduled Provider:Jory Monet Location:[facility] Appointment Type:FM Open Diagnostic Tests Pending * AFP Maternal 09/03/23 Future Scheduled Tests Laboratory* TSH With T4fr Reflex 01/19/23 * CBC w/ Auto Diff 01/19/23 * Comprehensive Metabolic Panel 01/19/23 * Lipid Panel 01/19/23 [facility] Future Appointments Appointment Date:01/03/2024 11:20:00 AM Scheduled Provider:Jory Monet Location:[facility] Appointment Type:FM Open Future Scheduled Tests Laboratory* TSH With T4fr Reflex 01/19/23 * CBC w/ Auto Diff 01/19/23 * Comprehensive Metabolic Panel 01/19/23 * Lipid Panel 01/19/23 [facility] Evaluation + Plan note Future Appointments Appointment Date:01/18/2024 08:00:00 AM Scheduled Provider:Jory Monet Location:[facility] Appointment Type:FM Open Future Scheduled Tests Laboratory* TSH With T4fr Reflex 01/19/23 * CBC w/ Auto Diff 01/19/23 * Comprehensive Metabolic Panel 01/19/23 * Lipid [facility]19[facility]23 [facility] No data available for this section [facility] No data available for this section [facility] Summary Purpose Family History No Family History Records Found Advance Directives No Advanced Directives Records FoundNo Advanced Directives Records Found Additional Source Comments Patient Care team informatio n (unrecognized section and content) Personnel Name: Elina Jean MD Address: Address: [address] [place] Personnel Name: Elina Jean MD Address: Address: [address] [place] Personnel Name: Jory Monet Address: Address: [address], [address] Personnel Name: [employer]jit[employer]Jory Address: Address: [address], [address] Personnel Name: [employer]ory Address: Address: [address], [address] Personnel Name: [employer] Address: Address: [address], [address] Personnel Name: aniket HAMILTONBaljitCJory Address: Address: [address], [address] Personnel Name: [employer] Address: Address: [address], [address] Personnel Name: Espinoza JOY-CJory Address: Address: [address], [address] Personnel Name: [employer]ory Address: Address: [address], [address] Personnel Name: Espinoza JOY-CJory Address: Address: [address], [address] Personnel Name: [employer] JOY-CJory Address: Address: [address], [address] Personnel Name: [employer]za JOY-CJory Address: Address: [address], [address] Personnel Name: Jory Rascon Address: Address: [address], [address] Personnel Name: Jory Monet Address: Address: [address], [place] [address]- Personnel Name: Jory Monet Address: Address: [address], [place] [address]- INFORMATION SOURCE (unrecogn ized section and content) DATE CREATED AUTHOR 10/26/2023 [facility] DATE CREATED AUTHOR AUTHOR'S ORGANIZ ATION 10/26/2023 [facility] FOR RECORDS PERTAINING TO PATIENTS WHO ARE [...] BE BASED ON THE PRIMARY CLINICAL RECORDS. [facility] [employer]. provides no warranty or guarantee of the accuracy or completeness of information in this document.
[2023-11-05 07:51] LABS: Glucose Fasting 85 mg/dL (<95)
[2023-11-05 09:12] LABS: Glucose 1 Hour 181 mg/dL (<180)
[2023-11-05 10:46] LABS: Glucose 2 Hour 198 mg/dL (<155)
[2023-11-05 12:04] LABS: Glucose 3 Hour 169 mg/dL (<140)
== END 2023-11-05 07:31 | disposition home or self-care (01) ==
LOC: LAB 07:30
PROVIDERS: Visit Provider Obstetrics & Gynecology
DX: R73.09 Other abnormal glucose (principal)
CPT/HCPCS: 36415; 82951; 82952

== ENCOUNTER 2023-11-15 08:08 | Outpatient (OUT) | payer BC, SELFPAY | END 2023-11-15 16:07 | disposition home or self-care (01) | PROVIDERS: Visit Provider Obstetrics & Gynecology | DX: Z86.32 Personal history of gestational diabetes (principal) | CPT/HCPCS: 95250; G0108 ==